=== PATIENT | female | born 1940 | race Hispanic/Latino ===

== ENCOUNTER 2016-12-01 00:22 | Day surgery (SDC) | payer MEDICAID ==
[2016-12-01] VITALS (7 sets, daily range): BP systolic 142–174; BP diastolic 51–130; PULSE 67–79; RESP 16–18; O2SAT 94–99
[~2016-12-01] VITALS: Ht 152.4 cm; Wt 63.0 kg
[~2016-12-01 00:22] MED LIST: ASPI325T32 PO; CALC667C9 PO; CINA90TA PO; FOLI1TAB18 PO; INSU100I13 SUBQ; INSU100I18 SUBQ; METO50TA3 PO; MULT-907 PO; SEVE800T7 PO
[2016-12-01 11:01] LABS: BASOPHILS % (AUTO) 0.3 % (0-3); EOSINOPHILS % (AUTO) 1.2 % (0-5); MONOCYTES % (AUTO) 6.7 % (4-12); Mean Corpuscular Hemoglobin 31.2 pg (27.0-35.0); Mean Corpuscular Volume 96.1 fL (81-100); NEUTROPHILS % (AUTO) 73.7 % (40-74); Platelet Count 223 bil/L (150-400)
[2016-12-01 11:22] LABS: INR 0.98 ratio
[2016-12-01] MEDS ORDERED: 0.9% Sodium Chloride 500 ML ONE (14:00)
[2016-12-01] MEDS ORDERED: Dextrose 5% 0.45% NaCl 1,000 ML IV ONE (14:00)
--- NOTE | 2016-12-01 15:58 | DRSVH ---
PROCEDURE: 1. Left arm AV fistulogram. 2. Conscious sedation x22 minutes. INDICATIONS: Malfunctioning arteriovenous fistula. COMPARISON: [facility], XA, ARTERIO VENOUS FISTULOGRAM (PNL), 09/02/2014, 11:47. TECHNIQUE: Informed, written consent from the patient was obtained via an park interpreter prior to the pr ocedure. Patient was brought to the angiography suite, and conscious sedation was administered intrav enously by shelter staff, while continuous cardiorespiratory monitoring was performed. Jail[place] l sterile barrier technique, hand hygiene, skin preparation, and sterile ultrasound technique (if ult rasound was utilized) was followed. A mask, sterile gown, sterile gloves, a large sterile sheet, hand hygiene, and 2% chlorhexidine or iodine was utilized for skin antisepsis. The left arm was prepped a nd draped sterilely, and the skin and subcutaneous tissues overlying the peripheral aspect of the venancio ous limb were infused with lidocaine. The peripheral aspect of the venous limb was accessed antegrade with a micropuncture set. Contrast was injected for arteriovenous fistulogram. The sheath was remove d and pressure was applied for hemostasis. FLUOROSCOPY TIME: 0.6 minutes FINDINGS: No change in mild stenosis at the arteriovenous anastomosis.remainder of the cephalic vein and venous limb is patent. Mild focal stenosis within the left subclavian vein. Central draining venancio ous structures are otherwise patent. IMPRESSION: No significant stenosis involving left upper extremity arteriovenous fistula. Dictated by: Jg Ortiz M.D. on 12/01/2016 at 15:42 Approved by: Jg Ortiz M.D. on 12/01/2016 at 15:56
--- NOTE | 2016-12-01 16:13 | NUR ---
discharge instruction reviewed in Swedish and Stateless with patient and her son who is fluent in Stateless,
--- NOTE | 2016-12-01 16:14 | NUR ---
Pt discharged via wheelchair.
== END 2016-12-01 23:59 | disposition home or self-care (01) ==
LOC: SOUO 00:22
PROVIDERS: ATTEND Radiology Diagnostic Radiology
DX: T82.510A Breakdown (mechanical) of surgically created arteriovenous fistula, initial encounter (principal); R22.32 Localized swelling, mass and lump, left upper limb; I87.1 Compression of vein; Y83.2 Surgical operation with anastomosis, bypass or graft as the cause of abnormal reaction of the patient, or of later complication, without mention of misadventure at the time of the procedure; D63.1 Anemia in chronic kidney disease; N18.6 End stage renal disease; Z99.2 Dependence on renal dialysis
CPT/HCPCS: 36415; 36901; 80048; 85025; 85610; 85730; 99152; C1769; Q9967

== ENCOUNTER 2017-01-04 16:43 | Inpatient (IN) | payer MEDICAID ==
[~2017-01-04] VITALS: Ht 147.3 cm; Wt 57.0 kg
[2017-01-04 16:54] VITALS: BP 170/64; PULSE 67; RESP 16; O2SAT 97
--- NOTE | 2017-01-04 18:17 | ED.REPORT ---
HPI-General Illness Date of Service Jan 04, 2017 ED Provider: Ish Manning DO Patient is a 76 year old female with a history of ESRD on dialysis, diabetes mellitus, diverticulitis with perforation, C diff colitis, small bowel obstruction, and recurrent UTIs who presents to the ED after she became confused while at dialysis this afternoon. On arrival to the ED the patient complains of abdominal pain. She localizes her pain to her suprapubic area, with radiation to her back. The patient first states that she did not go to dialysis today, but then states that she "forgot" when she was reminded that she attended dialysis. History is limited by the patient's mental status. Nursing Notes Stated Complaint: SENT BY DIALYSIS,POSS INFECTION Chief Complaint: Female Abdominal Pain Nursing Notes Reviewed: Yes Allergies: Coded Allergies: Cephalosporins (Verified Allergy, Unknown, 01/04/17) causes confusion cefazolin sodium (Verified Allergy, Unknown, NO ADR WITH CEFTRIAXONE IN ER , 01/04/17) morphine (Verified Adverse Reaction, Intermediate, Hallucinations, 01/04/17 ) Family reported morphine caused hallucination Scheduled Amlodipine (Amlodipine) 10 Mg Tablet 10 MG PO QAM Aspirin (Aspirin) 325 Mg Tablet.dr 325 MG PO QAM Calcium Acetate (Calcium Acetate) 667 Mg Capsule 667 MG PO TIDWM Ciclopirox Olamine (Ciclopirox) 15 Gm Cream..g. 1 APPLIC TP BID Cinacalcet HCl (Sensipar) 90 Mg Tablet 90 MG PO QAM Clonidine 0.2 mg/day Patch (Catapres TTS-2) 1 Each Patch 1 PATCH TRANSDERM WEEKLY Erythromycin Ophth Oint (Erythromycin Ophth Oint) 3.5 Gm Oint...g. 1 APPL TOPICAL BID APPLY TO TOES FOR INFECTION Folic Acid (Folic Acid) 1 Mg Tablet 5 MG PO DAILY Hydralazine (Hydralazine) 50 Mg Tablet 50 MG PO TID Insulin Glargine (Lantus U100 Solostar Insulin Pen) 100 Unit/1 Ml Insuln.pen 5- 10 UNIT SUBQ HS Insulin Lispro (HumaLOG U100 Insulin Pen) 100 Unit/1 Ml Insuln.pen 1-12 UNITS SUBQ TID-INSULIN Blood Sugar Lispro Correction <151 0 units 151-175 1 unit 176-200 2 units 201-225 3 units 226-250 4 units 251-275 5 units 276-300 6 units 301-325 7 units 326-350 8 units 351-375 9 units 376-400 10 units >400 12 units Check blood sugars before meals and at bedtime. Use correction factor only before meals. Isosorbide MN ER (Isosorbide MN ER) 120 Mg Tab.er.24h 120 MG PO QAM Metoprolol Tartrate (Metoprolol Tartrate) 50 Mg Tablet 50 MG PO BID Multivitamin, Min Cmb#25/FA/D3 (Dialyvite [place] D Tablet) 1 Each Tablet 1 EACH PO QAM Sevelamer Carbonate (Renvela) 800 Mg Tablet 800 MG PO TIDWM WITH MEALS AND SNACKS General Time Seen by MD: 18:17 Chief Complaint Abdominal pain, Other (confusion) Hx Obtained From: Patient, Son, Trimmer Loader Arrived By: Walk-in Sudden in Onset?: No Onset Occurred: 1 - 4 hours ago Symptom Duration: Since onset Location: : Abdomen Quality: Painful Severity: Current: Moderate Severity: Maximum: Moderate Recent Healthcare: Recent doctor visit Similar Sx Previous: Yes Past Medical History 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 Dyslipidemia. 2. End-stage renal disease. a. Secondary hyperparathyroidism. b. 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 3. Recurrent urinary tract infections. Urine culture (December 25, 2013) yielded E. coli resistant to Unasyn, ampicillin, piperacillin, and quinolones. 4. Clostridium difficile colitis. 5. Healthcare associated pneumonia 6. DVT 7. diverticulitis 8. ileus with prior small bowel obstruction Reports: Diabetes mellitus, GERD, Hyperlipidemia, Hypertension Past Surgical History 1. diverticular perforation requiring laparotomy and small-bowel resection and primary anastomosis with postoperative abscess and prolonged antibiotics. 2. AV fistula 3. patellar fracture repair 4. traumatic finger amputations Reports: Cholecystectomy Smoking History Never Smoker Social History Alcohol Use: Denies alcohol use Other Social History: Good social support, Local resident Ambulatory Status Independent Review of Systems Unable to Obtain ROS Mental status (limited by confusion) Full Review of Systems GI: Reports: Abdominal pain Female: Reports: Flank pain Musculoskeletal: Reports: Back pain Psychiatric: Reports: Confusion Physical Exam Vital Signs Vital Signs Date Time Temp Pulse Resp B/P Pulse Ox O2 Delivery O2 Flow Rate FiO2 01/04/17 19:28 36.5 71 18 222/79 97 Room Air 4/18/17 16:54 36.1 67 16 170/64 97 Room Air Initial VS: Reviewed Psychiatric: Mood/affect normal, Behavior normal General/Constitutional: Awake, Alert Alertness: Positive: Confused (does not know why she is in the ED) Head / Eyes: Atraumatic, Normocephalic, PERRL ENT: Airway patent Neck: Supple Respiratory / Chest: Breath sounds NL, Breath sounds = bilat, No respiratory distress, No rales, No rhonchi, No wheezing Cardiovascular: Heart rate NL, Regular rhythm Heart Sounds / Murmur: Positive: Systolic murmur present.. (ejection murmur) Abdomen: Soft Tenderness/Guarding/Rebound: Positive: Tender suprapubic Upper Extremities Upper Extremity / MS: No swelling, No edema Lower Extremity / Pelvis / MS: No swelling, No edema Neurologic: Speech NL, No motor deficits, No sensory deficits, CN II - XII intact Mental Status: Positive: Confused Interpretation & Diagnostics Lab Results Interpretation Result Diagram: 01/04/17 1809 01/04/17 180 Test 01/04/17 17:54 01/04/17 18:09 Urine Color Dark yellow (YELLOW) Urine Appearance Turbid (CLEAR,HAZY) Urine pH 8.0 (5.0-8.0) Urine Specific [place] 1.015 (1.003-1.035) Urine Protein 300mg/dL (NEG,TRACE) Urine Glucose (UA) 100mg/dL (NEGATIVE) Urine Ketones Negativemg/dL (NEGATIVE) Urine Occult Blood Large (NEGATIVE) Urine Nitrite Positive (NEGATIVE) Urine Bilirubin Negative (NEGATIVE) Urine Urobilinogen 1.0mg/dL (NORMAL) Urine Leukocyte Esterase Moderate (NEGATIVE) Urine RBC 11-50/hpf (0-2) Urine WBC 6-10/hpf (0-5) Urine Epithelial Cells None/hpf (NONE-MOD) Urine Crystals None seen (NONE SEEN) Urine Bacteria Many/hpf (NONE-FEW) Urine Hyaline Casts None/lpf (NONE) Urine Granular Casts None seen (NONE SEEN) Urine Waxy Casts None seen (NONE SEEN) Urine Red Blood Cell Casts None seen (NONE SEEN) Urine White Blood Cell Casts None seen (NONE SEEN) Urine Mucus Present (None Seen) Urine Trichomonas None seen (NONE SEEN) Urine Yeast None (NONE SEEN) Urinalysis Comment None Urine Culture Reflexed Indicated White Blood Count 7.8th/mm3 (3.8-10.1) Red Blood Count 3.90mil/mm3 (3.90-5.20) Hemoglobin 12.5g/dL (12.0-15.6) Hematocrit 38.4% (35.0-46.0) Mean Corpuscular Volume 98.5fL (81-100) Mean Corpuscular Hemoglobin 32.1pg (27.0-35.0) Mean Corpuscular Hemoglobin Concent 32.6% (32.0-37.0) Red Cell Distribution Width 14.3% (12.3-15.4) Platelet Count 187bil/L (150-400) Neutrophils (%) (Auto) 72.0% (40-74) Lymphocytes (%) (Auto) 17.0% (14-46) Monocytes (%) (Auto) 8.3% (4-12) Eosinophils (%) (Auto) 2.2% (0-5) Basophils (%) (Auto) 0.4% (0-3) Sodium Level 132mEq/L (134-144) Potassium Level 3.7mEq/L (3.5-5.2) Chloride Level 89mEq/L (97-108) Carbon Dioxide Level 27mmol/L (18-29) Blood Urea Nitrogen 16mg/dL (8-27) Creatinine 3.42mg/dL (0.57-1.00) Estimat Glomerular Filtration Rate 19mL/min (>59) Glucose Level 311mg/dL (60-99) Lactic Acid Level 1.2mmol/L (0.4-2.0) Calcium Level 10.2mg/dL (8.5-10.1) Magnesium Level 1.8mg/dL (1.6-2.6) Total Bilirubin 0.2mg/dL (0.0-1.2) Aspartate Amino Transf (AST/SGOT) 11U/L (0-50) Alanine Aminotransferase (ALT/SGPT) 5U/L (0-32) Alkaline Phosphatase 127U/L (25-165) Total Protein 7.4g/dL (6.4-8.4) Albumin 4.0g/dL (3.4-5.0) Lipase 66U/L (13-60) Procalcitonin 0.21ng/mL (0.00-0.08) X-Ray Chest Interpretation Chest Xray Interpretation: IMPRESSION: Normal for age, except for mildly reduced inspiratory volume, no pneumonia found. Dictated by: Ashutosh Sue M.D. on 01/04/2017 at 19:31 Approved by: Ashutosh Sue M.D. on 01/04/2017 at 19:31 View: Portable Interpretation / Wet Read by: Interpret - Radiologist CT Head Interpretation IMPRESSION: Mild microvascular atherosclerotic change in the deep white matter of each hemisphere, no acute disease. No appreciable global climate change researcher time. Dictated by: Ashutosh Sue M.D. on 01/04/2017 at 19:17 Approved by: Ashutosh Sue M.D. on 01/04/2017 at 19:18 Study: Head CT no contrast Interpretation / Wet Read by: Interpret - Radiologist Re-Eval/Medical Decision Source of Hx: Old records Time of Eval: 19:00 Re-Evaluation/Progress Note: Patient and her son were informed that the patient will be admitted to the hospital for further care. They understand and agree with this plan. All questions were addressed. Consultation : Referral / Consult Name: Herlinda Mehta DO Consulted With: Hospitalist Call Returned at: 19:12 Data Processing Specialist: Will see patient, Agrees with eval, Agrees with plan, Accepts admit Note: Spoke with Dr. Mehta, hospitalist, who agrees to accept admit. Counseled Regarding: Diagnosis, Lab results, Need for admission Discharge & Departure Primary Impression: UTI (urinary tract infection) Urinary tract infection type: acute cystitis Hematuria presence: without hematuria Qualified Code: N30.00 - Acute cystitis without hematuria Additional Impressions: ESRD (end stage renal disease) on dialysis Confusion Disposition: ADMITTED TO HOSPITAL Discharge Condition All VS Reviewed: Yes Condition: Stable Referrals: Tierney Clifton MD Attestation Portions of this note were transcribed by Adri Watts. I, Dr. Manning personally performed the history, physical exam and medical decision-making; I reviewed and confirmed the accuracy of the information in the transcribed note. Signed by: Kevin Muñoz, 01/04/2017 1938 copies to: Tierney Clifton MD, Todd P DO Jan 04, 2017 18:17 Adri Watts Jan 04, 2017 18:41
[2017-01-04 18:18] LABS: BASOPHILS % (AUTO) 0.4 % (0-3); EOSINOPHILS % (AUTO) 2.2 % (0-5); MONOCYTES % (AUTO) 8.3 % (4-12); Mean Corpuscular Hemoglobin 32.1 pg (27.0-35.0); Mean Corpuscular Volume 98.5 fL (81-100); Platelet Count 187 bil/L (150-400)
[2017-01-04 18:31] LABS: APPEARANCE,URINE TURBID (CLEAR,HAZY); COLOR,URINE DARK YELLOW (YELLOW); OCCULT BLOOD,URINE LARGE (NEGATIVE)
[2017-01-04 18:40] LABS: Magnesium 1.8 mg/dL (1.6-2.6)
[2017-01-04] MEDS ORDERED: Piperacillin-Tazo 3.375 Gm Inj 3.375 GM in Dextrose 5% Minibag Plus 50 ML IV ONE (19:00)
[2017-01-04] MEDS ORDERED: Ondansetron 2 mg/mL 2 mL Inj IVPUSH PRN (19:15)
[2017-01-04] MEDS ORDERED: Polyethylene Glycol (PEG) 17 Gm Powder PO PRN (19:15)
[2017-01-04] MEDS ORDERED: Alum-Mag Hydrox-Simeth 30 mL Suspension PO PRN (19:15)
--- NOTE | 2017-01-04 19:20 | DRSVH ---
PROCEDURE: CT BRAIN WITHOUT CONTRAST ([id number]) INDICATIONS: altered mental status TECHNIQUE: Noncontrast 4.5 mm thick angled axial sections acquired from the foramen magnum to the vertex, with c oronal reformats. COMPARISON: [facility], CT, BRAIN W/O CONTRAST, 04/24/2014, 12:28. FINDINGS: Image quality: Excellent. CSF spaces: Basal cisterns are patent. No extra-axial fluid collections. The ventricles are symmet ahsan in size and shape. Brain: No intracranial bleeds or masses. There is cerebral volume loss for age, with resultant vent ricular and sulcal prominence. There are periventricular and deep white matter chronic small vessel ischemic changes. There is intracranial internal carotid artery atherosclerosis. Skull and face: Calvarium and visualized facial bones appear intact, without suspicious lesions. Sinuses: Visualized sinuses and mastoids are clear. IMPRESSION: Mild microvascular atherosclerotic change in the deep white matter of each hemisphere, n o acute disease. No appreciable blade changer time. Dictated by: Ashutosh Sue M.D. on 01/04/2017 at 19:17 Approved by: Ashutosh Sue M.D. on 01/04/2017 at 19:18
[2017-01-04 19:28] VITALS: BP 222/79; PULSE 71; RESP 18; O2SAT 97
--- NOTE | 2017-01-04 19:33 | DRSVH ---
PROCEDURE: X-RAY CHEST, TWO VIEWS ([id number]) INDICATIONS: sepsis, altered TECHNIQUE: 2 views of the chest were acquired. COMPARISON: None. FINDINGS: Surgical changes and devices: None. Lungs and pleura: No pleural effusions or pneumothorax. Lungs are clear. Mediastinum: Mediastinal contours are normal. Heart size is normal. Bones and chest wall: No suspicious bony abnormalities. Soft tissues appear unremarkable. IMPRESSION: Normal for age, except for mildly reduced inspiratory volume, no pneumonia found. Dictated by: Ashutosh Sue M.D. on 01/04/2017 at 19:31 Approved by: Ashutosh Sue M.D. on 01/04/2017 at 19:31
--- NOTE | 2017-01-04 20:08 | PCM.HPMED ---
Subjective Date of Service Jan 04, 2017 Primary Provider: Admitting Physician: Herlinda Mehta DO Primary Care Physician: Anuj Attending Physician: Herlinda Mehta DO Admit Status: From the Emergency Department Chief Complaint: Confusion History of Present Illness: Ms. Ricardo Leach is a pleasant, yet confused, 76 year old woman with history of ESRD secondary to DM on HD, diabetic retinopathy with resulting blindness, and HTN, that presented to [facility] after completing HD with a three day history of confusion. She was admitted for evaluation and treatment of altered mental status. Hospital day one. Ms. Ricardo Leach is a woman that lives locally with her son, and completes HD every //Tuesday with Drs. Clifton and Bud following. Her son is present, and provided the majority of the history, as the patient is currently an unreliable historian secondary to AMS. She states that she is currently located in a "small house," and cannot state what year it is, and simply says "i don't know," and cannot provide a guess. She does not recall events earlier in the day. Her son shares that she has been confused over the recent three days leading to admission. No recent history of GLF, but son does report she fell in the shower a few weeks ago and injured her back. No medical care was sought at that time, and he denies any head injury. She is compliant with her HD. No recent medication changes, missed dosings, or changes in routine. Denies associated fever, chills, nausea, vomiting. Admits to associated abdominal discomfort and bloating sensation and constipation, back pain. She does not make large amounts of urine, but son reports she still has small amounts urine output. Denies any recent sick contacts. Admits to history of similar symptoms with resolution. She and son state that she 'wants to live,' and this was confirmed by both son and patient. Son states that he understands the risks associated with CPR/ intubation, and agrees to proceed with full code status. Review of Systems: Complete ROS obtained; pertinent positives and negatives as noted in HPI; limited secondary to AMS, but patient was able to convey back pain, abdominal distention Allergies Coded Allergies: Cephalosporins (Verified Allergy, Unknown, 01/04/17) causes confusion cefazolin sodium (Verified Allergy, Unknown, NO ADR WITH CEFTRIAXONE IN ER , 4/18/17) morphine (Verified Adverse Reaction, Intermediate, Hallucinations, 01/04/17 ) Family reported morphine caused hallucination Home Medications List obtained from ED admission. Patient not accurate historian at this time, and cannot recall any medications. Son also cannot recall names of medications, but states pharmacy is [facility] in [place]. Scheduled Aspirin (Aspirin) 325 Mg Tablet.dr 325 MG PO DAILY Calcium Acetate (Calcium Acetate) 667 Mg Capsule 667 MG PO TIDWM Cinacalcet HCl (Sensipar) 90 Mg Tablet 90 MG PO DAILY Folic Acid (Folic Acid) 1 Mg Tablet 5 MG PO DAILY Insulin Glargine (Lantus U100 Solostar Insulin Pen) 100 Unit/1 Ml Insuln.pen 10- 20 UNIT SUBQ QPM-INSULIN Insulin Lispro (HumaLOG U100 Insulin Pen) 100 Unit/1 Ml Insuln.pen Unknown Dose SUBQ TID-INSULIN Blood Sugar Lispro Correction <151 0 units 151-175 1 unit 176-200 2 units 201-225 3 units 226-250 4 units 251-275 5 units 276-300 6 units 301-325 7 units 326-350 8 units 351-375 9 units 376-400 10 units >400 12 units Check blood sugars before meals and at bedtime. Use correction factor only before meals. Metoprolol Tartrate (Metoprolol Tartrate) 50 Mg Tablet 50 MG PO DAILY Multivitamin, Min Cmb#25/FA/D3 (Dialyvite [place] D Tablet) 1 Each Tablet 1 EACH PO DAILY Sevelamer Carbonate (Renvela) 800 Mg Tablet 800 MG PO TID PMH 1. Dyslipidemia. 2. End-stage renal disease. a. Secondary hyperparathyroidism. b. 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 3. Recurrent urinary tract infections. Urine culture (December 25, 2013) yielded E. coli resistant to Unasyn, ampicillin, piperacillin, and quinolones. 4. Clostridium difficile colitis. 5. Healthcare associated pneumonia 6. DVT 7. diverticulitis 8. ileus with prior small bowel obstruction Reports: Diabetes mellitus, GERD, Hyperlipidemia, Hypertension, diabetic retinopathy Surgical History 1. diverticular perforation requiring laparotomy and small-bowel resection and primary anastomosis with postoperative abscess and prolonged antibiotics. 2. AV fistula; left UE 3. patellar fracture repair 4. traumatic finger amputations Reports: Cholecystectomy Family History Son states that he is unaware of any other conditions within the family; he denies any known heart disease, pulmonary complications, or cancers Social History Occupation: unemployed Hx Alcohol Use: No Hx Substance Use: No Hx Tobacco Use: No Smoking Status: Never Smoker Living Arrangement: with Family (Son, local in [place]) Exam Vital Signs Vital Sign - Last Date Time Temp Pulse Resp B/P Pulse Ox O2 Delivery O2 Flow Rate FiO2 01/04/17 19:28 36.5 71 18 222/79 97 Room Air Exam General: Alert and interactive, but not oriented to time or place; no acute distress HEENT: Atraumatic, sclera anicteric, oropharynx moist Neck: Full range of motion, no JVD appreciated Cardiac: Regular heart rate, systolic murmur appreciated best at RUSB Respiratory: Adequate airflow all ventura, no wheeze appreciated or coarse sounds Abdomen: Soft, nontender, nondistended Extremities: Bilateral lower extremities free of edema, left upper extremity antecubital fossa significant for fistula with thrill Skin: Warm and dry Neuro: No focal neurologic deficits appreciated, patient was able to follow commands well Psych: Assessment limited by altered mental status, but patient was appropriate in responses and mood Lab and Diagnostics Result Diagram: 01/04/17180801/04/171808 Assessment & Plan Ms. Ricardo Leach is a pleasant, yet confused, 76 year old woman with history of ESRD secondary to DM on HD, diabetic retinopathy with resulting blindness, and HTN, that presented to [facility] after completing HD with a three day history of confusion. She was admitted for evaluation and treatment of altered mental status. Hospital day one. Altered mental status, acute, present on admission. Under evaluation - Patient's son reports 3 day history of confusion - On admit: WBC 7.8, LA 1.2, LFTs within range; BUN 16, Cr 3.42, glucose 311, lipase 66 - Broad DDx: Infection, medications, endocrine abnormalities, glucose abnormalities, acute organ failure, head injury, CVA, respiratory compromise, nutritional deficiencies, HTN encephalopathy - CT brain 01/04: Mild microvascular atherosclerotic change in the deep white matter of each hemisphere, no acute disease. No appreciable change management analyst time. No evidence CVA - Blood cultures, urinary cultures, ordered and pending - CXR 01/04 no evidence PNA per report; will repeat - PCT added on + in am - B12/folate, Mg, phos, thyroid panels in am Suspected UTI, acute, present on admission. Under therapy - History of recurrent UTIs; reported allergy to cephalosporins/cefazolin; patient currently too altered to report reaction - On admit: UA large occult blood, many bacteria, moderate LE, positive nitrite - 07/2014: E. coli resistant to quinolones, and intermediate resistance to piperacillin - Received zosyn in ED - Continue with ertapenem at this time; low cross reactivity with cephalosporins , tolerated during admission 04/2014 - Erta 500mg IV q24 renal dosing given post-HD ESRD on HD, chronic. 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 Presumed stable - Home meds continued: amlodipine, clonidine, hydralazine, metoprolol, isosorbide MN Constipation, acute, present on admission. Under therapy - Bowel meds avail prn - DVT: SCDs only at this time until head CT read finalized to rule out bleeding - GI: Not indicated - Diet: Heart healthy and consistent carb - PRN: bowel/fever/pain/antiemetics - Code: FULL CODE Patient status: Due to severity of presenting symptoms and risk of adverse events, anticipated LOS > 2 midnights; admitted as INPT Pain Evaluation: Adequate Pain Control GI Prophylaxis: Not indicated VTE Prophylaxis: SCDs Resuscitation Status: CPR: Attempt Resuscitation Attending Statement The patient was seen and examined together with house staff on 01/04/17 and I agree with the history, exam and plan as outlined in the note above. Bia Gross DO Jan 04, 2017 20:07 Herlinda Mehta DO Jan 05, 2017 03:39
[2017-01-04] MEDS ORDERED: ERYT30GE12 TP (20:19)
[2017-01-04] MEDS ORDERED: AMLO10TA3 PO (20:19)
[2017-01-04] MEDS ORDERED: HYDR-3940 PO (20:19)
[2017-01-04] MEDS ORDERED: CLON1PAT2 TRANSDERM (20:19)
[2017-01-04] MEDS ORDERED: CICL15CR12 TP (20:19)
[2017-01-04] MEDS ORDERED: ISOS120T6 PO (20:19)
[2017-01-04] MEDS ORDERED: ERYT1OIN7 TOPICAL (20:22)
[2017-01-04 20:39] VITALS: BP 209/78; PULSE 74; RESP 16; O2SAT 98
[2017-01-04] MEDS ORDERED: Glucose 40% Oral Gel 15 Gm Tube PO PRN (21:00)
[2017-01-04 21:09] VITALS: PULSE 70
--- NOTE | 2017-01-04 22:03 | NUR ---
Admit Patient arrived to room 3022 at 2015 from ED, accompanied by son. Patient is blind and Lithuanian-speaking only. Denies pain. Telemetry connected. Son translated to patient for admit assessment. Oriented to room, call light, plan of care, intentional rounding. Yellow socks on for safety. Son staying overnight. White board updated. Call light within reach, will use bed alarm overnight.
[2017-01-04] MEDS ORDERED: Labetalol 5 mg/mL 4 mL Inj IVPUSH PRN (22:30)
[2017-01-04] MEDS: Insulin LISPRO 300 Unit/3 mL Inj SUBQ SCH (23:31)
[2017-01-04] MEDS: Insulin GLARgine 100 Unit/mL Syringe SUBQ SCH (23:32)
[2017-01-05] VITALS (8 sets, daily range): BP systolic 144–181; BP diastolic 62–74; PULSE 57–68; RESP 18–20; O2SAT 97–99
[2017-01-05] MEDS: Insulin LISPRO 300 Unit/3 mL Inj SUBQ SCH ×4 (08:00→20:34)
[2017-01-05] MEDS: Isosorbide Mononitrate 30 mg ER24 Tablet PO SCH (08:03)
[2017-01-05 08:05] LABS: BASOPHILS % (AUTO) 0.3 % (0-3); EOSINOPHILS % (AUTO) 2.2 % (0-5); MONOCYTES % (AUTO) 8.9 % (4-12); Mean Corpuscular Volume 98.6 fL (81-100); NEUTROPHILS % (AUTO) 63.5 % (40-74); Platelet Count 179 bil/L (150-400)
[2017-01-05] MEDS ORDERED: Ertapenem Inj 500 MG in 0.9% Sodium Chloride 50 ML IV SCH (08:30)
[2017-01-05 09:15] LABS: Magnesium 2.1 mg/dL (1.6-2.6)
--- NOTE | 2017-01-05 10:06 | DRSVH ---
PROCEDURE: X-RAY CHEST ONE VIEW, PORTABLE ([id number]) INDICATIONS: confusion TECHNIQUE: One view of the chest was acquired. COMPARISON: [facility], CR, XR CHEST 2VW, 01/04/2017, 19:09. [facility], CR, XR CHEST 2VW, 05/28/2016, 21:26. FINDINGS: Surgical changes and devices: None. Lungs and pleura: No pleural effusions or pneumothorax. Lungs are clear. Mediastinum: Mediastinal contours appear normal. Heart size is normal. Bones and chest wall: No suspicious bony lesions. Overlying soft tissues appear unremarkable. IMPRESSION: Reduced inspiratory volume, source of confusion not found. Dictated by: Ashutosh uSe M.D. on 01/05/2017 at 10:04 Approved by: Ashutosh Sue M.D. on 01/05/2017 at 10:04
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
--- NOTE | 2017-01-05 14:53 | NUR ---
Confusion Pt confused this AM. Refusing to take AM meds-helped when applesauce used. budget consultant at bedside. POSE alarm used in recliner chair and bed alarm when resting. Had a hard time detouring pt, called jasmin Mccollum in. Pt now noticeably calm, had lunch and resting in recliner chair. Will continue to monitor.
--- NOTE | 2017-01-05 15:38 | CONS ---
[address] [address] CONSULTATION REPORT PATIENT: JANET BELLAMY : 1940 MR#: [id number] ADMIT: 01/04/2017 JOB ID: [id number] DATE OF SERVICE: 01/05/2017 NEPHROLOGY CONSULTATION: REQUESTING PHYSICIAN: Dr. Richards. REASON FOR CONSULTATION: Management of end-stage renal disease. CHIEF COMPLAINT: Altered mental status. HISTORY OF PRESENT ILLNESS: This is a 76-year-old lady with significant past medical history of end-stage renal disease on hemodialysis, type 2 diabetes, hypertension who presented to the hospital due to confusion. The patient is now very confused. She is not able to provide a meaningful history. The patient was brought to the hospital due to altered mental status. According to the medical record, the patient was found confused over the past three days. It seems like the patient had dialysis yesterday. She is the patient of Dr. Clifton and Dr. Farrell. She is being dialyzed every Tuesday, , Tuesday at [facility]. Per record, the patient had an episode of a fall in the shower a couple weeks ago. She denies current history of nausea, vomiting, fever or chills, abdominal pain or diarrhea. This morning according to a nurse, the patient experienced some constipation. Her blood pressure noted to be elevated throughout the night. The highest blood pressure was 222/79. She has not had any fever overnight. The initial workup showed a pyuria in the UA and urine culture grew gram-negative edelmira over 100,000 CFU per mL. The patient received Zosyn last night and it was switched to ertapenem this morning. PAST MEDICAL HISTORY: 1. End-stage renal disease on hemodialysis every Tuesday, , Tuesday. 2. Type 2 diabetes with diabetic nephropathy. 3. Hypertension with hypertensive nephrosclerosis. 4. History of recurrent UTI. 5. History of C. difficile colitis. 6. Renal osteodystrophy. 7. Anemia of chronic kidney disease. 8. History of healthcare associated pneumonia. 9. Diverticulitis and diverticulosis. 10. Aortic stenosis. 11. Dyslipidemia. 12. Partial small bowel obstruction. SURGICAL HISTORY: 1. Diverticular perforation requiring laparotomy and small bowel resection and primary anastomosis with postoperative abscess and prolonged antibiotics in 2013. 2. AV fistula creation. 3. Patella fracture with repair. 4. Traumatic finger amputations. 5. Cholecystectomy. FAMILY HISTORY: Positive for diabetes. SOCIAL HISTORY: Denies current use of alcohol, tobacco or illicit drugs. ALLERGIES: CEPHALOSPORIN, CEFAZOLIN, MORPHINE. PHYSICAL EXAMINATION: Vitals: Temperature 36.4, pulse 59, respiratory 18, blood pressure 167/63. General appearance: Awake, verbal but confused. She thinks she is at home. Unable to provide time, place and person correctly. HEENT: Mild pallor. No jaundice. No JVD. No lymphadenopathy. No thyroid enlargement. Atraumatic. Moist mucous membranes. PERRLA. Heart: Regular rhythm. Normal S1, S2. Systolic murmur noted. Abdomen: Soft, active bowel sounds. Nontender. Nondistended. No hepatosplenomegaly. Extremities: No edema, cyanosis or clubbing of the fingers. Left AV fistula with good thrill and bruit. LABORATORY: WBC 7.9, hemoglobin 13.3, sodium 134, potassium 4.7, chloride 89, bicarbonate 28, BUN 23, creatinine 4.76. Glucose 154. Calcium 10.8, phosphorus 3.0, magnesium 2.1. Procalcitonin 0.23. TSH 3.150. ASSESSMENT: 1. Altered mental status secondary to metabolic encephalopathy. 2. Suspected gram-negative edelmira urinary tract infection. 3. End-stage renal disease on hemodialysis. 4. Hypercalcemia. 5. Renal osteodystrophy. 6. Uncontrolled hypertension. 7. Type 2 diabetes with diabetic nephropathy. PLAN: 1. No urgent dialysis indicated at the moment. We will arrange for dialysis in the morning. 2. Hold calcium acetate. Continue only Renvela for a phosphate binder. 3. Add losartan 25 mg once a day for uncontrolled hypertension. Continue the rest of the blood pressure medications at the moment. 4. IV antibiotics as per primary team. Thank you for the consultation. We will monitor along with you. BERNABE
--- NOTE | 2017-01-05 17:26 | NUR ---
SW - Brief note SW spoke to PT who evaluated pt and stated that the recommendation is home if pt has substantial family support to assist with ADLs. She might be skillable for a SNF or HH if her presentation is a marked decrease from pt's baseline, but he was unable to determine this from pt herself. He suggested SW follow up with family. PIETER Munoz
[2017-01-05] MEDS: Insulin GLARgine 100 Unit/mL Syringe SUBQ SCH (20:43)
--- NOTE | 2017-01-05 22:25 | NUR ---
Support Pt is sleeping Son has left for the night. BED Alarm in place. Will cont to monitor pt hourly
[2017-01-06] VITALS (9 sets, daily range): BP systolic 124–180; BP diastolic 60–81; PULSE 62–88; RESP 16–20; O2SAT 94–98
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
[2017-01-06 06:49] LABS: BASOPHILS % (AUTO) 0.7 % (0-3); EOSINOPHILS % (AUTO) 2.8 % (0-5); MONOCYTES % (AUTO) 10.1 % (4-12); Mean Corpuscular Hemoglobin 32.1 pg (27.0-35.0); Mean Corpuscular Volume 97.2 fL (81-100); NEUTROPHILS % (AUTO) 59.6 % (40-74); Platelet Count 195 bil/L (150-400)
[2017-01-06 07:12] LABS: Vitamin B12 543 pg/mL (211-946)
[2017-01-06 07:40] LABS: Magnesium 2.3 mg/dL (1.6-2.6); Phosphorus 3.3 mg/dL (2.5-4.9)
[2017-01-06] MEDS: Insulin LISPRO 300 Unit/3 mL Inj SUBQ SCH ×4 (07:59→22:00)
[2017-01-06] MEDS: Isosorbide Mononitrate 30 mg ER24 Tablet PO SCH (08:00)
--- NOTE | 2017-01-06 08:55 | NUR ---
Dialysis Pt was transfered to [facility] room 244 for dialysis. No s/s of distress at time of transfer.
--- NOTE | 2017-01-06 08:56 | NUR ---
Pt arrived [place] [facility]: Pt arrived to [facility] for dialysis treatment. Report obtained from Bryanna Thomas RN. Pt appears stable at time of transfer. pyrotechnic assembler aware of transfer. Addendum: 01/06/17 at 1248 by NITA GALLEGOS RN Pt completed treatment and may return to [facility]. Report called to Bryanna Thomas RN. Pt's blood pressure elevated after blood returned 201/86. Pt is due to take her blood pressure medication on return to unit. Receiving nurse aware. pyrotechnic assembler called regarding pt return. Addendum: 01/06/17 at 1316 by STELLA THOMAS RN pt back on unit. and germination testing manager at bedside. Pt is hypertensive but had Rx held for morning dialysis. Will administer and continue to monitor
--- NOTE | 2017-01-06 12:50 | NUR ---
Dialysis note: 3 1/2 hrs tx 1000 ml net UF Left upper arm fistula Pls see DTR for VS details Qb 500 Heparin given O2 @ 2L via NC on during tx Tolerated tx, slept at intervals Fistula needle sites clotted w/in 10 min Stable condition at end of tx Report given to Tawny SLAUGHTER
--- NOTE | 2017-01-06 14:19 | DRSVH ---
PROCEDURE: US RENAL SONOGRAM INDICATIONS: UTI TECHNIQUE: Real-time scanning was performed of the kidneys and bladder, with image documentation. COMPARISON: [facility], CT, CT ABD PELVIS W CON, 10/05/2015, 20:43. FINDINGS: Kidneys: Right kidney measures 10.1 cm in length with renal cortical thinning with the cortex measur ing roughly 6 mm. The left kidney is difficult to visualize but measures roughly 9 cm in length with renal cortical thickness of 1.2 cm. Both kidneys are multicystic as was seen on previous CT scan la rgest cyst on the right measuring 2.7 cm and 3.4 cm on the left. No definite hydronephrosis is seen. Bladder: Urinary bladder is nondistended and suboptimally visualized. Miscellaneous: No free pelvic fluid. IMPRESSION: 1. Multicystic appearance of the kidneys bilaterally similar to previous CT scan and no definite hydr onephrosis is seen. 2. Right renal cortical thinning. 3. Left kidney is suboptimally visualized. Dictated by: Zhou Lino [facility] Interpreted: Ramone Moore MD on 01/06/2017 at 14:15 Transcribed by: DAKOTA on 01/06/2017 at 14:18 Approved by: Ramone Moore M.D. on 01/06/2017 at 14:51
--- NOTE | 2017-01-06 14:26 | PCM.PNNEPH ---
Subjective Date of Service Jan 06, 2017 Subjective Seen during HD. Awake but confused. stable v/s. Exam Vital Signs Vital Sign - Last Date Time Temp Pulse Resp B/P Pulse Ox O2 Delivery O2 Flow Rate FiO2 01/06/17 13:04 36.9 88 18 180/71 98 Room Air Intake and Output 01/05/17 01/05/17 01/06/17 Cumulative From/Thru 15:00 23:00 07:00 01/04/17 16:54 - 01/06/17 06:07 Intake Total 73 ml 200 ml 150 ml 623 ml Output Total 0 ml 0 ml Balance 73 ml 200 ml 150 ml 623 ml Intake Oral 200 ml 150 ml 550 ml IV Total 73 ml 73 ml Output Urine Total 0 ml 0 ml # Voids 1 1 # Bowel Movements 0 0 Exam General appearance: Awake, verbal but confused. She thinks she is at home. Unable to provide time, place and person correctly. HEENT: Mild pallor. No jaundice. No JVD. No lymphadenopathy. No thyroid enlargement. Atraumatic. Moist mucous membranes. PERRLA. Heart: Regular rhythm. Normal S1, S2. Systolic murmur noted. Abdomen: Soft, active bowel sounds. Nontender. Nondistended. No hepatosplenomegaly. Extremities: No edema, cyanosis or clubbing of the fingers. Left AV fistula with good thrill and bruit. Lab and Diagnostics Result Diagram: 01/06/1763901/06/17639 Plan Impression ASSESSMENT: 1. Altered mental status secondary to metabolic encephalopathy. 2. E.Coli urinary tract infection. 3. End-stage renal disease on hemodialysis. Revaclear, 3 1/2 hr, 2K, 37HCO3, DFR 600, BFR 500, UF 1L, AVF 4. Hypercalcemia. 5. Renal osteodystrophy. 6. Uncontrolled hypertension. 7. Type 2 diabetes with diabetic nephropathy. Plan: Next HD on Sat. increase losartan to 50 mg daily. d/c metoprolol, start labetalol 200 mg TID. Sravani Santos MD Jan 06, 2017 14:25
--- NOTE | 2017-01-06 15:07 | PCM.PNMED ---
Subjective Date of Service Jan 06, 2017 Subjective Patient remained confused as per [id number], but looked alert comfortable. knows her name, not place, can recognize family, [id number] stated that she had exact similar situation when she had urinary tract infection the past Ertapenem was continued based on urine culture sensitivity, Escherichia coli, Exam Vital Signs Vital Sign - Last Date Time Temp Pulse Resp B/P Pulse Ox O2 Delivery O2 Flow Rate FiO2 01/06/17 13:04 36.9 88 18 180/71 98 Room Air Intake and Output 01/05/17 01/05/17 01/06/17 Cumulative From/Thru 15:00 23:00 07:00 01/04/17 16:54 - 01/06/17 06:07 Intake Total 73 ml 200 ml 150 ml 623 ml Output Total 0 ml 0 ml Balance 73 ml 200 ml 150 ml 623 ml Intake Oral 200 ml 150 ml 550 ml IV Total 73 ml 73 ml Output Urine Total 0 ml 0 ml # Voids 1 1 # Bowel Movements 0 0 Exam NAD, comfortably laying down on the bed no JVD, MMM, no LAD RRR, nl s1, s2 no mrg Poor inspiratory effort, no w,c S,ND,NT,normoactive BS+ warm,trace edema, pulses 2/2 IVs and Medications Medications Reviewed: Medications were reviewed in detail Lab and Diagnostics Result Diagram: 01/06/1763901/06/1740 Assessment & Plan Ms. Ricardo Leach is a pleasant, yet confused, 76 year old woman with history of ESRD secondary to DM on HD, diabetic retinopathy with resulting blindness, and HTN, that presented to [facility] after completing HD with a three day history of confusion. She was admitted for evaluation and treatment of altered mental status. Hospital day one. acute, active, Acute encephalopathy, POA, labs unremarkable for toxic/metabolic etiology except UA+, likely related to UTI given his age, ESRD, CTH no acute findings, previous similar episode, possibility of ileus contributing to her sx given no BM>4D -pt still remained confused, not at baseline MS - B12/folate, Mg, phos, thyroid panels -neurocheck qshift, -started aggressive bowel regimen today Suspected UTI, acute, present on admission. Under therapy - History of recurrent UTIs; reported allergy to cephalosporins/cefazolin; patient currently too altered to report reaction - On admit: UA large occult blood, many bacteria, moderate LE, positive nitrite - 07/2014: E. coli resistant to quinolones, and intermediate resistance to piperacillin - Received zosyn in ED - Continue with ertapenem at this time; low cross reactivity with cephalosporins , tolerated during admission 04/2014 - Erta 500mg IV q24 renal dosing given post-HD, briefly discussed with as well. chronic, stable ESRD on HD, chronic. 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 Presumed stable - Home meds continued: amlodipine, clonidine, hydralazine, metoprolol, isosorbide MN - DVT: SCDs only at this time until head CT read finalized to rule out bleeding - GI: Not indicated - Diet: Heart healthy and consistent carb - PRN: bowel/fever/pain/antiemetics - Code: FULL CODE Patient status: likely 2-3more days, finish 5days of Ertapenem then no abx. GI Prophylaxis: Not indicated VTE Prophylaxis: SCDs VTE Mechanical Devices: Intermittant Pneumatic CD Resuscitation Status: CPR: Attempt Resuscitation Time spent 35min Jodi Richards MD Jan 06, 2017 15:07
[2017-01-06] MEDS: Polyethylene Glycol (PEG) 17 Gm Powder PO SCH ×2 (15:14→21:25)
[2017-01-06] MEDS: Ertapenem Inj 500 MG in 0.9% Sodium Chloride 50 ML IV SCH (15:51)
--- NOTE | 2017-01-06 15:52 | DRSVH ---
PROCEDURE: X-RAY KUB ([id number]) INDICATIONS: ileus TECHNIQUE: One view of the abdomen acquired. COMPARISON: [facility], CR, XR GASTROGRAF CHALLENG 1VW ABD, 05/30/2016, 14:19. [facility], CR, XR ABD W ERECT + OR DECUB 2 VW, 05/28/2016, 21:58. [facility], CR, XR CHEST 1VW (PORTABLE), 01/05/2017, 5:22. FINDINGS: Surgical changes and devices: Cholecystectomy clips. Bowel: Bowel gas pattern is normal. Soft tissues: No suspicious abdominal calcifications. Visualized solid organ contours appear normal in size. Bones: No suspicious bony lesions. IMPRESSION: No definite ileus or bowel obstruction identified. Dictated by: Zhou Lino RRA Interpreted: Ramone Moore MD on 01/06/2017 at 15:50 Transcribed by: DAKOTA on 01/06/2017 at 15:52 Approved by: Ramone Moore M.D. on 01/06/2017 at 16:38
--- NOTE | 2017-01-06 16:31 | NUR ---
Social Work: Initial Assessment Data: Pt is a 76 y/o female admitted for UTI, AMS, CRF. Pt's PCP is not listed, pt's insurance is [facility] Medicaid. EMR reviewed, Readmit score is 5, high. REC THERAPIST met with pt and daughter in law at bedside with public health educator. Pt states she lives with her son who cares for her in a single story home where she sometimes uses a walker. Pt states she does nto drive, has no hx of HH or SNF, no LTC or VA benefits. REC THERAPIST will fax a [facility] referral on 01/07. REC THERAPIST will look into SNF Medicaid beds as PT is recommending SNF; REC THERAPIST explained that Medicaid beds are hard to find, but UR specialist will look into the possibilities tomorrow. REC THERAPIST will continue to follow. Assessment: Pt from home with family. Plan: REC THERAPIST will fax a [facility] referral on 01/07. REC THERAPIST will look into SNF Medicaid beds as PT is recommending SNF; REC THERAPIST explained that Medicaid beds are hard to find, but UR specialist will look into the possibilities tomorrow. REC THERAPIST will continue to follow. PIETER Crocker Addendum: 01/06/17 at 1636 by CHRISTEL NG Amended: Links added.
--- NOTE | 2017-01-06 19:21 | NUR ---
mentation Patient was calm throughout shift and per [id number] pt was less confused and closer to baseline. Around 1800 pt began yelling and trying to get OOB, pt was transfer to natalya chair with leena alarm. Backup Engineer was called to see what was wrong with the patient. Backup Engineer stated that the patient was not making any sense. Pt continued to yell and attempt to get out of chair. INTERACTIVE WEB DEVELOPER at bedside as sitter
[2017-01-06] MEDS: Insulin GLARgine 100 Unit/mL Syringe SUBQ SCH (21:31)
--- NOTE | 2017-01-06 21:53 | NUR ---
NOC activity: increased restlessness at HS, uncooperative. call placed to jasmin Mccollum, who came in to sit w/ her. she became calmer and cooperative. b/p 180/77, routine HS meds (hydralazine) given. temp 37.7, several blankets removed, resting comfortably now w/ 1 blanket and sheet. CTM for changes. Addendum: 01/07/17 at 0029 by CESAR LATIF RN 2430: prn Apap given for pain/fever, temp now 37.1. 1:[address] for increased restlessness and attempts to self-transfer. Addendum: 01/07/17 at 0145 by CESAR LATIF RN 0130: report given to SUKHJINDER sandy.
[2017-01-07] VITALS (9 sets, daily range): BP systolic 110–197; BP diastolic 52–83; PULSE 60–93; RESP 18–20; O2SAT 95–100
--- NOTE | 2017-01-07 02:22 | NUR ---
Activity Received pt at 0130, Pt sleeping at time. No noted issues, 1 to 1 staff observation. Call light at bedside. Will monitor.
--- NOTE | 2017-01-07 03:57 | NUR ---
restless Pt attempting to get out of bed, 1 on 1 staff at bedside encouraging pt to remain in bed to sleep. Pt confused as to place, reoriented without resolving issue. Pt agreed to try to sleep. Will monitor.
--- NOTE | 2017-01-07 06:47 | NUR ---
BP Pt BP 197/75, gave morning Aprazoline at 0615. Paged night hospitalist. Will monitor.
[2017-01-07] MEDS: Polyethylene Glycol (PEG) 17 Gm Powder PO SCH ×2 (08:30→22:06)
[2017-01-07] MEDS: Isosorbide Mononitrate 30 mg ER24 Tablet PO SCH (08:55)
[2017-01-07] MEDS: Insulin LISPRO 300 Unit/3 mL Inj SUBQ SCH ×4 (08:57→22:00)
--- NOTE | 2017-01-07 10:23 | NUR ---
Antibiotic Invanz still unable to be located in facility per Pharmacist. Was scheduled for 829. SUKHJINDER Roman, asked earlier regarding medication, still unavailable.
--- NOTE | 2017-01-07 11:44 | PCM.PNNEPH ---
Subjective Date of Service Jan 07, 2017 Subjective Pt has been agitated overnight and disoriented. BP was elevated. HD yesterday without complications. Exam Vital Signs Vital Sign - Last Date Time Temp Pulse Resp B/P Pulse Ox O2 Delivery O2 Flow Rate FiO2 01/07/17 09:24 36.7 92 20 173/83 97 Room Air Intake and Output 01/06/17 01/06/17 01/07/17 Cumulative From/Thru 15:00 23:00 07:00 01/04/17 16:54 - 01/07/17 06:09 Intake Total 250 ml 100 ml 973 ml Output Total 1000 ml 0 ml 0 ml 1000 ml Balance -1000 ml 250 ml 100 ml -27 ml Intake Oral 120 ml 100 ml 770 ml IV Total 130 ml 203 ml Output Urine Total 0 ml 0 ml 0 ml Ultrafiltrate 1000 ml 1000 ml # Voids 1 # Bowel Movements 0 0 Exam General appearance: Awake, agitated, verbal but confused. Disoriented to time, place and person. HEENT: Mild pallor. No jaundice. No JVD. No lymphadenopathy. No thyroid enlargement. Atraumatic. Moist mucous membranes. PERRLA. Heart: Regular rhythm. Normal S1, S2. Systolic murmur noted. Abdomen: Soft, active bowel sounds. Nontender. Nondistended. No hepatosplenomegaly. Extremities: No edema, cyanosis or clubbing of the fingers. Left AV fistula with good thrill and bruit. Lab and Diagnostics Result Diagram: 01/06/1763901/06/17639 Plan Impression ASSESSMENT: 1. Altered mental status secondary to metabolic encephalopathy. 2. E.Coli urinary tract infection. 3. End-stage renal disease on hemodialysis. 4. 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 Phoslo on hold. 5. Renal osteodystrophy. 6. Uncontrolled hypertension. 7. Type 2 diabetes with diabetic nephropathy. Plan: Next HD on Sat. increase labetalol to 300 mg TID. repeat renal panel, CBC in am. Sravani Santos MD Jan 07, 2017 11:44
--- NOTE | 2017-01-07 13:12 | PCM.PNMED ---
Subjective Date of Service Jan 07, 2017 Subjective pt remained very confused, barely oriented to herself had rough night with delirium, drowsy this AM, Exam Vital Signs Vital Sign - Last Date Time Temp Pulse Resp B/P Pulse Ox O2 Delivery O2 Flow Rate FiO2 01/07/17 09:24 36.7 92 20 173/83 97 Room Air Intake and Output 01/06/17 01/06/17 01/07/17 Cumulative From/Thru 15:00 23:00 07:00 01/04/17 16:54 - 01/07/17 06:09 Intake Total 250 ml 100 ml 973 ml Output Total 1000 ml 0 ml 0 ml 1000 ml Balance -1000 ml 250 ml 100 ml -27 ml Intake Oral 120 ml 100 ml 770 ml IV Total 130 ml 203 ml Output Urine Total 0 ml 0 ml 0 ml Ultrafiltrate 1000 ml 1000 ml # Voids 1 # Bowel Movements 0 0 Exam NAD, comfortably laying down on the bed no JVD, MMM, no LAD RRR, nl s1, s2 no mrg Poor inspiratory effort, no w,c S,ND,NT,normoactive BS+ warm,trace edema, pulses 2/2 IVs and Medications Medications Reviewed: Medications were reviewed in detail Lab and Diagnostics Result Diagram: 01/06/1763901/06/17639 Assessment & Plan Ms. Ricardo Leach is a pleasant, yet confused, 76 year old woman with history of ESRD secondary to DM on HD, diabetic retinopathy with resulting blindness, and HTN, that presented to [facility] after completing HD with a three day history of confusion. She was admitted for evaluation and treatment of altered mental status. Hospital day one. acute, active, Acute encephalopathy, POA, likely in the setting of UTI. E.coli+ MDR, ESRD, CTH no acute findings, previous similar episode, possibility of ileus contributing to her sx given no BM>4D -pt still remained confused, not at baseline MS - B12/folate, Mg, phos, thyroid panels -neurocheck qshift, -started aggressive bowel regimen 01/06 despite not much ileus on KUB 01/06 UTI, acute, present on admission. UCX showed E.Coli sens+ ertapenem, cephalosporin but pt is allergic to(unknown reaction). renal US 01/06 unremarkable - History of recurrent UTIs; reported allergy to cephalosporins/cefazolin; patient currently too altered to report reaction - On admit: UA large occult blood, many bacteria, moderate LE, positive nitrite - 07/2014: E. coli resistant to quinolones, and intermediate resistance to piperacillin - Received zosyn in ED - Continue with ertapenem at this time; low cross reactivity with cephalosporins , tolerated during admission 04/2014 - Erta 500mg IV q24 renal dosing given post-HD, briefly discussed with as well. chronic, stable ESRD on HD, chronic. 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 Presumed stable - Home meds continued: amlodipine, clonidine, hydralazine, metoprolol, isosorbide MN - DVT: SCDs - GI: Not indicated - Diet: Heart healthy and consistent carb - PRN: bowel/fever/pain/antiemetics - Code: FULL CODE Patient status: likely 2-3more days, finish at least 5days of Ertapenem then no abx. GI Prophylaxis: Not indicated VTE Prophylaxis: SCDs VTE Mechanical Devices: Intermittant Pneumatic CD Resuscitation Status: CPR: Attempt Resuscitation Time spent 35min Jodi Richards MD Jan 07, 2017 13:12
[2017-01-07] MEDS: Ertapenem Inj 500 MG in 0.9% Sodium Chloride 50 ML IV SCH (15:36)
--- NOTE | 2017-01-07 18:50 | NUR ---
End of shift Patient was dangling at bedside, RN and sitter helped patient back into bed. No s/s of distress, sitter at bedside.
[2017-01-07] MEDS: Insulin GLARgine 100 Unit/mL Syringe SUBQ SCH (22:06)
[2017-01-08] VITALS (7 sets, daily range): BP systolic 122–176; BP diastolic 63–71; PULSE 76–93; RESP 14–18; O2SAT 94–100
[2017-01-08 06:43] LABS: BASOPHILS % (AUTO) 0.3 % (0-3); EOSINOPHILS % (AUTO) 2.2 % (0-5); MONOCYTES % (AUTO) 8.9 % (4-12); Mean Corpuscular Hemoglobin 31.6 pg (27.0-35.0); Mean Corpuscular Volume 99.7 fL (81-100); NEUTROPHILS % (AUTO) 67.3 % (40-74); Platelet Count 182 bil/L (150-400)
[2017-01-08 07:05] LABS: Magnesium 2.4 mg/dL (1.6-2.6); Phosphorus 4.4 mg/dL (2.5-4.9)
[2017-01-08] MEDS: Insulin LISPRO 300 Unit/3 mL Inj SUBQ SCH ×4 (08:00→20:30)
[2017-01-08] MEDS: Polyethylene Glycol (PEG) 17 Gm Powder PO SCH ×2 (08:30→20:17)
--- NOTE | 2017-01-08 09:41 | PCM.PNNEPH ---
Subjective Date of Service Jan 08, 2017 Subjective seen during HD. confused. elevated BP. Exam Vital Signs Vital Sign - Last Date Time Temp Pulse Resp B/P Pulse Ox O2 Delivery O2 Flow Rate FiO2 01/08/17 08:00 85 01/08/17 06:39 37.4 18 176/70 100 Room Air Intake and Output 01/07/17 01/07/17 01/08/17 Cumulative From/Thru 15:00 23:00 07:00 01/04/17 16:54 - 01/08/17 06:32 Intake Total 226 ml 497 ml 1696 ml Output Total 0 ml 0 ml 1000 ml Balance 0 ml 226 ml 497 ml 696 ml Intake Oral 226 ml 497 ml 1493 ml IV Total 203 ml Output Urine Total 0 ml 0 ml 0 ml Ultrafiltrate 1000 ml # Voids 1 2 # Bowel Movements 0 0 0 Exam General appearance: Awake, agitated, disoriented to time, place and person. On restraint. HEENT: Mild pallor. No jaundice. No JVD. No lymphadenopathy. No thyroid enlargement. Atraumatic. Moist mucous membranes. PERRLA. Heart: Regular rhythm. Normal S1, S2. Systolic murmur noted. Abdomen: Soft, active bowel sounds. Nontender. Nondistended. No hepatosplenomegaly. Extremities: No edema, cyanosis or clubbing of the fingers. Left AV fistula with good thrill and bruit. Lab and Diagnostics Result Diagram: 01/08/1761101/08/17611 Plan Impression ASSESSMENT: 1. Altered mental status secondary to metabolic encephalopathy. 2. E.Coli urinary tract infection. 3. End-stage renal disease on hemodialysis. Revaclear, 3 1/2 hr, 2K, 35HCO3, DFR 600, BFR 400, UF 2L, AVF. 4. 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 5. Renal osteodystrophy. 6. Uncontrolled hypertension. 7. Type 2 diabetes with diabetic nephropathy. Plan: Next HD on Tuesday. continue current BP meds. Sravani Santos MD Jan 08, 2017 09:41
--- NOTE | 2017-01-08 12:13 | NUR ---
Dialysis: Patient went to dialysis from [facility] at 0800 . All of her meds were held before dialysis . Patient very sleepy this morning and did not wake up to eat her breakfast. Her blood sugar was 191 this morning.
--- NOTE | 2017-01-08 12:54 | NUR ---
Dialysis note 3.5 hr HD tx. 2 15 g needles to JENNIFER fistula. QB 400 per MD orders. Heparin 1ml bolus only. See DTR for complete vitals. Pt hypertensive thru tx. Off BP 199/111 HR 84. Pt varying between somnolence and agitation, attempts to reorient then pt would start crying, then return to sleep. Sureseals/clamps X 10 mins post tx and report given to primary RN, pt returned to floor stable.
[2017-01-08] MEDS: Ertapenem Inj 500 MG in 0.9% Sodium Chloride 50 ML IV SCH (13:55)
[2017-01-08] MEDS: Isosorbide Mononitrate 30 mg ER24 Tablet PO SCH (14:00)
--- NOTE | 2017-01-08 14:30 | PCM.PNMED ---
Subjective Date of Service Jan 08, 2017 Subjective pt still remained confused, seen during HD, alert and looked comfortable, denied pain Exam Vital Signs Vital Sign - Last Date Time Temp Pulse Resp B/P Pulse Ox O2 Delivery O2 Flow Rate FiO2 01/08/17 13:46 36.8 85 18 163/71 96 Room Air Intake and Output 01/07/17 01/07/17 01/08/17 Cumulative From/Thru 15:00 23:00 07:00 01/04/17 16:54 - 01/08/17 06:32 Intake Total 226 ml 497 ml 1696 ml Output Total 0 ml 0 ml 1000 ml Balance 0 ml 226 ml 497 ml 696 ml Intake Oral 226 ml 497 ml 1493 ml IV Total 203 ml Output Urine Total 0 ml 0 ml 0 ml Ultrafiltrate 1000 ml # Voids 1 2 # Bowel Movements 0 0 0 Exam NAD, comfortably laying down on the bed no JVD, MMM, no LAD RRR, nl s1, s2 no mrg Poor inspiratory effort, no w,c S,ND,NT,normoactive BS+ warm,trace edema, pulses 2/2 IVs and Medications Medications Reviewed: Medications were reviewed in detail Lab and Diagnostics Result Diagram: 01/08/1761101/08/17611 Assessment & Plan Ms. Ricardo Leach is a pleasant, yet confused, 76 year old woman with history of ESRD secondary to DM on HD, diabetic retinopathy with resulting blindness, and HTN, that presented to [facility] after completing HD with a three day history of confusion. She was admitted for evaluation and treatment of altered mental status. Hospital day one. acute, active, Acute encephalopathy, POA, likely in the setting of UTI. E.coli+ MDR, ESRD, CTH no acute findings, previous similar episode, possibility of ileus contributing to her sx given no BM>4D -pt still remained confused, not at baseline MS - B12/folate, Mg, phos, thyroid panels -neurocheck qshift, -started aggressive bowel regimen 01/06 despite not much ileus on KUB 01/06 UTI, acute, present on admission. UCX showed E.Coli sens+ ertapenem, cephalosporin but pt is allergic to(unknown reaction). renal US 01/06 unremarkable - History of recurrent UTIs; reported allergy to cephalosporins/cefazolin; patient currently too altered to report reaction - On admit: UA large occult blood, many bacteria, moderate LE, positive nitrite - 07/2014: E. coli resistant to quinolones, and intermediate resistance to piperacillin - Received zosyn in ED - Continue with ertapenem at this time; low cross reactivity with cephalosporins , tolerated during admission 04/2014 - Erta 500mg IV q24 renal dosing given post-HD, briefly discussed with as well. chronic, stable ESRD on HD, chronic. 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 Presumed stable - Home meds continued: amlodipine, clonidine, hydralazine, metoprolol, isosorbide MN - DVT: SCDs - GI: Not indicated - Diet: Heart healthy and consistent carb - PRN: bowel/fever/pain/antiemetics - Code: FULL CODE Patient status: likely 2-3more days, finish at least 5days of Ertapenem then no abx. GI Prophylaxis: Not indicated VTE Prophylaxis: SCDs VTE Mechanical Devices: Intermittant Pneumatic CD Resuscitation Status: CPR: Attempt Resuscitation Time spent 35min Jodi Richards MD Jan 08, 2017 14:30
[2017-01-08] MEDS: Insulin GLARgine 100 Unit/mL Syringe SUBQ SCH (20:24)
[2017-01-09] VITALS (8 sets, daily range): BP systolic 109–153; BP diastolic 52–67; PULSE 70–93; RESP 16–18; O2SAT 95–98
--- NOTE | 2017-01-09 05:58 | NUR ---
Behavior Pt remains confused. Family spent the night and states pt is oriented to herself and birthdate but not to year or place. Not able to recognize family member. Pt had nightmare during the night and was screaming but able to be calmed by family member.
[2017-01-09 06:35] LABS: BASOPHILS % (AUTO) 0.6 % (0-3); EOSINOPHILS % (AUTO) 3.3 % (0-5); Mean Corpuscular Hemoglobin 32.2 pg (27.0-35.0); Mean Corpuscular Volume 100.7 fL (81-100); NEUTROPHILS % (AUTO) 60.3 % (40-74); Platelet Count 185 bil/L (150-400)
[2017-01-09 06:59] LABS: Magnesium 2.2 mg/dL (1.6-2.6); Phosphorus 4.1 mg/dL (2.5-4.9)
[2017-01-09] MEDS: Ertapenem Inj 500 MG in 0.9% Sodium Chloride 50 ML IV SCH (10:00)
[2017-01-09] MEDS: Isosorbide Mononitrate 30 mg ER24 Tablet PO SCH (10:02)
[2017-01-09] MEDS: Insulin LISPRO 300 Unit/3 mL Inj SUBQ SCH ×4 (10:30→21:51)
--- NOTE | 2017-01-09 11:29 | PCM.PNMED ---
Subjective Date of Service Jan 09, 2017 Subjective Patient will still remain very confused, only oriented to herself Is able to recognize her family member at the bedside As per son, patient did exact same thing in the past when she had a UTI It took a few weeks for her to get her dental status back to normal Patient denied neck pain, mainly alert but not oriented Denied any pain anywhere Exam Vital Signs Vital Sign - Last Date Time Temp Pulse Resp B/P Pulse Ox O2 Delivery O2 Flow Rate FiO2 01/09/17 11:21 70 01/09/17 09:36 36.4 18 137/65 95 Room Air Intake and Output 01/08/17 01/08/17 01/09/17 Cumulative From/Thru 15:00 23:00 07:00 01/04/17 16:54 - 01/09/17 06:13 Intake Total 480 ml 200 ml 2376 ml Output Total 2000 ml 3000 ml Balance -2000 ml 480 ml 200 ml -624 ml Intake Oral 480 ml 200 ml 2173 ml IV Total 203 ml Output Urine Total 0 ml Ultrafiltrate 2000 ml 3000 ml # Voids 0 0 2 # Bowel Movements 0 0 Exam NAD, comfortably laying down on the bed no JVD, MMM, no LAD RRR, nl s1, s2 no mrg Poor inspiratory effort, no w,c S,ND,NT,normoactive BS+ warm,trace edema, pulses 2/2 IVs and Medications Medications Reviewed: Medications were reviewed in detail Lab and Diagnostics Result Diagram: 01/09/17 0600 01/09/17 0600 Assessment & Plan Ms. Ricardo Leach is a pleasant, yet confused, 76 year old woman with history of ESRD secondary to DM on HD, diabetic retinopathy with resulting blindness, and HTN, that presented to [facility] after completing HD with a three day history of confusion. She was admitted for evaluation and treatment of altered mental status. Hospital day one. acute, active, Acute encephalopathy, POA, likely in the setting of UTI. E.coli+ MDR, ESRD, CTH no acute findings, previous similar episode, possibility of ileus contributing to her sx given no BM>4D. B12/folate, Mg, phos, thyroid all WNL -pt still remained confused, not at baseline MS, expect slow recovery as per Son -neurocheck qshift, -started aggressive bowel regimen 01/06 despite not much ileus on KUB 01/06 UTI, acute, present on admission. UCX showed E.Coli sens+ ertapenem, cephalosporin but pt is allergic to(unknown reaction). renal US 01/06 unremarkable - History of recurrent UTIs; reported allergy to cephalosporins/cefazolin; patient currently too altered to report reaction - On admit: UA large occult blood, many bacteria, moderate LE, positive nitrite - 07/2014: E. coli resistant to quinolones, and intermediate resistance to piperacillin - Received zosyn in ED, switched to Ertapenem 500mg IV q24 renal dosing given post-HD, briefly discussed with , agreed on plan, day#4 today. will likely finish 7-10days course as oral agent is limited given her allergy to Cephalosporin. chronic, stable ESRD on HD, chronic. 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 Presumed stable - Home meds continued: amlodipine, clonidine, hydralazine, metoprolol, isosorbide MN - DVT: SCDs - GI: Not indicated - Diet: Heart healthy and consistent carb - PRN: bowel/fever/pain/antiemetics - Code: FULL CODE Patient status: likely 2-3more days, based on daily assessment of neurologic status GI Prophylaxis: Not indicated VTE Prophylaxis: SCDs VTE Mechanical Devices: Intermittant Pneumatic CD Resuscitation Status: CPR: Attempt Resuscitation Time spent 35min Jodi Richards MD Jan 09, 2017 11:29
[2017-01-09] MEDS: Polyethylene Glycol (PEG) 17 Gm Powder PO SCH ×2 (13:49→21:03)
--- NOTE | 2017-01-09 16:24 | NUR ---
Social Work: Brief note: Data & Assessment: Patient is a 76 y/o Thai speaking female on her fifth day of hospitalization. EMR reviewed. Patient admitted for UTI and AMS per H&P. per attending physician patient is likely to be in the hospital 2-3 more days, based on daily assessment of neurologic status. Currently PT is recommending SNF, but patient's insurance will not cover. Patient is likely to discharge home with family. SW will continue to follow and assist patient throughout stay. Plan: Patient is likely to discharge home with family. SW will continue to follow and assist patient with discharge planning. Ellie Wolff, BERE, ACM
--- NOTE | 2017-01-09 18:59 | NUR ---
Activity: Patient has been very restful today. She needed to be woke up to eat her meals and change her brief. She has had family members in her room for most of the day. She appears to be in good spirits and has been calm and cooperative with care.
[2017-01-09] MEDS: Insulin GLARgine 100 Unit/mL Syringe SUBQ SCH (21:00)
[2017-01-10] VITALS (7 sets, daily range): BP systolic 115–184; BP diastolic 62–77; PULSE 71–92; RESP 16–18; O2SAT 94–96
--- NOTE | 2017-01-10 02:48 | NUR ---
confusion/restlessness pt has been restless this shift. she was calm and cooperative until her son left but then became restless and was attempting to get out of bed. an bus and trolley dispatcher was used to try and reorient pt but the bus and trolley dispatcher stated her answer did not make sense. unable to reorient. pt brief was checked and staff found that pt had been incontinent of stool. she was changed and became calmer. pt sons were called to see if someone in the family could come in and sit with her but there is no response at this time. pt is calm at this time and not trying to self transfer. will continue hourly rounding, bed alarm is on. care continues.
[2017-01-10 06:22] LABS: BASOPHILS % (AUTO) 0.4 % (0-3); EOSINOPHILS % (AUTO) 3.1 % (0-5); MONOCYTES % (AUTO) 8.6 % (4-12); Mean Corpuscular Hemoglobin 32.1 pg (27.0-35.0); Mean Corpuscular Volume 100.2 fL (81-100); NEUTROPHILS % (AUTO) 65.7 % (40-74); Platelet Count 178 bil/L (150-400)
[2017-01-10 06:38] LABS: Magnesium 2.6 mg/dL (1.6-2.6); Phosphorus 5.4 mg/dL (2.5-4.9)
[2017-01-10] MEDS: Polyethylene Glycol (PEG) 17 Gm Powder PO SCH ×2 (09:24→20:40)
[2017-01-10] MEDS: Isosorbide Mononitrate 30 mg ER24 Tablet PO SCH (09:25)
[2017-01-10] MEDS: Insulin LISPRO 300 Unit/3 mL Inj SUBQ SCH ×4 (09:30→21:33)
[2017-01-10] MEDS: Ertapenem Inj 500 MG in 0.9% Sodium Chloride 50 ML IV SCH (09:34)
--- NOTE | 2017-01-10 13:54 | NUR ---
SW - Continued discharge planning Data: Pt is on day 6 of hospitalization for UTI, AMS, CRF. Per morning rounds pt is likley to discharge in 1-2 days. PT has assessed zuleima pt and is recommending SNF. The pt's insurance will not cover. SW contacted jasmin Mccollum [phone] to discuss options. He stated the family is unable to pay out of pocket for SNF and family will be able to assist the pt at home. "That's what we have done before". SW checked in re: PCP and son confirm pt is connected with [facility]. SW provided contact info should the family need additional support planning. Pt likely to discharge home with assistance from family via POV. SW will continue to follow. Assessment: Pt who would benefit from SNF. Plan: Pt to discharge home with assistance from family via POV. SW will continue to follow for needs. PIETER Munoz
--- NOTE | 2017-01-10 14:31 | PCM.PNNEPH ---
Subjective Date of Service Jan 10, 2017 Subjective sleeping, arousable, disoriented. labile BP, last HD on Tuesday. Exam Vital Signs Vital Sign - Last Date Time Temp Pulse Resp B/P Pulse Ox O2 Delivery O2 Flow Rate FiO2 01/10/17 09:40 90 01/10/17 09:32 36.7 18 184/77 96 Room Air Intake and Output 01/09/17 01/09/17 01/10/17 Cumulative From/Thru 15:00 23:00 07:00 01/04/17 16:54 - 01/10/17 06:23 Intake Total 220 ml 200 ml 2796 ml Output Total 1 ml 3001 ml Balance 220 ml 199 ml -205 ml Intake Oral 220 ml 200 ml 2593 ml IV Total 203 ml Output Urine Total 1 ml 1 ml Ultrafiltrate 3000 ml # Voids 0 2 # Bowel Movements 0 Exam General appearance: sleeping, arousable, disoriented to time and place. HEENT: Mild pallor. No jaundice. No JVD. No lymphadenopathy. No thyroid enlargement. Atraumatic. Moist mucous membranes. PERRLA. Heart: Regular rhythm. Normal S1, S2. Systolic murmur noted. Abdomen: Soft, active bowel sounds. Nontender. Nondistended. No hepatosplenomegaly. Extremities: No edema, cyanosis or clubbing of the fingers. Left AV fistula with good thrill and bruit. Lab and Diagnostics Result Diagram: 01/10/1760401/10/17604 Plan Impression 1. Altered mental status secondary to metabolic encephalopathy. 2. E.Coli urinary tract infection. 3. End-stage renal disease on hemodialysis Q TTS. 4. 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 5. Renal osteodystrophy. 6. Uncontrolled hypertension. 7. Type 2 diabetes with diabetic nephropathy. 8. Acquired renal cysts. Plan: Increase losartan to 100 mg daily. Next HD on Tuesday. Continue Sensipar. Perform in and out cath x1. Repeat UA. Sravani Santos MD Jan 10, 2017 14:31
[2017-01-10 17:55] LABS: APPEARANCE,URINE CLOUDY (CLEAR,HAZY); COLOR,URINE DARK YELLOW (YELLOW); OCCULT BLOOD,URINE LARGE (NEGATIVE); PH,URINE 8.5 (5.0-8.0); UROBILINOGEN,URINE NORMAL (NORMAL)
--- NOTE | 2017-01-10 18:25 | NUR ---
Dayshift No family in room to provide support. Providing care with frequent rounding to meet pt needs. Pt Turkish speaking with no teeth, blind and confusion. Will talk into the air on occasion and difficult to make sense when questioned. Stick and interpreting services could communicate with pt. With my limited Turkish, was able to ask easy questions for assessment and able to direct pt. Appears pt is able to comprehend and make reasonable responses. Pt reports occasional minor pain in back. Given PRN tylenol. Pt able to tolerate Soft food and meds crushed in pudding. 1:1 feed. Brief changes performed during shift. Pt had small/hard BM smear. UA ordered via straight cath by . Bladder scanned 79mL prior to cath. Able to obtain about 10mL for specimen. Urine is dark, cloudy, yellow brownish color.
--- NOTE | 2017-01-10 20:17 | PCM.PNMED ---
Subjective Date of Service Jan 10, 2017 Subjective patient remains confused and mumbles,UA shows persistent pyuria ,afebrile Exam Vital Signs Vital Sign - Last Date Time Temp Pulse Resp B/P Pulse Ox O2 Delivery O2 Flow Rate FiO2 01/10/17 16:24 36.8 77 18 130/64 95 Room Air Intake and Output 01/09/17 01/09/17 01/10/17 Cumulative From/Thru 15:00 23:00 07:00 01/04/17 16:54 - 01/10/17 06:23 Intake Total 220 ml 200 ml 2796 ml Output Total 1 ml 3001 ml Balance 220 ml 199 ml -205 ml Intake Oral 220 ml 200 ml 2593 ml IV Total 203 ml Output Urine Total 1 ml 1 ml Ultrafiltrate 3000 ml # Voids 0 2 # Bowel Movements 0 Exam NAD, comfortably laying down on the bed,somnolent and mumbles no JVD, MMM, no LAD RRR, nl s1, s2 no mrg clear chest , no w,c S,ND,NT,normoactive BS+ warm,trace edema, pulses 2/2 IVs and Medications Medications Reviewed: Medications were reviewed in detail Lab and Diagnostics Result Diagram: 01/10/1760401/10/17604 X-Rays, CTs and MRIs PROCEDURE: US RENAL SONOGRAM INDICATIONS: UTI IMPRESSION: 1. Multicystic appearance of the kidneys bilaterally similar to previous CT scan and no definite hydronephrosis is seen. 2. Right renal cortical thinning. 3. Left kidney is suboptimally visualized. Dictated by: Zhou Lino RRA Interpreted: Ramone Moore MD on 01/06/2017 at 14:15 Assessment & Plan Ms. Ricardo Leach is a pleasant, yet confused, 76 year old woman with history of ESRD secondary to DM on HD, diabetic retinopathy with resulting blindness, and HTN, that presented to [facility] after completing HD with a three day history of confusion. She was admitted for evaluation and treatment of altered mental status. Hospital day one. acute, active, # Acute encephalopathy, POA, likely in the setting of UTI. E.coli+ MDR, ESRD, CTH no acute findings, previous similar episode, possibility of ileus contributing to her sx given no BM>4D. B12/folate, Mg, phos, thyroid all WNL -pt still remained confused, not at baseline MS, expect slow recovery as per Son -neurocheck qshift, -started aggressive bowel regimen 01/06 despite not much ileus on KUB 01/06 -UA with persistent pyuria,ucx sent # UTI, acute, present on admission. UCX showed E.Coli sens+ ertapenem, cephalosporin but pt is allergic to(unknown reaction). renal US 01/06 unremarkable - History of recurrent UTIs; reported allergy to cephalosporins/cefazolin; patient currently too altered to report reaction - On admit: UA large occult blood, many bacteria, moderate LE, positive nitrite - 07/2014: E. coli resistant to quinolones, and intermediate resistance to piperacillin - Received zosyn in ED, switched to Ertapenem 500mg IV q24 renal dosing given post-HD,Dr Richards briefly discussed with , agreed on plan, day#5 today. will likely finish 7-10days course as oral agent is limited given her allergy to Cephalosporin. chronic, stable # ESRD on HD, chronic. 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 Presumed stable - Home meds continued: amlodipine, clonidine, hydralazine, metoprolol, isosorbide MN -increased losartan to 100mg daily # hypercalcemia due to tertiary hyperparathyroidism -ca 10.3,PTH 204 - DVT: SCDs - GI: Not indicated - Diet: Heart healthy and consistent carb - PRN: bowel/fever/pain/antiemetics - Code: FULL CODE Patient status: likely 1-2 more days, based on daily assessment of neurologic status GI Prophylaxis: Not indicated VTE Prophylaxis: SCDs VTE Mechanical Devices: Intermittant Pneumatic CD Resuscitation Status: CPR: Attempt Resuscitation Dejon Mao MD Jan 10, 2017 20:17
[2017-01-10] MEDS: Insulin GLARgine 100 Unit/mL Syringe SUBQ SCH (20:29)
[2017-01-11 00:35] VITALS: BP 120/52; PULSE 70; RESP 16; O2SAT 97
[2017-01-11 04:30] VITALS: BP 116/53; PULSE 69; RESP 16; O2SAT 97
--- NOTE | 2017-01-11 06:01 | NUR ---
NOC PT has slept very well all night. V/S WNL. Afebrile. Per family, pt is still confused, but mentation is improving. PT has been cooperative with care. We have been turning her every 2 hours because there is an open area on her coccyx that this RN applied duoderm to. PT anuric. Had 1 BM on BSC. PT is a 2 person assist to commode. Her gait is tremulous and unsteady due to her fear of falling and impaired vision. ONly c/o pain is in her back when being repositioned, otherwise pt has denied pain. PT took all her meds whole without difficulty. BG at HS was 190 and did not require any s/s coverage.H/L in R hand patent. Dressing to dialysis port is c/d/i.
[2017-01-11] MEDS: Insulin LISPRO 300 Unit/3 mL Inj SUBQ SCH ×2 (07:48→12:00)
[2017-01-11] MEDS: Polyethylene Glycol (PEG) 17 Gm Powder PO SCH (08:30)
--- NOTE | 2017-01-11 08:30 | NUR ---
Dialysis Report given to SUKHJINDER Ty in MOC. Pt taken via bed at 0830, meds with chart, tele notified. No s/sx of distress.
--- NOTE | 2017-01-11 09:08 | PCM.PNNEPH ---
Subjective Date of Service Jan 11, 2017 Subjective The patient was seen and examined and chart was reviewed. The patient has a history of end-stage renal disease secondary to diabetes and hypertension. She normally dialyzes 3 days a week on Tuesday and Tuesday. She was admitted for pyelonephritis which subsequently grew out Escherichia coli. She has had very little oral intake over the last several days and according to the dialysis nurse who knows her states that she is significantly obtunded and confused. Exam Vital Signs Vital Sign - Last Date Time Temp Pulse Resp B/P Pulse Ox O2 Delivery O2 Flow Rate FiO2 01/11/17 04:30 37.1 69 16 116/53 97 Room Air Intake and Output 01/10/17 01/10/17 01/11/17 Cumulative From/Thru 15:00 23:00 07:00 01/04/17 16:54 - 01/11/17 06:29 Intake Total 300 ml 400 ml 3496 ml Output Total 0 ml 3001 ml Balance 300 ml 400 ml 495 ml Intake Oral 200 ml 400 ml 3193 ml IV Total 100 ml 303 ml Output Urine Total 0 ml 1 ml Ultrafiltrate 3000 ml # Voids 2 # Bowel Movements 1 1 Exam Neck is supple without adenopathy, thyromegaly, or jugular venous distention. Lungs are clear to auscultation. Heart was regular and rhythmical with a soft systolic murmur. Abdomen is soft with diminished bowel sounds and mild distention. There is no tenderness or rebound guarding masses or hepatosplenomegaly. Extremities do not show any evidence of any clubbing, cyanosis, or edema. Skin turgor is diminished. Lab and Diagnostics Result Diagram: 01/10/1760401/10/17 06 X-Rays, CTs and MRIs PROCEDURE: US RENAL SONOGRAM INDICATIONS: UTI IMPRESSION: 1. Multicystic appearance of the kidneys bilaterally similar to previous CT scan and no definite hydronephrosis is seen. 2. Right renal cortical thinning. 3. Left kidney is suboptimally visualized. Dictated by: Zhou JIMENEZ Interpreted: Ramone Moore MD on 01/06/2017 at 14:15 Plan Impression Impression #1 end-stage renal disease dialysis dependent number to diabetic nephropathy #3 hypertension. Hypertensive heart disease and hypertensive nephrosclerosis number for pyelonephritis with Escherichia coli Recommendations #1 patient is dialyzed today for 3-1/2 hours on a clear dialyzed , 2 potassium bath, 400 blood flow, 35 bicarbonate, and 1000 bolus of heparin. We will not take any fluid off today as I do not feel that the patient is volume overloaded. I will as a nurse to give her 500 and also saline. Alex Beltran DO Jan 11, 2017 09:08
[2017-01-11 10:18] VITALS: PULSE 72
--- NOTE | 2017-01-11 12:48 | NUR ---
Dialysis note Stable 3.5 hr HD tx. No UF removed. NS 500ml bolus given per Dr. Beltran. 2 15 g needles to JENNIFER fistula. QB 400. Pt intermittently transfers between somulence and agitation, occasionally crying. BG was 85 at lunch time and she did drink apple juice successfully. See DTR for complete vitals data. Sureseals/clamps X15 mins post tx. Report given and pt returned to floor stable.
[2017-01-11] MEDS ORDERED: levoFLOXacin 250 mg Tablet PO SCH ×2 (13:10→14:05)
--- NOTE | 2017-01-11 13:13 | PCM.DIMED ---
Discharge Instructions Date of Service Jan 11, 2017 Dates of Hospitalization Jan 04, 2017 at 19:36 Discharge Diagnosis Discharge Diagnosis # Acute encephalopathy, POA, likely in the setting of UTI. E.coli+ MDR, # UTI, acute, present on admission. UCX showed E.Coli sens+ ertapenem, chronic, stable # ESRD on HD, chronic. 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 You has been treated with IV antibiotics. Please continue Levaquin 250 mg by mouth on dialysis days after dialysis for 2 more doses. Please follow-up with PCP in 1 week. Follow-up plan Please follow-up with PCP in 1 week. Follow-up Provider: Tierney Clifton MD Follow-up with PCP in: 1 week Dejon Mao MD Jan 11, 2017 13:13
[2017-01-11] MEDS ORDERED: LABE200T PO (13:17)
[2017-01-11] MEDS ORDERED: LOSA25TA2 PO (13:17)
[2017-01-11] MEDS ORDERED: LVF250T PO (13:17)
[2017-01-11 13:23] VITALS: BP 178/71; PULSE 89; RESP 16; O2SAT 95
[2017-01-11] MEDS ORDERED: CEPH-511 PO (14:14)
[2017-01-11] MEDS: Isosorbide Mononitrate 30 mg ER24 Tablet PO SCH (14:25)
--- NOTE | 2017-01-11 15:51 | NUR ---
SW - Readiness for Discharge Data: Pt is on day 6 of hospitalization for UTI, AMS, CRF. Per morning rounds pt is likley to discharge tomorrow PT has assessed the pt and is recommending SNF. The pt's insurance will not cover. Family has agreed to provide care at home. Per jasmin Mccollum [phone] has been contacted and informed of likely discharge tomorrow and is agreeable to plan. Son's girlfriend will provide transport home via POV. SW will continue to follow. Assessment: Pt who would benefit from SNF. Plan: Pt to discharge home with assistance from family via POV. SW will continue to follow for needs. PIETER Munoz
--- NOTE | 2017-01-11 17:34 | NUR ---
Discharge Reviewed discharge paperwork, care notes and medications with sons (Chun) - pt is blind, confused and only speaks Persian. Chun signed disclaimer. IV DCd intact, tele removed, all belongings with pt. No s/sx of distress. Pt taken curbside in WC, sons driving home.
--- NOTE | 2017-01-11 20:01 | PCM.DC.MED ---
Discharge Summary Date of Service Jan 11, 2017 Dates of Hospitalization Date of Hospital Admission Jan 04, 2017 at 19:36 Date of Discharge: Jan 11, 2017 Providers: Admitting Physician: Herlinda Mehta DO Primary Care Physician: Anuj Attending Physician: Herlinda Mehta DO Diagnosis at Time of Discharge Diagnosis at Time of Discharge # Acute encephalopathy, POA, likely in the setting of UTI. E.coli+ MDR, # UTI, acute, present on admission. UCX showed E.Coli sens+ ertapenem, chronic, stable # ESRD on HD, chronic. 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 Multicystic appearance of the kidneys bilaterally similar to previous CT scan and no definite hydronephrosis is seen. 2. Right renal cortical thinning. 3. Left kidney is suboptimally visualized. Dictated by: Zhou Lino RRA Interpreted: Ramone Moore MD on 01/06/2017 at 14:15 Brief History per HPI Ms. Ricardo Leach is a pleasant, yet confused, 76 year old woman with history of ESRD secondary to DM on HD, diabetic retinopathy with resulting blindness, and HTN, that presented to [facility] after completing HD with a three day history of confusion. She was admitted for evaluation and treatment of altered mental status. Hospital day one. Ms. Ricardo Leach is a woman that lives locally with her son, and completes HD every //Tuesday with Drs. Clifton and Bud following. Her son is present, and provided the majority of the history, as the patient is currently an unreliable historian secondary to AMS. She states that she is currently located in a "small house," and cannot state what year it is, and simply says "i don't know," and cannot provide a guess. She does not recall events earlier in the day. Her son shares that she has been confused over the recent three days leading to admission. No recent history of GLF, but son does report she fell in the shower a few weeks ago and injured her back. No medical care was sought at that time, and he denies any head injury. She is compliant with her HD. No recent medication changes, missed dosings, or changes in routine. Denies associated fever, chills, nausea, vomiting. Admits to associated abdominal discomfort and bloating sensation and constipation, back pain. She does not make large amounts of urine, but son reports she still has small amounts urine output. Denies any recent sick contacts. Admits to history of similar symptoms with resolution. She and son state that she 'wants to live,' and this was confirmed by both son and patient. Son states that he understands the risks associated with CPR/ intubation, and agrees to proceed with full code status. Hospital Course Ms. Ricardo Leach is a pleasant, yet confused, 76 year old woman with history of ESRD secondary to DM on HD, diabetic retinopathy with resulting blindness, and HTN, that presented to [facility] after completing HD with a three day history of confusion. She was admitted for evaluation and treatment of altered mental status. Hospital day one. acute, active, # Acute encephalopathy, POA, likely in the setting of UTI. E.coli+ MDR, ESRD, CTH no acute findings, previous similar episode, possibility of ileus contributing to her sx given no BM>4D. B12/folate, Mg, phos, thyroid all WNL -pt still initially remained confused, now at baseline MS, expect slow recovery as per Son -UA with persistent pyuria,ucx repeat 01/10 no growth # UTI, acute, present on admission. UCX showed E.Coli sens+ ertapenem, cephalosporin but pt is allergic to(unknown reaction). renal US 01/06 unremarkable - History of recurrent UTIs; reported allergy to cephalosporins/cefazolin; tolerated keflex on day of discharge and discharged on keflex for 3 more days - On admit: UA large occult blood, many bacteria, moderate LE, positive nitrite - 07/2014: E. coli resistant to quinolones, and intermediate resistance to piperacillin - Received zosyn in ED, switched to Ertapenem 500mg IV q24 renal dosing given post-HD,Dr Richards briefly discussed with , agreed on plan, discharged on keflex for 3 more days chronic, stable # ESRD on HD, chronic. 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 -ca 10.3,PTH 204 - Code: FULL CODE discharged home.updated Son Chun.advised to follow up with Dr Clifton closely for further adjustment of BP meds Exam Vital Signs (Last) Date Time Temp Pulse Resp B/P Pulse Ox O2 Delivery O2 Flow Rate FiO2 01/11/17 13:23 36.6 89 16 178/71 95 Room Air Exam NAD, comfortably laying down on the bed,more alert and coherent per saxophone assembler no JVD, MMM, no LAD RRR, nl s1, s2 no mrg clear chest , no w,c S,ND,NT,normoactive BS+ warm,trace edema, pulses 2/2 Test 01/04/17 18:09 01/05/17 07:54 01/08/17 06:12 01/10/17 06:05 Lipase 66U/L (13-60) Hemoglobin A1c 6.2% (4.8-5.6) Lactic Acid Level 0.8mmol/L (0.4-2.0) Vitamin B12 Level 543pg/mL (211-946) Folate > 19.9ng/mL (>3.0) Procalcitonin 0.23ng/mL (0.00-0.08) Thyroid Stimulating Hormone (TSH) 3.150uIU/mL (0.450-4.500) Free Thyroxine 1.65ng/dL (0.82-1.77) Parathyroid Hormone (Intact) 204pg/mL (15-65) White Blood Count 9.6th/mm3 (3.8-10.1) Red Blood Count 4.05mil/mm3 (3.90-5.20) Hemoglobin 13.0g/dL (12.0-15.6) Hematocrit 40.6% (35.0-46.0) Mean Corpuscular Volume 100.2fL (81-100) Mean Corpuscular Hemoglobin 32.1pg (27.0-35.0) Mean Corpuscular Hemoglobin Concent 32.0% (32.0-37.0) Red Cell Distribution Width 14.7% (12.3-15.4) Platelet Count 178bil/L (150-400) Neutrophils (%) (Auto) 65.7% (40-74) Lymphocytes (%) (Auto) 22.0% (14-46) Monocytes (%) (Auto) 8.6% (4-12) Eosinophils (%) (Auto) 3.1% (0-5) Basophils (%) (Auto) 0.4% (0-3) Sodium Level 137mEq/L (134-144) Potassium Level 5.2mEq/L (3.5-5.2) Chloride Level 92mEq/L (97-108) Carbon Dioxide Level 26mmol/L (18-29) Blood Urea Nitrogen 41mg/dL (8-27) Creatinine 6.60mg/dL (0.57-1.00) Estimat Glomerular Filtration Rate 9mL/min (>59) Glucose Level 177mg/dL (60-99) Calcium Level 10.3mg/dL (8.5-10.1) Phosphorus Level 5.4mg/dL (2.5-4.9) Magnesium Level 2.6mg/dL (1.6-2.6) Total Bilirubin 0.3mg/dL (0.0-1.2) Aspartate Amino Transf (AST/SGOT) 19U/L (0-50) Alanine Aminotransferase (ALT/SGPT) 5U/L (0-32) Alkaline Phosphatase 113U/L (25-165) Total Protein 6.9g/dL (6.4-8.4) Albumin 4.2g/dL (3.4-5.0) Test 01/10/17 16:50 Urine Color Dark yellow (YELLOW) Urine Appearance Cloudy (CLEAR,HAZY) Urine pH 8.5 (5.0-8.0) Urine Specific [place] 1.030 (1.003-1.035) Urine Protein 300mg/dL (NEG,TRACE) Urine Glucose (UA) Negativemg/dL (NEGATIVE) Urine Ketones Negativemg/dL (NEGATIVE) Urine Occult Blood Large (NEGATIVE) Urine Nitrite Negative (NEGATIVE) Urine Bilirubin Negative (NEGATIVE) Urine Urobilinogen Normalmg/dL (NORMAL) Urine Leukocyte Esterase Large (NEGATIVE) Urine RBC 11-50/hpf (0-2) Urine WBC Packed/hpf (0-5) Urine Epithelial Cells Few/hpf (NONE-MOD) Urine Crystals None seen (NONE SEEN) Urine Bacteria Many/hpf (NONE-FEW) Urine Hyaline Casts None/lpf (NONE) Urine Granular Casts None seen (NONE SEEN) Urine Waxy Casts None seen (NONE SEEN) Urine Red Blood Cell Casts None seen (NONE SEEN) Urine White Blood Cell Casts None seen (NONE SEEN) Urine Mucus None seen (None Seen) Urine Trichomonas None seen (NONE SEEN) Urine Yeast None (NONE SEEN) Urinalysis Comment None Urine Culture Reflexed Indicated Discharge Medications Discharge Medications Amlodipine (Amlodipine) 10 Mg Tablet 10 MG PO QAM (Reported) Aspirin (Aspirin) 325 Mg Tablet.dr 325 MG PO QAM (Reported) Calcium Acetate (Calcium Acetate) 667 Mg Capsule 667 MG PO TIDWM (Reported) Cephalexin (Keflex) 250 Mg Capsule 250 MG PO TID Prescribed by: RAGHAVENDRA PINTO MD Ciclopirox Olamine (Ciclopirox) 15 Gm Cream..g. 1 APPLIC TP BID (Reported) Cinacalcet HCl (Sensipar) 90 Mg Tablet 90 MG PO QAM (Reported) Clonidine 0.2 mg/day Patch (Catapres TTS-2) 1 Each Patch 1 PATCH TRANSDERM WEEKLY (Reported) Erythromycin Ophth Oint (Erythromycin Ophth Oint) 3.5 Gm Oint...g. 1 APPL TOPICAL BID (Reported) APPLY TO TOES FOR INFECTION Folic Acid (Folic Acid) 1 Mg Tablet 5 MG PO DAILY Prescribed by: TONY ROD MD Hydralazine (Hydralazine) 50 Mg Tablet 50 MG PO TID (Reported) Insulin Glargine (Lantus U100 Solostar Insulin Pen) 100 Unit/1 Ml Insuln.pen 5- 10 UNIT SUBQ HS (Reported) Insulin Lispro (HumaLOG U100 Insulin Pen) 100 Unit/1 Ml Insuln.pen 1-12 UNITS SUBQ TID-INSULIN (Reported) Blood Sugar Lispro Correction <151 0 units 151-175 1 unit 176-200 2 units 201-225 3 units 226-250 4 units 251-275 5 units 276-300 6 units 301-325 7 units 326-350 8 units 351-375 9 units 376-400 10 units >400 12 units Check blood sugars before meals and at bedtime. Use correction factor only before meals. Isosorbide MN ER (Isosorbide MN ER) 120 Mg Tab.er.24h 120 MG PO QAM (Reported) Labetalol (Labetalol) 200 Mg Tablet 200 MG PO TID Prescribed by: RAGHAVENDRA PINTO MD Metoprolol Tartrate (Metoprolol Tartrate) 50 Mg Tablet 50 MG PO BID (Reported) Multivitamin, Min Cmb#25/FA/D3 (Dialyvite [place] D Tablet) 1 Each Tablet 1 EACH PO QAM (Reported) Sevelamer Carbonate (Renvela) 800 Mg Tablet 800 MG PO TIDWM (Reported) WITH MEALS AND SNACKS Followup Plan Disposition: home Follow-up plan Please follow-up with PCP in 1 week. Discharge Diet: Renal Diet Discharge Activity: Limited until seen by PCP Patient Instructions You were hospitalized due to altered mental status due to UTI. You has been treated with IV antibiotics. Please continue Levaquin 250 mg by mouth on dialysis days after dialysis for 2 more doses. Please follow-up with PCP in 1 week. Follow-up Provider: Tierney Clifton MD Follow-up with PCP in: 1 week Time spent 40 minutes copies to: Tierney Clifton MD, Melaku MD Jan 11, 2017 20:01
== END 2017-01-11 17:24 | disposition home or self-care (01) | DRG 689 ==
LOC: SED 16:43 → MPC 19:36
PROVIDERS: ADMIT Internal Medicine; ATTEND Internal Medicine
PROC: 5A1D60Z (ICD-10-PCS; principal; 2017-01-06)
DX: N39.0 Urinary tract infection, site not specified (principal); N18.6 End stage renal disease; G93.41 Metabolic encephalopathy; E11.22 Type 2 diabetes mellitus with diabetic chronic kidney disease; I12.0 Hypertensive chronic kidney disease with stage 5 chronic kidney disease or end stage renal disease; Z99.2 Dependence on renal dialysis; B96.20 Unspecified Escherichia coli [E. coli] as the cause of diseases classified elsewhere; E21.2 Other hyperparathyroidism; E11.319 Type 2 diabetes mellitus with unspecified diabetic retinopathy without macular edema; D63.1 Anemia in chronic kidney disease; K57.90 Diverticulosis of intestine, part unspecified, without perforation or abscess without bleeding; Z79.82 Long term (current) use of aspirin; Z79.4 Long term (current) use of insulin; I35.0 Nonrheumatic aortic (valve) stenosis; E78.5 Hyperlipidemia, unspecified; E11.65 Type 2 diabetes mellitus with hyperglycemia

== ENCOUNTER 2017-01-13 12:38 | Inpatient (IN) | payer MEDICAID ==
[~2017-01-13] VITALS: Ht 152.4 cm; Wt 55.1 kg
[~2017-01-13 12:38] MED LIST changes: +AMLO10TA3 PO; +CEPH-511 PO; +CICL15CR12 TP; +CLON1PAT2 TRANSDERM; +ERYT1OIN7 TOPICAL; +HYDR-3940 PO; +ISOS120T6 PO; +LABE200T PO
--- NOTE | 2017-01-13 12:47 | ED.REPORT ---
HPI-Altered Mental Status Date of Service Jan 13, 2017 ED Provider: Anali Martinez MD A 76 year old female dialysis patient presents to the ED from dialysis appointment due to AMS. Per nurse, dialysis staff report that this is not the patient's baseline mental status. She was recently hospitalized for UTI and discharged 2 days ago. Per old records, the patient was pleasant and confused a couple of days ago. This morning's dialysis appointment was the first since hospital discharge, she was on the machine for 30 minutes and did not receive any antibiotics. Patient mental status makes history intake difficult. Nursing Notes Stated Complaint: ALTERED MENTAL STATUS Nursing Notes Reviewed: Yes Allergies: Coded Allergies: cefazolin sodium (Verified Allergy, Unknown, NO ADR WITH CEFTRIAXONE IN ER , 01/04/17) morphine (Verified Adverse Reaction, Intermediate, Hallucinations, 01/04/17 ) Family reported morphine caused hallucination Cephalosporins (Verified Adverse Reaction, Unknown, 01/11/17) causes confusion Scheduled Amlodipine (Amlodipine) 10 Mg Tablet 10 MG PO QAM Aspirin (Aspirin) 325 Mg Tablet.dr 325 MG PO QAM Calcium Acetate (Calcium Acetate) 667 Mg Capsule 667 MG PO TIDWM Cephalexin (Keflex) 250 Mg Capsule 250 MG PO TID Ciclopirox Olamine (Ciclopirox) 15 Gm Cream..g. 1 APPLIC TP BID Cinacalcet HCl (Sensipar) 90 Mg Tablet 90 MG PO QAM Clonidine 0.2 mg/day Patch (Catapres TTS-2) 1 Each Patch 1 PATCH TRANSDERM WEEKLY Erythromycin Ophth Oint (Erythromycin Ophth Oint) 3.5 Gm Oint...g. 1 APPL TOPICAL BID APPLY TO TOES FOR INFECTION Folic Acid (Folic Acid) 1 Mg Tablet 5 MG PO DAILY Hydralazine (Hydralazine) 50 Mg Tablet 50 MG PO TID Insulin Glargine (Lantus U100 Solostar Insulin Pen) 100 Unit/1 Ml Insuln.pen 5- 10 UNIT SUBQ HS Insulin Lispro (HumaLOG U100 Insulin Pen) 100 Unit/1 Ml Insuln.pen 1-12 UNITS SUBQ TID-INSULIN Blood Sugar Lispro Correction <151 0 units 151-175 1 unit 176-200 2 units 201-225 3 units 226-250 4 units 251-275 5 units 276-300 6 units 301-325 7 units 326-350 8 units 351-375 9 units 376-400 10 units >400 12 units Check blood sugars before meals and at bedtime. Use correction factor only before meals. Isosorbide MN ER (Isosorbide MN ER) 120 Mg Tab.er.24h 120 MG PO QAM Labetalol (Labetalol) 200 Mg Tablet 200 MG PO TID Metoprolol Tartrate (Metoprolol Tartrate) 50 Mg Tablet 50 MG PO BID Multivitamin, Min Cmb#25/FA/D3 (Dialyvite [place] D Tablet) 1 Each Tablet 1 EACH PO QAM Sevelamer Carbonate (Renvela) 800 Mg Tablet 800 MG PO TIDWM WITH MEALS AND SNACKS General Time Seen by MD: 12:46 Chief Complaint Other (AMS) Hx Obtained From: Patient, EMS Arrived By: Ambulance Sudden in Onset?: No Onset Occurred: Onset unknown Symptom Duration: Duration unknown Progression since Onset: Unchanged Severity: Current: Mild Severity: Maximum: Mild Recent Healthcare: Recent hospitalization Similar Sx Previous: No Past Medical History Past Medical History Notes: Media 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 Clifton negative stress test in 2010 Past Medical History 1. Dyslipidemia. 2. End-stage renal disease. a. Secondary hyperparathyroidism. b. 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 3. Recurrent urinary tract infections. Urine culture (December 25, 2013) yielded E. coli resistant to Unasyn, ampicillin, piperacillin, and quinolones. 4. Clostridium difficile colitis. 5. Healthcare associated pneumonia 6. DVT 7. diverticulitis 8. ileus with prior small bowel obstruction Reports: Diabetes mellitus, GERD, Hyperlipidemia, Hypertension Past Surgical History 1. diverticular perforation requiring laparotomy and small-bowel resection and primary anastomosis with postoperative abscess and prolonged antibiotics. 2. AV fistula 3. patellar fracture repair 4. traumatic finger amputations Reports: Cholecystectomy Smoking History Never Smoker Social History Alcohol Use: Denies alcohol use Other Social History: Good social support, Local resident Ambulatory Status Independent Review of Systems Unable to Obtain ROS Mental status Physical Exam Initial Vital Signs Vital Signs (First) Date Time Temp Pulse Resp B/P Pulse Ox O2 Delivery O2 Flow Rate FiO2 01/13/17 12:54 36.6 70 20 160/62 98 Room Air Initial VS: Reviewed, Vital signs abnormal General/Constitutional: Awake, Alert Head / Eyes: Atraumatic, Normocephalic, PERRL, EOMI Neck: Atraumatic, Supple, Full range of motion Respiratory / Chest: Atraumatic, Breath sounds NL, Breath sounds = bilat, No respiratory distress, No rales, No rhonchi, No wheezing Cardiovascular: Heart rate NL, Regular rhythm, Heart sounds NL, No gallop, No murmurs, No rubs Neurologic: No motor deficits (moving all extremities) Patient is nonverbal and is incoherent with speech. ENT: Atraumatic, Mucous membranes moist Abdomen: Atraumatic, Soft, Non-tender, No guarding, No rebound Skin: Atraumatic, Color NL, Warm, Dry Interpretation & Diagnostics Lab Results Interpretation Result Diagram: 01/13/17 1320 01/13/17 1320 Test 01/13/17 13:20 01/13/17 13:58 White Blood Count 7.8th/mm3 (3.8-10.1) Red Blood Count 3.79mil/mm3 (3.90-5.20) Hemoglobin 12.2g/dL (12.0-15.6) Hematocrit 37.3% (35.0-46.0) Mean Corpuscular Volume 98.4fL (81-100) Mean Corpuscular Hemoglobin 32.2pg (27.0-35.0) Mean Corpuscular Hemoglobin Concent 32.7% (32.0-37.0) Red Cell Distribution Width 13.7% (12.3-15.4) Platelet Count 160bil/L (150-400) Neutrophils (%) (Auto) 68.1% (40-74) Lymphocytes (%) (Auto) 18.7% (14-46) Monocytes (%) (Auto) 8.2% (4-12) Eosinophils (%) (Auto) 4.4% (0-5) Basophils (%) (Auto) 0.5% (0-3) Sodium Level 135mEq/L (134-144) Potassium Level 5.1mEq/L (3.5-5.2) Chloride Level 91mEq/L (97-108) Carbon Dioxide Level 21mmol/L (18-29) Blood Urea Nitrogen 39mg/dL (8-27) Creatinine 5.90mg/dL (0.57-1.00) Estimat Glomerular Filtration Rate 10mL/min (>59) Glucose Level 156mg/dL (60-99) Lactic Acid Level 0.8mmol/L (0.4-2.0) Calcium Level 9.5mg/dL (8.5-10.1) Magnesium Level 2.7mg/dL (1.6-2.6) Total Bilirubin 0.4mg/dL (0.0-1.2) Aspartate Amino Transf (AST/SGOT) 25U/L (0-50) Alanine Aminotransferase (ALT/SGPT) < 5U/L (0-32) Alkaline Phosphatase 105U/L (25-165) Ammonia 24ug/dL (18-53) Total Protein 6.8g/dL (6.4-8.4) Albumin 4.0g/dL (3.4-5.0) Thyroid Stimulating Hormone (TSH) 2.890uIU/mL (0.450-4.500) Urine Color (YELLOW) Urine Appearance Turbid (CLEAR,HAZY) Urine pH 8.5 (5.0-8.0) Urine Specific [place] 1.010 (1.003-1.035) Urine Protein >300mg/dL (NEG,TRACE) Urine Glucose (UA) 100mg/dL (NEGATIVE) Urine Ketones Tracemg/dL (NEGATIVE) Urine Occult Blood Large (NEGATIVE) Urine Nitrite Positive (NEGATIVE) Urine Bilirubin Negative (NEGATIVE) Urine Urobilinogen Normalmg/dL (NORMAL) Urine Leukocyte Esterase Moderate (NEGATIVE) Urine RBC 11-50/hpf (0-2) Urine WBC 11-50/hpf (0-5) Urine Epithelial Cells Many/hpf (NONE-MOD) Urine Crystals Amorphous phosphates Urine Bacteria Moderate/hpf (NONE-FEW) Urine Hyaline Casts None/lpf (NONE) Urine Granular Casts None seen (NONE SEEN) Urine Waxy Casts None seen (NONE SEEN) Urine Red Blood Cell Casts None seen (NONE SEEN) Urine White Blood Cell Casts None seen (NONE SEEN) Urine Mucus Present (None Seen) Urine Trichomonas None seen (NONE SEEN) Urine Yeast None (NONE SEEN) Urinalysis Comment None Urine Culture Reflexed Indicated X-Ray Chest Interpretation Chest Xray Interpretation: IMPRESSION: The patient is mildly tilted rightward, and there is reduced inspiratory volume greater on the right than the left. No acute disease. Dictated by: Ashutosh Sue M.D. on 01/13/2017 at 12:49 Approved by: Ashutosh Sue M.D. on 01/13/2017 at 12:50 Interpretation / Wet Read by: Interpret - Radiologist CT Head Interpretation IMPRESSION: Moderate microvascular atherosclerotic change within the deep white matter of the chest there, expected for age. No definite acute disease. Dictated by: Ashutosh Sue M.D. on 01/13/2017 at 12:44 Approved by: Ashutosh Sue M.D. on 01/13/2017 at 12:45 Study: Head CT no contrast Interpretation / Wet Read by: Interpret - Radiologist Re-Eval/Medical Decision Med Decision/Clinical Course The patient presents altered according to dialysis. Family never showed up for the patient. It appears she has had this confusion since her last admission. Dialysis is sure that this is not her baseline and she is not saying anything coherent here. Patient still has signs of a urine infection which could be the cause of her symptoms. She may have worsening of her dementia however this was a rapid decline over short period of time. Source of Hx: Old records, EMS Re-Evaluation/Progress : Time of Eval: 12:46 Re-Evaluation/Progress Note: Explained plan for admission to patient. Consultation #1: Referral / Consult Name: Alex Beltran DO Call Returned at: 15:06 Electric System Operator: Accepts admit Consultation #2: Referral / Consult Name: Dejon Mao MD Call Returned at: 15:34 Electric System Operator: Will see patient, Agrees with plan Counseled Regarding: Diagnosis, Lab results, Need for follow-up, Need for admission Patient Discharge & Departure Impression: Primary Impression: Urinary tract infection Urinary tract infection type: acute cystitis Hematuria presence: without hematuria Qualified Code: N30.00 - Acute cystitis without hematuria Additional Impression: Delirium Disposition: ADMITTED TO HOSPITAL Discharge Condition All VS Reviewed: Yes Condition: Stable Referrals: JATIN (PCP) Kevin Attestation Portions of this note were transcribed by Richi Mccormick. I, Dr. Martienz personally performed the history, physical exam and medical decision-making; I reviewed and confirmed the accuracy of the information in the transcribed note. Signed by: Kevin Quinones, 01/13/2017, [id number]. copies to: Anali Bui MD Jan 13, 2017 12:47 Richi Mccormick Jan 13, 2017 12:55
[2017-01-13 12:54] VITALS: BP 160/62; PULSE 70; RESP 20; O2SAT 98
[2017-01-13] MEDS ORDERED: Ertapenem Inj 500 MG in 0.9% Sodium Chloride 50 ML IV ONE (13:00)
[2017-01-13 13:30] LABS: BASOPHILS % (AUTO) 0.5 % (0-3); EOSINOPHILS % (AUTO) 4.4 % (0-5); MONOCYTES % (AUTO) 8.2 % (4-12); Mean Corpuscular Hemoglobin 32.2 pg (27.0-35.0); Mean Corpuscular Volume 98.4 fL (81-100); NEUTROPHILS % (AUTO) 68.1 % (40-74); Platelet Count 160 bil/L (150-400)
--- NOTE | 2017-01-13 13:47 | DRSVH ---
PROCEDURE: CT BRAIN WITHOUT CONTRAST ([id number]) INDICATIONS: confusion TECHNIQUE: Noncontrast 4.5 mm thick angled axial sections acquired from the foramen magnum to the vertex, with c oronal reformats. COMPARISON: [facility], CT, CT BRAIN WO CON, 01/04/2017, 19:05. [facility], CT, BRAIN W/O CONTRAST, 04/24/2014, 12:28. FINDINGS: Image quality: Excellent except for mild persistent patient motion during image acquisition. CSF spaces: Basal cisterns are patent. No extra-axial fluid collections. The ventricles are symmet ahsan in size and shape. Brain: No intracranial bleeds or masses. There is cerebral volume loss for age, with resultant vent ricular and sulcal prominence. There are periventricular and deep white matter chronic small vessel ischemic changes. There is intracranial internal carotid artery atherosclerosis. Skull and face: Calvarium and visualized facial bones appear intact, without suspicious lesions. Sinuses: Visualized sinuses and mastoids are clear. IMPRESSION: Moderate microvascular atherosclerotic change within the deep white matter of the chest t here, expected for age. No definite acute disease. Dictated by: Ashutosh Sue M.D. on 01/13/2017 at 12:44 Approved by: Ashutosh Sue M.D. on 01/13/2017 at 12:45
--- NOTE | 2017-01-13 13:51 | DRSVH ---
PROCEDURE: X-RAY CHEST ONE VIEW, PORTABLE ([id number]) INDICATIONS: confusion TECHNIQUE: One view of the chest was acquired. COMPARISON: [facility], CR, XR CHEST 2VW, 05/28/2016, 21:26. [facility], CR, XR CHEST 1VW (PORTABLE), 01/05/2017, 5:22. [facility], CR, XR CHEST 2VW, 01/04/2017, 19:0 9. FINDINGS: Surgical changes and devices: None. Lungs and pleura: No pleural effusions or pneumothorax. Lungs are clear. Mediastinum: Mediastinal contours appear normal. Heart size is normal. Bones and chest wall: No suspicious bony lesions. Overlying soft tissues appear unremarkable. IMPRESSION: The patient is mildly tilted rightward, and there is reduced inspiratory volume greater o n the right than the left. No acute disease. Dictated by: Ashutosh Sue M.D. on 01/13/2017 at 12:49 Approved by: Ashutosh Sue M.D. on 01/13/2017 at 12:50
[2017-01-13 13:59] LABS: Magnesium 2.7 mg/dL (1.6-2.6)
[2017-01-13 14:10] VITALS: BP 152/59; PULSE 75; RESP 22; O2SAT 100
[2017-01-13 14:50] LABS: APPEARANCE,URINE TURBID (CLEAR,HAZY)
[2017-01-13 14:51] LABS: OCCULT BLOOD,URINE LARGE (NEGATIVE); PH,URINE 8.5 (5.0-8.0)
[2017-01-13 14:52] LABS: UROBILINOGEN,URINE NORMAL (NORMAL)
[2017-01-13] MEDS ORDERED: Alum-Mag Hydrox-Simeth 30 mL Suspension PO PRN (15:55)
[2017-01-13] MEDS ORDERED: Ondansetron 2 mg/mL 2 mL Inj IVPUSH PRN (15:55)
[2017-01-13] MEDS ORDERED: Polyethylene Glycol (PEG) 17 Gm Powder PO PRN (15:55)
[2017-01-13 16:07] VITALS: BP 147/60; PULSE 80; RESP 20; O2SAT 98
[2017-01-13] MEDS: 0.9% Sodium Chloride 1,000 ML IV SCH (17:07)
[2017-01-13] MEDS: Heparin 5,000 Unit/mL Inj SUBQ SCH (17:08)
[2017-01-13 17:15] VITALS: BP 166/67; PULSE 78; RESP 18; O2SAT 96
--- NOTE | 2017-01-13 17:31 | NUR ---
ADMIT Admitted a 76/M into room 3026 this evening at ~1700. Pt with impaired sight and [place]olan-speaking only. [employer] Collection Operator called to bedside to assist with admission process. Pt dc'd from [facility] on 01/11/17 following an admission for UTI/encephalopathy so much of admission information pulled from those records as there was no family initially at bedside. Pt on sats 96%. When asked (via business office representative) if pt had any pain/discomfort, she stated her throat was sore. Pt was able to state she was in the hospital. Did not know the year. Pt frequently tracing something on the ceiling, at times looking frightened. Per business office representative, pt saying, "The kids! Do you see them, get the kids. Do you hear them?" Pt also making statements about "in the car" and her children. Not able to follow directions. IV to R hand intact, patent and IVF running at 60ml/hr. All interventions explained to pt via business office representative, pt did not appear to understand. Son Shaan in shortly after, also [place]olan-speaking only. Son states pt is behaving the same as when she dc'd home on Tuesday and often hallucinating and "living in the past." Son states no medication changes since dc from hospital. He reports she has been eating/drinking without issue. Pt watching the ceiling, often grabbing at the air and appears frightened off and on. Son at bedside, offering comfort. MRI ordered this evening, PRN Ativan to be give prior per MD. Son updated on plan and all questions addressed. Bed in lowest, locked position and call light in reach.
--- NOTE | 2017-01-13 17:40 | PCM.HPMED ---
Subjective Date of Service Jan 13, 2017 Primary Provider: Admitting Physician: Dejon Mao MD Primary Care Physician: Noprylie Attending Physician: Dejon Mao MD Chief Complaint: Worsening Altered mental status/one day History of Present Illness: Ms. Ricardo Leach is 76 year old woman with history of ESRD secondary to DM on HD TTS, diabetic retinopathy with resulting blindness, and HTN, that was sent from dialysis center at [facility] due to altered mental status. Patient was hospitalized from 01/04 - 01/11 for same complaints and treated for MDR Escherichia coli UTI with Ertapenem and was discharged on Keflex to complete 3 more days treatment. Patient had a very gradual improvement of mentation and agitation on recent hospitalization and was discharged home on . Per son patient at baseline has some memory issues but able to function independently. Uses a walker to walk and able to have normal conversation. He states she has been confused and disoriented for the last 2 weeks. He states she has been improving and was almost back to baseline but continues to have worsening of confusion after started on Keflex. He states she had similar prolonged confusion 4 yrs ago due to UTI which eventually resolved. She was brought in for dialysis. Her dialysis nurse Marisa who knows the patient for years was concerned of her confusion and transferred patient to ED. No reported fever. No dyspnea or cough. Moves all extremities. ED course : BP 160 /60, other vitals unremarkable. CBC ,CMP unremarkable except a normal renal function test. No leukocytosis. Urinalysis with persistent pyuria. Urine culture sent.CT brain negative. Ertapenem given and admission requested Review of Systems: Unable to obtain Allergies Coded Allergies: cefazolin sodium (Verified Allergy, Unknown, NO ADR WITH CEFTRIAXONE IN ER , 01/04/17) morphine (Verified Adverse Reaction, Intermediate, Hallucinations, 01/04/17 ) Family reported morphine caused hallucination Cephalosporins (Verified Adverse Reaction, Unknown, 01/11/17) causes confusion Home Medications From discharge summary on 01/11 Amlodipine (Amlodipine) 10 Mg Tablet 10 MG PO QAM (Reported) Aspirin (Aspirin) 325 Mg Tablet.dr 325 MG PO QAM (Reported) Calcium Acetate (Calcium Acetate) 667 Mg Capsule 667 MG PO TIDWM (Reported) Cephalexin (Keflex) 250 Mg Capsule 250 MG PO TID Prescribed by: DEJON MAO MD Ciclopirox Olamine (Ciclopirox) 15 Gm Cream..g. 1 APPLIC TP BID (Reported) Cinacalcet HCl (Sensipar) 90 Mg Tablet 90 MG PO QAM (Reported) Clonidine 0.2 mg/day Patch (Catapres TTS-2) 1 Each Patch 1 PATCH TRANSDERM WEEKLY (Reported) Erythromycin Ophth Oint (Erythromycin Ophth Oint) 3.5 Gm Oint...g. 1 APPL TOPICAL BID (Reported) APPLY TO TOES FOR INFECTION Folic Acid (Folic Acid) 1 Mg Tablet 5 MG PO DAILY Prescribed by: TONY ROD MD Hydralazine (Hydralazine) 50 Mg Tablet 50 MG PO TID (Reported) Insulin Glargine (Lantus U100 Solostar Insulin Pen) 100 Unit/1 Ml Insuln.pen 5- 10 UNIT SUBQ HS (Reported) Insulin Lispro (HumaLOG U100 Insulin Pen) 100 Unit/1 Ml Insuln.pen 1-12 UNITS SUBQ TID-INSULIN (Reported) Blood Sugar Lispro Correction <151 0 units 151-175 1 unit 176-200 2 units 201-225 3 units 226-250 4 units 251-275 5 units 276-300 6 units 301-325 7 units 326-350 8 units 351-375 9 units 376-400 10 units >400 12 units Check blood sugars before meals and at bedtime. Use correction factor only before meals. Isosorbide MN ER (Isosorbide MN ER) 120 Mg Tab.er.24h 120 MG PO QAM (Reported) Labetalol (Labetalol) 200 Mg Tablet 200 MG PO TID Prescribed by: DEJON MAO MD Metoprolol Tartrate (Metoprolol Tartrate) 50 Mg Tablet 50 MG PO BID (Reported) Multivitamin, Min Cmb#25/FA/D3 (Dialyvite [place] D Tablet) 1 Each Tablet 1 EACH PO QAM (Reported) Sevelamer Carbonate (Renvela) 800 Mg Tablet 800 MG PO TIDWM (Reported) WITH MEALS AND SNACKS PMH per recent HPI ,no family member at bedside and pt confused 1. Dyslipidemia. 2. End-stage renal disease. a. Secondary hyperparathyroidism. b. 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 3. Recurrent urinary tract infections. Urine culture (December 25, 2013) yielded E. coli resistant to Unasyn, ampicillin, piperacillin, and quinolones. 4. Clostridium difficile colitis. 5. Healthcare associated pneumonia 6. DVT 7. diverticulitis 8. ileus with prior small bowel obstruction Reports: Diabetes mellitus, GERD, Hyperlipidemia, Hypertension, diabetic retinopathy Surgical History per recent H&P 1. diverticular perforation requiring laparotomy and small-bowel resection and primary anastomosis with postoperative abscess and prolonged antibiotics. 2. AV fistula; left UE 3. patellar fracture repair 4. traumatic finger amputations Reports: Cholecystectomy Family History unremarkable per recent H&P Social History Hx Alcohol Use: No Hx Substance Use: No Hx Tobacco Use: No Smoking Status: Never Smoker Exam Vital Signs Vital Sign - Last Date Time Temp Pulse Resp B/P Pulse Ox O2 Delivery O2 Flow Rate FiO2 01/13/17 17:15 37.1 78 18 166/67 96 Room Air Exam Gen. patient is lying comfortably in hospital bed, confused and not oriented 3 HEENT: Head is normocephalic atraumatic, Pupils equal and reactive, extraocular movements intact, Lungs clear to auscultation bilaterally Heart regular rate and rhythm without murmurs gallops or rubs Abdomen soft nontender without hepatosplenomegaly Extremities pulses are present dorsalis pedis posterior tibialis and radial. tSkin is warm and dry there are no rashes, Psych alert but not oriented to person place and time Neuro cranial nerves II through XII are grossly intact Lymph: There is no lymphadenopathy appreciated in the cervical supra infraclavicular regions : no contreras Lab and Diagnostics Result Diagram: 01/13/17 1320 01/13/17 1320 Microbiology [facility] CULT URINE Final 01/06/17-0833 Organism 1 ESCHERICHIA COLI U COLONY COUNT/QUANTITY >100,000 CFU/ml Cefazolin-predicts results for the oral agents, cefaclor,cefdinir, cefpodoximen, cefprozil, cefuroximne axetil, cephalexin and loracarbed when used for therapy of uncomplicated UTI's due to E. coli, K. pneumoniae, and Proteus mirabilis. Cefpodoxime, cefdinir and cefuroxime axetil may be tested individually because some isolates may be susceptible to these agents while testing resistant to cefazolin. (CLSI E829-O44 pg 53) 1. ESCHERICHIA COLI M.I.C Interp --------- ------ * AMOXICILLIN/CLAVULATE 16 I * AMPICILLIN >=32 R * CEFAZOLIN (CEPHALOSPORIN) UTI 4 S * CEFEPIME <=1 S * CEFTRIAXONE <=1 S * CEFUROXIME SODIUM 4 S * CIPROFLOXACIN >=4 R * ERTAPENEM <=0.5 S * GENTAMICIN 8 I * IMIPENEM <=1 S * LEVOFLOXACIN >=8 R * NITROFURANTOIN <=16 S * TETRACYCLINE >=16 R * TOBRAMYCIN >=16 R * TRIMETHOPRIM/SULFAMETHOXAZOLE <=20 S X-Rays, CTs and MRIs PROCEDURE: CT BRAIN WITHOUT CONTRAST ([id number]) INDICATIONS: confusion TECHNIQUE: Noncontrast 4.5 mm thick angled axial sections acquired from the foramen magnum to the vertex, with coronal reformats. COMPARISON: [facility], CT, CT BRAIN WO CON, 01/04/2017, 19:05. [facility], CT, BRAIN W/O CONTRAST, 04/24/2014, 12:28. FINDINGS: Image quality: Excellent except for mild persistent patient motion during image acquisition. CSF spaces: Basal cisterns are patent. No extra-axial fluid collections. The ventricles are symmetric in size and shape. Brain: No intracranial bleeds or masses. There is cerebral volume loss for age , with resultant ventricular and sulcal prominence. There are periventricular and deep white matter chronic small vessel ischemic changes. There is intracranial internal carotid artery atherosclerosis. Skull and face: Calvarium and visualized facial bones appear intact, without suspicious lesions. Sinuses: Visualized sinuses and mastoids are clear. IMPRESSION: Moderate microvascular atherosclerotic change within the deep white matter of the chest there, expected for age. No definite acute disease. Dictated by: Ashutosh Sue M.D. on 01/13/2017 at 12:44 Assessment & Plan # Worsening Acute encephalopathy, POA, -likely in the setting of partially treated UTI. - Recent urine culture E.coli+ MDR, ESRD, CTH no acute findings, previous similar episode, recent workup B12/folate, Mg, phos, thyroid all WNL -pt initially had improvement of confusion on recent admission, expect slow recovery as per Son -UA with persistent pyuria,ucx pending -will continue ertapenem -Gross urine appearance purulent per ED attending -will do MRI to look for other causes given recent treatment and no other sign of sepsis # UTI, acute, present on admission. UCX showed E.Coli sens+ ertapenem, cephalosporin but pt is allergic to(unknown reaction). renal US 01/06 unremarkable - History of recurrent UTIs; reported allergy to cephalosporins/cefazolin; tolerated keflex on day of discharge - 07/2014: E. coli resistant to quinolones, and intermediate resistance to piperacillin.Recent urine culture E.coli+ MDR - Received ertapenem ED, c/w that chronic, stable # ESRD on HD, chronic. 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
[2017-01-13 17:53] VITALS: PULSE 83
[2017-01-13] MEDS: CICLOPIROX OLAMINE TOPICAL SCH (19:45)
[2017-01-13] MEDS ORDERED: Erythromycin 0.5% 3.5 Gm Ophthalmic Ointment BOTH_EYES SCH (20:30)
[2017-01-13 20:39] VITALS: BP 150/57; PULSE 71; RESP 18; O2SAT 96
[2017-01-13] MEDS: Insulin GLARgine 100 Unit/mL Syringe SUBQ SCH (21:00)
[2017-01-14] VITALS (8 sets, daily range): BP systolic 117–175; BP diastolic 53–76; PULSE 70–78; RESP 16–18; O2SAT 92–96
[2017-01-14] MEDS: Heparin 5,000 Unit/mL Inj SUBQ SCH ×4 (00:32→23:55)
--- NOTE | 2017-01-14 01:04 | NUR ---
MRI Pt was pre-medicated with 1mg of IV lorazepam. Pt remained calm enough to compleat MRI. Results paged to night hospitalist.
[2017-01-14 06:27] LABS: BASOPHILS % (AUTO) 0.5 % (0-3); EOSINOPHILS % (AUTO) 3.9 % (0-5); MONOCYTES % (AUTO) 7.8 % (4-12); Mean Corpuscular Hemoglobin 31.7 pg (27.0-35.0); NEUTROPHILS % (AUTO) 68.6 % (40-74); Platelet Count 153 bil/L (150-400)
[2017-01-14 06:46] LABS: Magnesium 2.8 mg/dL (1.6-2.6)
[2017-01-14] MEDS: CICLOPIROX OLAMINE TOPICAL SCH ×2 (08:30→20:30)
--- NOTE | 2017-01-14 08:39 | NUR ---
Transfer to [facility] [place] for Dialysis Report given to SUKHJINDER Vernon in MOC. Taken to Bed 244. No s/sx of distress. Meds in chart.
--- NOTE | 2017-01-14 09:58 | CONS ---
[address] [address] CONSULTATION REPORT PATIENT: JANET BELLAMY : 1940 MR#: [id number] ADMIT: 01/13/2017 JOB ID: [id number] DATE OF SERVICE: 01/14/2017 RENAL CONSULTATION: HISTORY: The patient is a rather unfortunate 76-year-old female with a history of end-stage renal disease, who was recently discharged from [facility]. She had come to dialysis yesterday for her routine dialysis and was found to have altered mental status and was subsequently sent to the emergency department. Renal consultation is requested for further management of her end-stage renal disease. She was recently hospitalized and discharged on January 11 for altered mental status. According to several of the nurses who have taken care of her, she has been in declining health and mental status for the last several months. During her most recent admission, she was treated for multi drug resistant E. coli urinary tract infections with ertapenem. She was subsequently discharged on Keflex. Apparently during her last hospitalization, she had some improvement in her mental status but had not come back to her baseline. Unfortunately this morning, the patient is unable to give much information as she still is quite somnolent and confused. PAST MEDICAL HISTORY: Is significant for: 1. End-stage renal disease, which is due to diabetic renal disease and hypertension. 2. Diabetic renal disease. 3. Hypertension with hypertensive heart disease and hypertensive nephrosclerosis. 4. Hyperlipidemia. 5. Recurrent urinary tract infections. 6. History of C. difficile colitis. 7. Deep venous thrombosis. PAST SURGICAL HISTORY: Is significant for: 1. Diverticular disease. 2. Small bowel resection. 3. Left AV fistula. 4. Patellar fracture repair. 5. Traumatic finger amputation. 6. She has also had a cholecystectomy. ALLERGIES: The patient is allergic to CEPHALOSPORIN, CEFAZOLIN and MORPHINE. SOCIAL HISTORY: There is no history of any alcohol, tobacco or illicit drug use. MEDICATIONS: At time of admission include: Amlodipine, aspirin, calcium acetate, Keflex, cinacalcet, clonidine patch, folic acid, hydralazine, insulin, isosorbide, labetalol and metoprolol for reasons I am unsure of. FAMILY HISTORY: Unobtainable. PHYSICAL EXAMINATION: Reveals a frail, chronically ill appearing 76-year-old female who was awake and alert but unable to give much information. She was in no distress at time of my evaluation. Her blood pressure is 146/69 with a pulse of 70. HEENT examination is remarkable for pale sclerae. Mucous membranes were moist. Neck is supple without adenopathy, thyromegaly or jugular venous distention. Lungs are clear with poor inspiratory effort. Heart was regular and rhythmical. Abdomen is soft, and there was some mild distention. She denied any tenderness, rebound, guarding, masses or hepatosplenomegaly. Extremities do not show any evidence of any clubbing, cyanosis or edema. Skin turgor was diminished and there was no evidence of any rashes. LABORATORY EXAMINATION: This morning her white count is 9.5, hemoglobin of 10.9, hematocrit 34.4. Red cell indices, platelet count and differential were normal. Her sodium is 136, potassium 4.9, chloride 95, bicarbonate 24. BUN and creatinine were 47 and 7.01. Liver function studies were unremarkable. Urinalysis obtained at admission showed a specific gravity of 1.010, pH was 8.5, tests for protein, glucose, ketones, occult blood, nitrate and leukocyte esterase were all positive. She had 11-50 RBCs and WBCs per high-power field with moderate bacteria. IMPRESSION: 1. End-stage renal disease-dialysis dependent. 2. Recurrent cystitis. 3. Hypertension with hypertensive heart disease and hypertensive nephrosclerosis. 4. Dementia. RECOMMENDATION: The patient is being dialyzed today for 4 hours on a 2 potassium bath. We will not be taking any fluid off because of the patient's intravascular volume depletion. I would also like to see the results of her culture once these are obtained. Once again, I would like to thank you for allowing me to participate in the care of this rather unfortunate patient. I will be following her closely with you.
--- NOTE | 2017-01-14 12:16 | DRSVH ---
PROCEDURE: MRI BRAIN WITHOUT CONTRAST ([id number]) INDICATIONS: Altered mental status TECHNIQUE: Non-contrast axial T1 spin echo, axial T2 fast spin echo, sagittal and axial FLAIR, coronal T2 fast s pin echo, axial gradient echo, axial diffusion and ADC through the brain. COMPARISON: None. FINDINGS: Image quality: Limited by patient motion. CSF spaces: Mild, diffuse prominence of CSF space noted. Ventricles appear symmetric in size and sha pe. Basal cisterns are patent. No extra-axial fluid collections. Brain: No intracranial bleeds or mass effects. There is cerebral volume loss for age. There are mi ld periventricular and deep white matter chronic small vessel ischemic changes. Brainstem appears no rmal. Diffusion-weighted images show no acute ischemic insults. No chronic ischemic insults. Absenc e of flow void noted in the V4 segment of the left vertebral artery. Normal flow voids noted in the r emainder of the major central cerebral vessels. Skull and face: Calvarial bone marrow is normal in signal. Orbits are normal. Sinuses: Sinuses and mastoids are clear. IMPRESSION: 1. Image quality by patient motion artifact. 2. No acute intracranial disease process. 3. No areas of acute or chronic infarction. 4. Mild, diffuse lung loss. 5. Periventricular and subcortical white matter chronic microvascular ischemic changes. 6. 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 Dictated by: Ca Kapadia MD, PhD on 01/14/2017 at 12:11 Approved by: Ca Kapadia MD, PhD on 01/14/2017 at 12:14
--- NOTE | 2017-01-14 13:00 | NUR ---
Dialysis note: 3 1/2 hrs tx Zero net UF Left upper arm fistula Pls see DTR for VS details Qb 500 Heparin given O2 @ 2L via NC on during tx Tolerated tx, slept at intervals Fistula needle sites clotted w/in 10 min Stable condition at end of tx Report given to Janeen SLAUGHTER
--- NOTE | 2017-01-14 13:15 | NUR ---
pt on MOC for DIALYSIS from 0840 to ~1300 report received from and provided back to JR SLAUGHTER ([facility]) tele teletypesetter monitor informed of temp location and return to unit see mechanical applications engineer note, intervention, and/or graphic flow for treatment details
[2017-01-14] MEDS: Isosorbide Mononitrate 60 mg ER24 Tablet PO SCH (14:43)
--- NOTE | 2017-01-14 16:37 | PCM.PNMED ---
Subjective Date of Service Jan 14, 2017 Subjective Patient calm today,not agitated. Exam Vital Signs Vital Sign - Last Date Time Temp Pulse Resp B/P Pulse Ox O2 Delivery O2 Flow Rate FiO2 01/14/17 13:23 36.8 78 18 175/75 95 Room Air Intake and Output 01/13/17 01/13/17 01/14/17 Cumulative From/Thru 15:00 23:00 07:00 01/13/17 12:54 - 01/14/17 06:25 Intake Total 0 ml 0 ml Output Total 0 ml 0 ml Balance 0 ml 0 ml Intake Oral 0 ml 0 ml Output Urine Total 0 ml 0 ml # Voids 0 0 # Bowel Movements 1 1 Exam Gen. patient is lying comfortably in hospital bed, confused and not oriented 3 HEENT: Head is normocephalic atraumatic, Pupils equal and reactive, extraocular movements intact, Lungs clear to auscultation bilaterally Heart regular rate and rhythm without murmurs gallops or rubs Abdomen soft nontender without hepatosplenomegaly Extremities pulses are present dorsalis pedis posterior tibialis and radial. tSkin is warm and dry there are no rashes, Psych alert but not oriented to person place and time Neuro cranial nerves II through XII are grossly intact Lymph: There is no lymphadenopathy appreciated in the cervical supra infraclavicular regions : no contreras IVs and Medications Medications Reviewed: Medications were reviewed in detail Lab and Diagnostics Result Diagram: 01/14/1760401/14/17604 Microbiology LLOYD CULT URINE Final 01/06/17-0833 Organism 1 ESCHERICHIA COLI U COLONY COUNT/QUANTITY >100,000 CFU/ml Cefazolin-predicts results for the oral agents, cefaclor,cefdinir, cefpodoximen, cefprozil, cefuroximne axetil, cephalexin and loracarbed when used for therapy of uncomplicated UTI's due to E. coli, K. pneumoniae, and Proteus mirabilis. Cefpodoxime, cefdinir and cefuroxime axetil may be tested individually because some isolates may be susceptible to these agents while testing resistant to cefazolin. (CLSI P517-V45 pg 53) 1. ESCHERICHIA COLI M.I.C Interp --------- ------ * AMOXICILLIN/CLAVULATE 16 I * AMPICILLIN >=32 R * CEFAZOLIN (CEPHALOSPORIN) UTI 4 S * CEFEPIME <=1 S * CEFTRIAXONE <=1 S * CEFUROXIME SODIUM 4 S * CIPROFLOXACIN >=4 R * ERTAPENEM <=0.5 S * GENTAMICIN 8 I * IMIPENEM <=1 S * LEVOFLOXACIN >=8 R * NITROFURANTOIN <=16 S * TETRACYCLINE >=16 R * TOBRAMYCIN >=16 R * TRIMETHOPRIM/SULFAMETHOXAZOLE <=20 S X-Rays, CTs and MRIs PROCEDURE: CT BRAIN WITHOUT CONTRAST ([id number]) IMPRESSION: Moderate microvascular atherosclerotic change within the deep white matter of the chest there, expected for age. No definite acute disease. Dictated by: Ashutosh Sue M.D. on 01/13/2017 at 12:44 PROCEDURE: MRI BRAIN WITHOUT CONTRAST ([id number]) INDICATIONS: Altered mental status TECHNIQUE: Non-contrast axial T1 spin echo, axial T2 fast spin echo, sagittal and axial FLAIR, coronal T2 fast spin echo, axial gradient echo, axial diffusion and ADC through the brain. COMPARISON: None. FINDINGS: Image quality: Limited by patient motion. CSF spaces: Mild, diffuse prominence of CSF space noted. Ventricles appear symmetric in size and shape. Basal cisterns are patent. No extra-axial fluid collections. Brain: No intracranial bleeds or mass effects. There is cerebral volume loss for age. There are mild periventricular and deep white matter chronic small vessel ischemic changes. Brainstem appears normal. Diffusion-weighted images show no acute ischemic insults. No chronic ischemic insults. Absence of flow void noted in the V4 segment of the left vertebral artery. Normal flow voids noted in the remainder of the major central cerebral vessels. Skull and face: Calvarial bone marrow is normal in signal. Orbits are normal. Sinuses: Sinuses and mastoids are clear. IMPRESSION: 1. Image quality by patient motion artifact. 2. No acute intracranial disease process. 3. No areas of acute or chronic infarction. 4. Mild, diffuse lung loss. 5. Periventricular and subcortical white matter chronic microvascular ischemic changes. 6. 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 Dictated by: Ca Kapadia MD, PhD on 01/14/2017 at 12:11 Assessment & Plan # Worsening Acute encephalopathy, POA, -likely in the setting of partially treated or recurrent UTI versus left vertebral artery dissection - Recent urine culture E.coli+ MDR, previous similar episode due to UTI per son , recent workup B12/folate, Mg, phos, thyroid all WNL -pt initially had improvement of confusion on recent admission, expect slow recovery as per Son -UA with persistent pyuria,ucx no growth -will continue ertapenem -Gross urine appearance purulent per ED attending # UTI, acute, present on admission. Recent UCX showed E.Coli sens+ ertapenem, cephalosporin but pt is allergic to(unknown reaction). renal US 01/06 unremarkable - 07/2014: E. coli resistant to quinolones, and intermediate resistance to piperacillin.Recent urine culture E.coli+ MDR - Received ertapenem ED, c/w that # Left vertebral artery block, -Unclear if acute or chronic. Likely chronic given the fact there is no acute ischemia on MRI. Unclear if it is contributing to current altered mental state -per Dr Champion dissection can't be excluded. He recommends adding Plavix on aspirin. Also requested CT angiogram of head and neck to rule out dissection per Dr. champion. notified nephrology Dr. Beltran plan for angiogram. Will consider dialyzing tomorrow. She had dialysis today -Consulted Dr. champion chronic, stable # ESRD on HD, chronic. 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
[2017-01-14] MEDS: Ertapenem Inj 500 MG in 0.9% Sodium Chloride 50 ML IV SCH (17:07)
[2017-01-14] MEDS: 0.9% Sodium Chloride 1,000 ML IV SCH (17:08)
--- NOTE | 2017-01-14 18:25 | DRSVH ---
PROCEDURE: CT ANGIO HEAD AND NECK (P) INDICATIONS: suspected dissection TECHNIQUE: Pre-contrast 4.5 mm thick sections acquired from the foramen magnum to the vertex. After the adminis tration of intravenous contrast, 1 mm thick sections acquired from the aortic arch through the [place] of [place]. Post-contrast 4.5 mm thick sections then re-acquired from the foramen magnum to the vert ex. 3-dimensional zghmswg-jbjowrzlj-mgqepnbeko (MIP) and/or volume rendering reformats were acquired of the central intracranial vasculature and neck separately. For radiation dose reduction, the foll owing was used: automated exposure control, adjustment of mA and/or kV according to patient size. COMPARISON: [facility], MR, MR BRAIN WO CON, 01/14/2017, 0:00. FINDINGS: Image quality: Excellent. BRAIN: CSF spaces: Ventricles are normal in size and shape. Basal cisterns are patent. No extra-axial flu id collections. Brain: No midline shift. Mild diffuse cerebral volume loss. Mild degree of patchy if there is signa l within the periventricular and subcortical white matter. Bilateral basal ganglia calcifications. No intracranial bleeds or masses. Lynch-white matter interface appears intact. Skull and face: Calvarium and facial bones appear intact, without suspicious lesions. Orbits appear normal. Sinuses: Sinuses and mastoids are clear. HEAD CT ANGIOGRAPHY: Left transverse sinus is not well seen, and appear to be small in caliber. Anterior circulation: Intracranial internal carotid arteries are normal in size and flow. The flow within the paired anterior cerebral arteries is normal and symmetric. The flow within the middle cer ebral arteries is normal and symmetric. The anterior communicating artery is seen. No aneurysms are seen. Posterior circulation: Visualized portions of the vertebral arteries demonstrate normal caliber, and join to form a normal appearing basilar artery. Flow within the posterior cerebral arteries is norm al and symmetric. No aneurysms are seen. NECK CT ANGIOGRAPHY: Carotid system: The great vessels demonstrate a conventional anatomy as they arise from the aortic a rch. The origins of the common carotid arteries appear patent. The common carotid arteries demonstr ate normal caliber and courses. There is roughly 40 percent origin stenosis of the right internal ca rotid artery. Roughly 20% origin stenosis of the left internal carotid artery. Posterior circulation: Right vertebral artery origin is patent. Mild left vertebral artery origin krzysztof nosis. The more superior extracranial portions of both vertebral arteries also demonstrate normal cou rses and calibers. They join to form a normal appearing basilar artery. Soft tissues: 14 mm diameter right thyroid nodule. Visualized neck soft tissues otherwise demonstrat e no suspicious abnormalities. Bones: No suspicious bony lesions. Visualized cervical spine appears normally aligned. IMPRESSION: 1. No acute process. 2. Less than 50% bilateral internal carotid artery stenosis. 3. Patent right vertebral artery. Mild origin stenosis involving the left vertebral artery. The occlu nu seen by MRI consequently represents artifact. 4. Right thyroid nodule, which could be further assessed with ultrasound, if clinically indicated. 5. Diffusely narrowed left transverse sinus, possibly due to remote thrombus or congenital variation. Dictated by: Jg Ortiz M.D. on 01/14/2017 at 18:18 Approved by: Jg Ortiz M.D. on 01/14/2017 at 18:24
--- NOTE | 2017-01-14 18:44 | NUR ---
Mentation [place]an only speaking pt, had interpretive services in for assessment analysis. Pt confused but appeared to be in better mood and more with it than normal. After dialysis, pt said she did not get dialysis today. Also did not mention living with her son Chun. Pt may call son by different name but responded to some questioning with inappropriate answers. Pt was cooperative during shift, able to start new IV, get CT scan, and tolerated bed/brief changes without much complaint. Pt did spit out some medications given in pudding. Recommend crushing all meds and use alot of chocolate pudding to help tolerate.
[2017-01-14] MEDS: Insulin GLARgine 100 Unit/mL Syringe SUBQ SCH (21:19)
[2017-01-15] VITALS (10 sets, daily range): BP systolic 90–150; BP diastolic 55–71; PULSE 65–113; RESP 14–17; O2SAT 94–96
[2017-01-15] MEDS: 0.9% Sodium Chloride 1,000 ML IV SCH (03:55)
--- NOTE | 2017-01-15 07:05 | NUR ---
Mentation/Fever Pt appears drowsy, wake up by voice and light touch, very confused, oriented to self and son only, sometimes agitation and combative with care such as repositioning and brief change. BP stable, low grade fever last evening 37.8, resolved automatically. On Ertapenem scheduled.
[2017-01-15] MEDS: CICLOPIROX OLAMINE TOPICAL SCH ×2 (08:30→22:41)
[2017-01-15] MEDS: Isosorbide Mononitrate 60 mg ER24 Tablet PO SCH (09:34)
[2017-01-15] MEDS: Heparin 5,000 Unit/mL Inj SUBQ SCH ×2 (09:36→15:39)
--- NOTE | 2017-01-15 10:56 | NUR ---
No Dialysis per report from NOC nurse Dialysis T, TH, Sat. Dr. Beltran here this AM and orders to discontinue NS at 60 and [address] today[address] Dr[address] Mao aware.
--- NOTE | 2017-01-15 11:17 | PCM.PNNEPH ---
Subjective Date of Service Jan 15, 2017 Subjective Patient is much more alert today and has considerably less breathing problems. Her blood pressure is up and she continues to be receiving IV fluids which I will discontinue. Exam Vital Signs Vital Sign - Last Date Time Temp Pulse Resp B/P Pulse Ox O2 Delivery O2 Flow Rate FiO2 01/15/17 08:14 70 01/15/17 07:42 36.7 14 150/62 95 Room Air Intake and Output 01/14/17 01/14/17 01/15/17 Cumulative From/Thru 15:00 23:00 07:00 01/13/17 12:54 - 01/15/17 06:03 Intake Total 1647 ml 0 ml 1647 ml Output Total 0 ml 0 ml 0 ml Balance 0 ml 1647 ml 0 ml 1647 ml Intake Oral 337 ml 0 ml 337 ml IV Total 1310 ml 1310 ml Output Urine Total 0 ml 0 ml Ultrafiltrate 0 ml 0 ml # Voids 0 0 # Bowel Movements 1 1 3 Exam Neck is supple without adenopathy, thyromegaly, or jugular venous distention. Lungs are clear to auscultation. Abdomen soft systolic murmur. Abdomen is soft without any tenderness or rebound guarding masses or hepatosplenomegaly. Extremities not show any evidence of any clubbing, cyanosis, or edema. Lab and Diagnostics Result Diagram: 01/14/1760401/14/17604 Microbiology [facility] CULT URINE Final 01/06/17-0833 Organism 1 ESCHERICHIA COLI U COLONY COUNT/QUANTITY >100,000 CFU/ml Cefazolin-predicts results for the oral agents, cefaclor,cefdinir, cefpodoximen, cefprozil, cefuroximne axetil, cephalexin and loracarbed when used for therapy of uncomplicated UTI's due to E. coli, K. pneumoniae, and Proteus mirabilis. Cefpodoxime, cefdinir and cefuroxime axetil may be tested individually because some isolates may be susceptible to these agents while testing resistant to cefazolin. (CLSI B323-L62 pg 53) 1. ESCHERICHIA COLI M.I.C Interp --------- ------ * AMOXICILLIN/CLAVULATE 16 I * AMPICILLIN >=32 R * CEFAZOLIN (CEPHALOSPORIN) UTI 4 S * CEFEPIME <=1 S * CEFTRIAXONE <=1 S * CEFUROXIME SODIUM 4 S * CIPROFLOXACIN >=4 R * ERTAPENEM <=0.5 S * GENTAMICIN 8 I * IMIPENEM <=1 S * LEVOFLOXACIN >=8 R * NITROFURANTOIN <=16 S * TETRACYCLINE >=16 R * TOBRAMYCIN >=16 R * TRIMETHOPRIM/SULFAMETHOXAZOLE <=20 S X-Rays, CTs and MRIs PROCEDURE: CT BRAIN WITHOUT CONTRAST ([id number]) IMPRESSION: Moderate microvascular atherosclerotic change within the deep white matter of the chest there, expected for age. No definite acute disease. Dictated by: Ashutosh Sue M.D. on 01/13/2017 at 12:44 PROCEDURE: MRI BRAIN WITHOUT CONTRAST ([id number]) INDICATIONS: Altered mental status TECHNIQUE: Non-contrast axial T1 spin echo, axial T2 fast spin echo, sagittal and axial FLAIR, coronal T2 fast spin echo, axial gradient echo, axial diffusion and ADC through the brain. COMPARISON: None. FINDINGS: Image quality: Limited by patient motion. CSF spaces: Mild, diffuse prominence of CSF space noted. Ventricles appear symmetric in size and shape. Basal cisterns are patent. No extra-axial fluid collections. Brain: No intracranial bleeds or mass effects. There is cerebral volume loss for age. There are mild periventricular and deep white matter chronic small vessel ischemic changes. Brainstem appears normal. Diffusion-weighted images show no acute ischemic insults. No chronic ischemic insults. Absence of flow void noted in the V4 segment of the left vertebral artery. Normal flow voids noted in the remainder of the major central cerebral vessels. Skull and face: Calvarial bone marrow is normal in signal. Orbits are normal. Sinuses: Sinuses and mastoids are clear. IMPRESSION: 1. Image quality by patient motion artifact. 2. No acute intracranial disease process. 3. No areas of acute or chronic infarction. 4. Mild, diffuse lung loss. 5. Periventricular and subcortical white matter chronic microvascular ischemic changes. 6. 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 Dictated by: Ca Kapadia MD, PhD on 01/14/2017 at 12:11 Plan Impression Impression #1 end-stage renal disease dialysis dependent #2 hypertension with hypertensive heart disease and hypertensive nephrosclerosis \Recommendation #1 stop her IV fluids. We will also make arrangements for her as her dialysis treatment in the morning. Alex Beltran DO Jan 15, 2017 11:17
--- NOTE | 2017-01-15 12:00 | NUR ---
Student Nurse Note: Patient resting most of shift. Cooperative and handles procedures well. Crushed am pills and gave with applesauce. Was able to swallow Sensipar with pudding and sips of water. Ciclopirox ointment: held this shift, no rash present. Per MD: apply only if rash present.
--- NOTE | 2017-01-15 13:20 | PCM.PNMED ---
Subjective Date of Service Jan 15, 2017 Subjective Patient more alert and interactive today. She follows commands. CT brain and neck unremarkable. Temp 37.8 Exam Vital Signs Vital Sign - Last Date Time Temp Pulse Resp B/P Pulse Ox O2 Delivery O2 Flow Rate FiO2 01/15/17 12:13 36.8 65 17 116/55 95 Room Air Intake and Output 01/14/17 01/14/17 01/15/17 Cumulative From/Thru 15:00 23:00 07:00 01/13/17 12:54 - 01/15/17 06:03 Intake Total 1647 ml 0 ml 1647 ml Output Total 0 ml 0 ml 0 ml Balance 0 ml 1647 ml 0 ml 1647 ml Intake Oral 337 ml 0 ml 337 ml IV Total 1310 ml 1310 ml Output Urine Total 0 ml 0 ml Ultrafiltrate 0 ml 0 ml # Voids 0 0 # Bowel Movements 1 1 3 Exam Gen. patient is lying comfortably in hospital bed, follows commands HEENT: Head is normocephalic atraumatic, Pupils equal and reactive, extraocular movements intact, Lungs clear to auscultation bilaterally Heart regular rate and rhythm without murmurs gallops or rubs Abdomen soft nontender without hepatosplenomegaly Extremities pulses are present dorsalis pedis posterior tibialis and radial. tSkin is warm and dry there are no rashes, Psych alert but not oriented to person place and time Neuro blind, other cranial nerves intact Lymph: There is no lymphadenopathy appreciated in the cervical supra infraclavicular regions : no contreras IVs and Medications Medications Reviewed: Medications were reviewed in detail Lab and Diagnostics Result Diagram: 01/14/1760401/14/17 06 Microbiology [facility] CULT URINE Final 01/06/17-0833 Organism 1 ESCHERICHIA COLI U COLONY COUNT/QUANTITY >100,000 CFU/ml Cefazolin-predicts results for the oral agents, cefaclor,cefdinir, cefpodoximen, cefprozil, cefuroximne axetil, cephalexin and loracarbed when used for therapy of uncomplicated UTI's due to E. coli, K. pneumoniae, and Proteus mirabilis. Cefpodoxime, cefdinir and cefuroxime axetil may be tested individually because some isolates may be susceptible to these agents while testing resistant to cefazolin. (CLSI Q005-K41 pg 53) 1. ESCHERICHIA COLI M.I.C Interp --------- ------ * AMOXICILLIN/CLAVULATE 16 I * AMPICILLIN >=32 R * CEFAZOLIN (CEPHALOSPORIN) UTI 4 S * CEFEPIME <=1 S * CEFTRIAXONE <=1 S * CEFUROXIME SODIUM 4 S * CIPROFLOXACIN >=4 R * ERTAPENEM <=0.5 S * GENTAMICIN 8 I * IMIPENEM <=1 S * LEVOFLOXACIN >=8 R * NITROFURANTOIN <=16 S * TETRACYCLINE >=16 R * TOBRAMYCIN >=16 R * TRIMETHOPRIM/SULFAMETHOXAZOLE <=20 S X-Rays, CTs and MRIs PROCEDURE: CT BRAIN WITHOUT CONTRAST ([id number]) IMPRESSION: Moderate microvascular atherosclerotic change within the deep white matter of the chest there, expected for age. No definite acute disease. Dictated by: Ashutosh Sue M.D. on 01/13/2017 at 12:44 PROCEDURE: MRI BRAIN WITHOUT CONTRAST ([id number]) INDICATIONS: Altered mental status IMPRESSION: 1. Image quality by patient motion artifact. 2. No acute intracranial disease process. 3. No areas of acute or chronic infarction. 4. Mild, diffuse lung loss. 5. Periventricular and subcortical white matter chronic microvascular ischemic changes. 6. 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 Dictated by: Ca Kapadia MD, PhD on 01/14/2017 at 12:11 PROCEDURE: CT ANGIO HEAD AND NECK (P) INDICATIONS: suspected dissection IMPRESSION: 1. No acute process. 2. Less than 50% bilateral internal carotid artery stenosis. 3. Patent right vertebral artery. Mild origin stenosis involving the left vertebral artery. The occlusion seen by MRI consequently represents artifact. 4. Right thyroid nodule, which could be further assessed with ultrasound, if clinically indicated. 5. Diffusely narrowed left transverse sinus, possibly due to remote thrombus or congenital variation. Dictated by: Jg Ortiz M.D. on 01/14/2017 at 18:18 Assessment & Plan # Worsening Acute encephalopathy, POA, -likely due to partially treated or recurrent UTI - Recent urine culture E.coli+ MDR, previous similar episode due to UTI per son , recent workup B12/folate, Mg, phos, thyroid all WNL -pt initially had improvement of confusion on recent admission, expect slow recovery as per Son -UA with persistent pyuria,ucx no growth -will continue ertapenem -Gross urine appearance purulent per ED attending # UTI, acute, present on admission. Recent UCX showed E.Coli sens+ ertapenem, cephalosporin but pt is allergic to(unknown reaction). renal US 01/06 unremarkable - 07/2014: E. coli resistant to quinolones, and intermediate resistance to piperacillin.Recent urine culture E.coli+ MDR - Received ertapenem ED, c/w that # Initially suspected Left vertebral artery block on MRI , ruled out -per Dr Champion dissection can't be excluded on the initial MRI. added Plavix on aspirin pending CT angiogram of head and neck. Dissection ruled out on CTA. Will discontinue Plavix -Consulted Dr. champion chronic, stable # ESRD on HD, chronic. 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
--- NOTE | 2017-01-15 14:30 | NUR ---
BP medications held BP 115/54, pulse 66. Notified Dr. Mao and orders to hold 1430 dose of Hydralazine and Labetalol. Held BP medications as ordered. Will continue to monitor BP. Student nurse aware. family at bed side. patient and family aware.
--- NOTE | 2017-01-15 14:32 | NUR ---
Student Nurse Note: Holding 1430 Labatelol 200mg and hydralazine 50mg per MD order. BP 115/54, HR 66.
[2017-01-15] MEDS: Ertapenem Inj 500 MG in 0.9% Sodium Chloride 50 ML IV SCH (15:32)
[2017-01-15] MEDS: Insulin GLARgine 100 Unit/mL Syringe SUBQ SCH (22:41)
[2017-01-16] VITALS (8 sets, daily range): BP systolic 107–147; BP diastolic 44–70; PULSE 70–73; RESP 16–18; O2SAT 96–100
[2017-01-16] MEDS: Heparin 5,000 Unit/mL Inj SUBQ SCH ×3 (01:19→16:33)
--- NOTE | 2017-01-16 06:00 | NUR ---
Activity Pt up to BSC with 1-2 person assist, unsteady on feet. Pt had BM X1, calmoseptine applied to skin. Turn pt Q4 hours while asleep. Pt reports no pain. Call light within reach, frequent rounding.
--- NOTE | 2017-01-16 08:24 | PCM.DIMED ---
Discharge Instructions Date of Service Jan 16, 2017 Dates of Hospitalization Jan 13, 2017 at 16:00 Discharge Diagnosis Discharge Diagnosis # Worsening Acute encephalopathy, POA, Resolved -likely due to partially treated UTI # UTI, acute, present on admission. # Initially suspected Left vertebral artery block on MRI , ruled out chronic, stable # ESRD on HD, chronic. 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 Mentation improved back to baseline per jasmin Mccollum at bedside. No oral antibiotics upon discharge.completed course since the first admission. Please follow up with PCP in 1 week. Follow-up Provider: Tierney Clifton MD Follow-up with PCP in: 1 week Dejon Mao MD Jan 16, 2017 08:24
[2017-01-16] MEDS: CICLOPIROX OLAMINE TOPICAL SCH (08:30)
--- NOTE | 2017-01-16 08:40 | PCM.DC.MED ---
Discharge Summary Date of Service Jan 16, 2017 Dates of Hospitalization Date of Hospital Admission Jan 13, 2017 at 16:00 Date of Discharge: Jan 16, 2017 Providers: Admitting Physician: Dejon Pinto MD Primary Care Physician: Noprylie Attending Physician: Dejon Pinto MD Diagnosis at Time of Discharge Diagnosis at Time of Discharge # Worsening Acute encephalopathy, POA, Resolved -likely due to partially treated UTI # UTI, acute, present on admission. # Initially suspected Left vertebral artery block on MRI , ruled out chronic, stable # ESRD on HD, chronic. 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 No definite acute disease. Dictated by: Ashutosh Sue M.D. on 01/13/2017 at 12:44 PROCEDURE: MRI BRAIN WITHOUT CONTRAST ([id number]) INDICATIONS: Altered mental status IMPRESSION: 1. Image quality by patient motion artifact. 2. No acute intracranial disease process. 3. No areas of acute or chronic infarction. 4. Mild, diffuse lung loss. 5. Periventricular and subcortical white matter chronic microvascular ischemic changes. 6. 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 Dictated by: Ca Kapadia MD, PhD on 01/14/2017 at 12:11 PROCEDURE: CT ANGIO HEAD AND NECK (P) INDICATIONS: suspected dissection IMPRESSION: 1. No acute process. 2. Less than 50% bilateral internal carotid artery stenosis. 3. Patent right vertebral artery. Mild origin stenosis involving the left vertebral artery. The occlusion seen by MRI consequently represents artifact. 4. Right thyroid nodule, which could be further assessed with ultrasound, if clinically indicated. 5. Diffusely narrowed left transverse sinus, possibly due to remote thrombus or congenital variation. Dictated by: Jg Ortiz M.D. on 01/14/2017 at 18:18 Brief History per HPI Ms. Ricardo Leach is 76 year old woman with history of ESRD secondary to DM on HD TTS, diabetic retinopathy with resulting blindness, and HTN, that was sent from dialysis center at [facility] due to altered mental status. Patient was hospitalized from 01/04 - 01/11 for same complaints and treated for MDR Escherichia coli UTI with Ertapenem and was discharged on Keflex to complete 3 more days treatment. Patient had a very gradual improvement of mentation and agitation on recent hospitalization and was discharged home on . Per son patient at baseline has some memory issues but able to function independently. Uses a walker to walk and able to have normal conversation. He states she has been confused and disoriented for the last 2 weeks. He states she has been improving and was almost back to baseline but continues to have worsening of confusion after started on Keflex. He states she had similar prolonged confusion 4 yrs ago due to UTI which eventually resolved. She was brought in for dialysis. Her dialysis nurse Marisa who knows the patient for years was concerned of her confusion and transferred patient to ED. No reported fever. No dyspnea or cough. Moves all extremities. ED course : BP 160 /60, other vitals unremarkable. CBC ,CMP unremarkable except a normal renal function test. No leukocytosis. Urinalysis with persistent pyuria. Urine culture sent.CT brain negative. Ertapenem given and admission requested Hospital Course # Worsening Acute encephalopathy, POA, -Initially thought to be due to partially treated or recurrent UTI . Mentation improved the next morning after admission after dialysis. No evidence of sepsis like fever or leukocytosis. Brief Altered mental status may as well be due to uremia - Recent urine culture E.coli+ MDR, previous similar episode due to UTI per son , recent workup B12/folate, Mg, phos, thyroid all WNL -pt initially had improvement of confusion on recent admission, but again had confusion which prompted transfer from dialysis center emergency room. Current confusion resolved in < 24hrs .will not give antibiotic up on discharge . Patient received 12 days of antibiotic/ertapenem So far -UA with persistent pyuria,ucx no growth -Treated with ertapenem. Discontinued upon discharge -Urine culture on current admission no growth #Recent UTI, present on admission. Recent UCX showed E.Coli sens+ ertapenem, cephalosporin but pt is allergic to(unknown reaction). renal US 01/06 unremarkable - 07/2014: E. coli resistant to quinolones, and intermediate resistance to piperacillin.Recent urine culture E.coli+ MDR - treated with ertapenem . Discontinue antibiotics upon discharge as above # Initially suspected Left vertebral artery block on MRI , ruled out -per Dr Nogueira dissection can't be excluded on the initial MRI. Initially added Plavix on aspirin pending CT angiogram of head and neck. Dissection ruled out on CTA. Will discontinue Plavix chronic, stable # ESRD on HD, chronic. 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 Condition on discharge stable and improved. Spoke with son. Mccollum at bedside today. He states his mom is back to baseline. He agrees with discharge. Exam Vital Signs (Last) Date Time Temp Pulse Resp B/P Pulse Ox O2 Delivery O2 Flow Rate FiO2 01/16/17 06:27 37.0 73 16 139/55 96 Room Air Exam Gen. patient is lying comfortably in hospital bed, follows commands. Oriented to place, person. Patient's mental status at baseline now per jasmin Mccollum at bedside HEENT: Head is normocephalic atraumatic, Pupils equal and reactive, extraocular movements intact, Lungs clear to auscultation bilaterally Heart regular rate and rhythm without murmurs gallops or rubs Abdomen soft nontender without hepatosplenomegaly Extremities pulses are present dorsalis pedis posterior tibialis and radial. tSkin is warm and dry there are no rashes, Psych alert and oriented to person and place Neuro blind, other cranial nerves intact Lymph: There is no lymphadenopathy appreciated in the cervical supra infraclavicular regions : no contreras Test 01/13/17 13:20 01/13/17 13:58 01/14/17 06:05 Lactic Acid Level 0.8mmol/L (0.4-2.0) Ammonia 24ug/dL (18-53) Thyroid Stimulating Hormone (TSH) 2.890uIU/mL (0.450-4.500) Urine Color (YELLOW) Urine Appearance Turbid (CLEAR,HAZY) Urine pH 8.5 (5.0-8.0) Urine Specific [place] 1.010 (1.003-1.035) Urine Protein >300mg/dL (NEG,TRACE) Urine Glucose (UA) 100mg/dL (NEGATIVE) Urine Ketones Tracemg/dL (NEGATIVE) Urine Occult Blood Large (NEGATIVE) Urine Nitrite Positive (NEGATIVE) Urine Bilirubin Negative (NEGATIVE) Urine Urobilinogen Normalmg/dL (NORMAL) Urine Leukocyte Esterase Moderate (NEGATIVE) Urine RBC 11-50/hpf (0-2) Urine WBC 11-50/hpf (0-5) Urine Epithelial Cells Many/hpf (NONE-MOD) Urine Crystals Amorphous phosphates Urine Bacteria Moderate/hpf (NONE-FEW) Urine Hyaline Casts None/lpf (NONE) Urine Granular Casts None seen (NONE SEEN) Urine Waxy Casts None seen (NONE SEEN) Urine Red Blood Cell Casts None seen (NONE SEEN) Urine White Blood Cell Casts None seen (NONE SEEN) Urine Mucus Present (None Seen) Urine Trichomonas None seen (NONE SEEN) Urine Yeast None (NONE SEEN) Urinalysis Comment None Urine Culture Reflexed Indicated White Blood Count 9.5th/mm3 (3.8-10.1) Red Blood Count 3.44mil/mm3 (3.90-5.20) Hemoglobin 10.9g/dL (12.0-15.6) Hematocrit 34.4% (35.0-46.0) Mean Corpuscular Volume 100.0fL (81-100) Mean Corpuscular Hemoglobin 31.7pg (27.0-35.0) Mean Corpuscular Hemoglobin Concent 31.7% (32.0-37.0) Red Cell Distribution Width 13.6% (12.3-15.4) Platelet Count 153bil/L (150-400) Neutrophils (%) (Auto) 68.6% (40-74) Lymphocytes (%) (Auto) 19.0% (14-46) Monocytes (%) (Auto) 7.8% (4-12) Eosinophils (%) (Auto) 3.9% (0-5) Basophils (%) (Auto) 0.5% (0-3) Sodium Level 136mEq/L (134-144) Potassium Level 4.9mEq/L (3.5-5.2) Chloride Level 95mEq/L (97-108) Carbon Dioxide Level 24mmol/L (18-29) Blood Urea Nitrogen 47mg/dL (8-27) Creatinine 7.08mg/dL (0.57-1.00) Estimat Glomerular Filtration Rate 8mL/min (>59) Glucose Level 89mg/dL (60-99) Calcium Level 9.1mg/dL (8.5-10.1) Magnesium Level 2.8mg/dL (1.6-2.6) Total Bilirubin 0.3mg/dL (0.0-1.2) Aspartate Amino Transf (AST/SGOT) 21U/L (0-50) Alanine Aminotransferase (ALT/SGPT) 5U/L (0-32) Alkaline Phosphatase 90U/L (25-165) Total Protein 6.0g/dL (6.4-8.4) Albumin 3.6g/dL (3.4-5.0) Procalcitonin 0.28ng/mL (0.00-0.08) Microbiology Results [facility] CULT URINE Final 01/06/17-832 Organism 1 ESCHERICHIA COLI U COLONY COUNT/QUANTITY >100,000 CFU/ml Cefazolin-predicts results for the oral agents, cefaclor,cefdinir, cefpodoximen, cefprozil, cefuroximne axetil, cephalexin and loracarbed when used for therapy of uncomplicated UTI's due to E. coli, K. pneumoniae, and Proteus mirabilis. Cefpodoxime, cefdinir and cefuroxime axetil may be tested individually because some isolates may be susceptible to these agents while testing resistant to cefazolin. (CLSI T257-Z08 pg 53) 1. ESCHERICHIA COLI M.I.C Interp --------- ------ * AMOXICILLIN/CLAVULATE 16 I * AMPICILLIN >=32 R * CEFAZOLIN (CEPHALOSPORIN) UTI 4 S * CEFEPIME <=1 S * CEFTRIAXONE <=1 S * CEFUROXIME SODIUM 4 S * CIPROFLOXACIN >=4 R * ERTAPENEM <=0.5 S * GENTAMICIN 8 I * IMIPENEM <=1 S * LEVOFLOXACIN >=8 R * NITROFURANTOIN <=16 S * TETRACYCLINE >=16 R * TOBRAMYCIN >=16 R * TRIMETHOPRIM/SULFAMETHOXAZOLE <=20 S Discharge Medications Discharge Medications Amlodipine (Amlodipine) 10 Mg Tablet 10 MG PO QAM (Reported) Aspirin (Aspirin) 325 Mg Tablet.dr 325 MG PO QAM (Reported) Calcium Acetate (Calcium Acetate) 667 Mg Capsule 667 MG PO TIDWM (Reported) Ciclopirox Olamine (Ciclopirox) 15 Gm Cream..g. 1 APPLIC TP BID (Reported) Cinacalcet HCl (Sensipar) 90 Mg Tablet 90 MG PO QAM (Reported) Clonidine 0.2 mg/day Patch (Catapres TTS-2) 1 Each Patch 1 PATCH TRANSDERM WEEKLY (Reported) Erythromycin Ophth Oint (Erythromycin Ophth Oint) 3.5 Gm Oint...g. 1 APPL TOPICAL BID (Reported) APPLY TO TOES FOR INFECTION Folic Acid (Folic Acid) 1 Mg Tablet 5 MG PO DAILY Prescribed by: TONY ROD MD Hydralazine (Hydralazine) 50 Mg Tablet 50 MG PO TID (Reported) Insulin Glargine (Lantus U100 Solostar Insulin Pen) 100 Unit/1 Ml Insuln.pen 5- 10 UNIT SUBQ HS (Reported) Insulin Lispro (HumaLOG U100 Insulin Pen) 100 Unit/1 Ml Insuln.pen 1-12 UNITS SUBQ TID-INSULIN (Reported) Blood Sugar Lispro Correction <151 0 units 151-175 1 unit 176-200 2 units 201-225 3 units 226-250 4 units 251-275 5 units 276-300 6 units 301-325 7 units 326-350 8 units 351-375 9 units 376-400 10 units >400 12 units Check blood sugars before meals and at bedtime. Use correction factor only before meals. Isosorbide MN ER (Isosorbide MN ER) 120 Mg Tab.er.24h 120 MG PO QAM (Reported) Labetalol (Labetalol) 200 Mg Tablet 200 MG PO TID Prescribed by: DEJON PINTO MD Metoprolol Tartrate (Metoprolol Tartrate) 50 Mg Tablet 50 MG PO BID (Reported) Multivitamin, Min Cmb#25/FA/D3 (Dialyvite [place] D Tablet) 1 Each Tablet 1 EACH PO QAM (Reported) Sevelamer Carbonate (Renvela) 800 Mg Tablet 800 MG PO TIDWM (Reported) WITH MEALS AND SNACKS Followup Plan Disposition: home Discharge Diet: Renal Diet Discharge Activity: Limited until seen by PCP Patient Instructions You were hospitalized due to worsening mental status due to partially treated UTI. Mentation improved back to baseline per jasmin Mccollum at bedside. No oral antibiotics upon discharge.completed course since the first admission. Please follow up with PCP in 1 week. Follow-up Provider: Tierney Clifton MD Follow-up with PCP in: 1 week Time spent 35 minutes copies to: Tierney Clifton MD, Melaku MD Jan 16, 2017 08:40
--- NOTE | 2017-01-16 10:03 | NUR ---
Dialysis Pt. transferred [place] [facility] [place] [facility] [place] [facility]. [facility] / ?.?? was notified of location. [place] [facility] [place], Santos Holly RN.
--- NOTE | 2017-01-16 10:51 | PCM.PNNEPH ---
Subjective Date of Service Jan 16, 2017 Subjective The patient continues to have some mild obtundation. Urine culture has come back negative. Otherwise she is eating fair and offers no new complaints. Exam Vital Signs Vital Sign - Last Date Time Temp Pulse Resp B/P Pulse Ox O2 Delivery O2 Flow Rate FiO2 01/16/17 09:42 36.8 70 16 134/67 97 Room Air Intake and Output 01/15/17 01/15/17 01/16/17 Cumulative From/Thru 15:00 23:00 07:00 01/13/17 12:54 - 01/16/17 06:58 Intake Total 756 ml 975 ml 120 ml 3498 ml Output Total 0 ml 0 ml 0 ml Balance 756 ml 975 ml 120 ml 3498 ml Intake Oral 875 ml 120 ml 1332 ml IV Total 756 ml 100 ml 2166 ml Output Urine Total 0 ml 0 ml 0 ml Ultrafiltrate 0 ml # Voids 0 # Bowel Movements 0 1 4 Exam Neck is supple without adenopathy, thyromegaly, or jugular venous distention. Lungs are clear to auscultation. Heart is regular and rhythmical systolic murmur. Abdomen is soft without any tenderness rebound guarding masses or hepatosplenomegaly. Extremities do not show any evidence of any clubbing cyanosis or edema. Skin turgor is good. Lab and Diagnostics Result Diagram: 01/14/1760401/14/17604 Microbiology [facility] CULT URINE Final 01/06/17-0833 Organism 1 ESCHERICHIA COLI U COLONY COUNT/QUANTITY >100,000 CFU/ml Cefazolin-predicts results for the oral agents, cefaclor,cefdinir, cefpodoximen, cefprozil, cefuroximne axetil, cephalexin and loracarbed when used for therapy of uncomplicated UTI's due to E. coli, K. pneumoniae, and Proteus mirabilis. Cefpodoxime, cefdinir and cefuroxime axetil may be tested individually because some isolates may be susceptible to these agents while testing resistant to cefazolin. (CLSI X922-M19 pg 53) 1. ESCHERICHIA COLI M.I.C Interp --------- ------ * AMOXICILLIN/CLAVULATE 16 I * AMPICILLIN >=32 R * CEFAZOLIN (CEPHALOSPORIN) UTI 4 S * CEFEPIME <=1 S * CEFTRIAXONE <=1 S * CEFUROXIME SODIUM 4 S * CIPROFLOXACIN >=4 R * ERTAPENEM <=0.5 S * GENTAMICIN 8 I * IMIPENEM <=1 S * LEVOFLOXACIN >=8 R * NITROFURANTOIN <=16 S * TETRACYCLINE >=16 R * TOBRAMYCIN >=16 R * TRIMETHOPRIM/SULFAMETHOXAZOLE <=20 S X-Rays, CTs and MRIs PROCEDURE: CT BRAIN WITHOUT CONTRAST ([id number]) IMPRESSION: Moderate microvascular atherosclerotic change within the deep white matter of the chest there, expected for age. No definite acute disease. Dictated by: Ashutosh Sue M.D. on 01/13/2017 at 12:44 PROCEDURE: MRI BRAIN WITHOUT CONTRAST ([id number]) INDICATIONS: Altered mental status IMPRESSION: 1. Image quality by patient motion artifact. 2. No acute intracranial disease process. 3. No areas of acute or chronic infarction. 4. Mild, diffuse lung loss. 5. Periventricular and subcortical white matter chronic microvascular ischemic changes. 6. 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 Dictated by: Ca Kapadia MD, PhD on 01/14/2017 at 12:11 PROCEDURE: CT ANGIO HEAD AND NECK (P) INDICATIONS: suspected dissection IMPRESSION: 1. No acute process. 2. Less than 50% bilateral internal carotid artery stenosis. 3. Patent right vertebral artery. Mild origin stenosis involving the left vertebral artery. The occlusion seen by MRI consequently represents artifact. 4. Right thyroid nodule, which could be further assessed with ultrasound, if clinically indicated. 5. Diffusely narrowed left transverse sinus, possibly due to remote thrombus or congenital variation. Dictated by: Jg Ortiz M.D. on 01/14/2017 at 18:18 Plan Impression Impression #1 end-stage renal disease dialysis dependent Recommendations #1 she is scheduled for dialysis on Tuesday. Alex Beltran DO Jan 16, 2017 10:51
--- NOTE | 2017-01-16 13:54 | NUR ---
Dialysis note: 3 1/2 hrs tx 2000 ml net UF Left upper arm fistula Pls see DTR for VS details Qb 500 Heparin given O2 @ 2L via NC on during tx Tolerated tx, slept at intervals Fistula needle sites clotted w/in 10 min Stable condition at end of tx Report given to Court SLAUGHTER
--- NOTE | 2017-01-16 14:14 | NUR ---
Post dialysis Pt. transferred from [facility] to [facility] at 1406. Report given to Santos Holly RN. [employer] was notified of her return to [facility].
[2017-01-16] MEDS: Isosorbide Mononitrate 60 mg ER24 Tablet PO SCH (14:29)
[2017-01-16] MEDS: Ertapenem Inj 500 MG in 0.9% Sodium Chloride 50 ML IV SCH (16:36)
--- NOTE | 2017-01-16 17:30 | NUR ---
DISCHARGE Patient discharged home at 1730 off floor in wheelchair accompanied by MACHINE SEWER and son. Two IVs discontinued intact, all belongings returned. All instructions for diet, activity, medications and follow-up reviewed with patient's son (patient's co-caregiver) who speaks Hebrew and reports understanding. Vitals stable, denies pain and in no apparent distress.
--- NOTE | 2017-02-24 21:15 | CONS ---
[address] [address] CONSULTATION REPORT PATIENT: JANET BELLAMY : 1940 MR#: [id number] ADMIT: 01/13/2017 JOB ID: [id number] DATE OF SERVICE: 01/14/2017 REQUESTING PROVIDER: Dejon Mao MD CHIEF COMPLAINT: Change in mental status. HISTORY OF PRESENTING ILLNESS: The patient is a pleasant 76-year-old woman with multiple medical problems including a history of end-stage renal disease. She had been recently hospitalized and went to dialysis and was noted to have altered mental status and was sent to the emergency department. She had been hospitalized and discharged on January 11 for altered mental status. Nursing staff reported that she has had intermittent episodes of altered mental status for the past several months. During the most recent admission, she was treated for multidrug resistant E. coli urinary tract infection with ertapenem and was discharged on Keflex with some improvement of her mental status during the last hospitalization, however, at the time of this admission, she was noted to have a change again in mental status and was noted to be somnolent and confused. History was obtained from the chart and from family members including her son. PAST MEDICAL HISTORY: End-stage renal disease, secondary diabetic renal disease and hypertension, diabetic renal disease, hypertension with hypertensive heart disease and hypertensive nephrosclerosis, hyperlipidemia, recurrent urinary tract infections, a history of Clostridium difficile colitis, history of deep venous thrombosis. PAST SURGICAL HISTORY: Status post diverticular disease-related surgery status post small bowel resection, status post AV fistula, status post patellar fracture repair, status post traumatic finger amputations, status post cholecystectomy. ALLERGIES: 1. CEPHALOSPORIN. 2. CEPHAZOLIN. 3. MORPHINE. SOCIAL HISTORY: No tobacco, alcohol, or drugs. Family at bedside. FAMILY HISTORY: Unobtainable. REVIEW OF SYSTEMS: Could not be obtained due to the patient's somnolent status. PHYSICAL EXAMINATION: Vital signs: Temperature 36.7, pulse of 76, respiratory rate of 18, blood pressure 170/62 pulse oximetry 94% on room air. [place]. General: She is a frail, chronically appearing woman in no acute distress. Head: Normocephalic, atraumatic. Neck was supple. No carotid bruits were auscultated. Negative Kernig. Negative Brudzinski. Chest: Clear to auscultation. Heart: Regular rate and rhythm. Abdomen: Soft, mild distention. No tenderness to palpation. Extremities: No clubbing, cyanosis, or edema. Skin: No rashes. NEUROLOGIC EXAMINATION: She is awake, alert, and oriented x1. She was able to open her eyes, however, was not able to follow any complex commands. Examination was performed in Slovak. She did not follow any complex commands. She was able to open her eyes and to lift her right arm. Cranial nerves: Pupils were equal, round, reactive to light. Extraocular movements were smooth and conjugate with no evidence of nystagmus. Face appeared symmetrical. Facial sensation was intact to light touch and temperature. Auditory sensation was intact to voice. Tongue was midline. Motor: She is moves all four extremities spontaneously. Sensory: She withdrew symmetrically to noxious stimuli. Deep tendon reflexes were 1+ throughout, absent at the Achilles bilateral. Plantars were silent bilaterally. Gait was deferred. IMAGING STUDIES: She did have a CT of her head demonstrating moderate microvascular ischemic changes within the deep white that appear expected for age. No definite acute disease. A brain MRI was performed, demonstrating that the image quality was limited by patient motion artifact. No acute intracranial disease process was noted. No areas of acute or chronic infarction. Mild diffuse loss of cortical tissue with cerebral volume loss for age. Periventricular and subcortical white matter, chronic microvascular ischemic changes. Absence of a flow void in the left vertebral artery suspicious for thrombosis. Secondary to this and the change in mental status, I did recommend a computed tomography angiogram of her head and neck. This reviewed no acute intracranial process. Less than 50% bilateral internal carotid artery stenosis. Patent right vertebral artery. Mild origin stenosis involving the left vertebral artery. The occlusion seen by the magnetic resonance imaging study consequently represents artifact. I reviewed this in detail with Radiology. Right thyroid nodule which could be further assessed with an ultrasound if clinically indicated. Also, diffusely narrowed left transverse sinus possibly secondary to remote thrombosis or congenital variation. HOME MEDICATIONS: Include: 1. Amlodipine. 2. Aspirin 325 mg daily. 3. Calcium. 4. Keflex. 5. Ciclopirox. 6. Sensipar. 7. Clonidine. 8. Erythromycin. 9. Folic acid. 10. Hydralazine. 11. Lantus. 12. Lispro. 13. Isosorbide. 14. Labetalol. 15. Metoprolol. 16. Multivitamin. 17. Renvela. IMPRESSION: Change in mental status likely secondary to toxic metabolic encephalopathy. Given the clinical history, I was concerned for the possibility of a cerebrovascular etiology such as a dissection or stroke, however, based on the computed tomography angiogram and it appears that there is no evidence suggestive of a dissection or stroke. There is no evidence of acute stroke. Certainly, her symptoms may be secondary to other potential etiologies for toxic metabolic encephalopathy including a urinary tract infection versus other infectious etiologies versus electrolyte abnormalities. RECOMMENDATION: I recommend continued optimization of control of the patient's stroke risk factors. In addition, I do recommend continuing on aspirin 325 mg daily. Initially, based on the abnormal magnetic resonance angiogram and the patient's mental status changes, we did discuss the addition of Plavix for treatment of symptomatic intracranial stenosis. However, in this scenario, given that the computed tomography angiogram did not reveal evidence of intracranial or extracranial stenosis, at this time I do recommend that she just continue on aspirin 325 mg as the antiplatelet therapy and to continue to optimize control of stroke risk factors. I had initially recommended to Dr. Mao dual antiplatelet therapy given my concern based on the magnetic resonance angiogram for either vertebral dissection versus vertebral stenosis, however, given the computed tomography angiogram which demonstrated the absence of any abnormalities of the left vertebral artery, it is unlikely that these etiologies represent the cause of the patient's change in mental status and, in light of this, aspirin 325mg is recommended as well as continued optimization of control of stroke risk factors. Thank you, again, Dr. Mao, for allowing me to participate in the care of your patient. Please feel free to contact me with any questions or concerns. BERNABE
== END 2017-01-16 17:32 | disposition home or self-care (01) | DRG 689 ==
LOC: EDUNIT# 12:38 → EDBD 12:38 → SED 12:38 → MPC 16:00 → OBSVTOIN 16:00 → MPC 16:33
PROVIDERS: ADMIT Internal Medicine; ATTEND Internal Medicine
DX: N39.0 Urinary tract infection, site not specified (principal); G93.40 Encephalopathy, unspecified; N18.6 End stage renal disease; I13.0 Hypertensive heart and chronic kidney disease with heart failure and stage 1 through stage 4 chronic kidney disease, or unspecified chronic kidney disease; N25.81 Secondary hyperparathyroidism of renal origin; E11.22 Type 2 diabetes mellitus with diabetic chronic kidney disease; F03.90 Unspecified dementia, unspecified severity, without behavioral disturbance, psychotic disturbance, mood disturbance, and anxiety; E11.319 Type 2 diabetes mellitus with unspecified diabetic retinopathy without macular edema; H54.0 Blindness, both eyes; E78.5 Hyperlipidemia, unspecified; K21.9 Gastro-esophageal reflux disease without esophagitis; B96.20 Unspecified Escherichia coli [E. coli] as the cause of diseases classified elsewhere; Z16.11 Resistance to penicillins; Z16.23 Resistance to quinolones and fluoroquinolones; Z16.29 Resistance to other single specified antibiotic; Z99.2 Dependence on renal dialysis; Z86.718 Personal history of other venous thrombosis and embolism; Z79.82 Long term (current) use of aspirin; Z86.19 Personal history of other infectious and parasitic diseases; Z90.49 Acquired absence of other specified parts of digestive tract; Z88.1 Allergy status to other antibiotic agents; Z79.4 Long term (current) use of insulin

== ENCOUNTER 2017-03-17 21:30 | Inpatient (IN) | payer MEDICAID ==
[~2017-03-17] VITALS: Ht 162.6 cm; Wt 61.5 kg
[~2017-03-17 21:30] MED LIST changes: -CEPH-511 PO
[2017-03-17 22:15] VITALS: BP 128/59; PULSE 68; RESP 18; O2SAT 100
--- NOTE | 2017-03-17 22:31 | ED.REPORT ---
HPI-General Illness Date of Service Mar 17, 2017 ED Provider: Roberto Ayala Patient is a 76 year old female with a hx of CRF on dialysis, HTN, and DM who presents to the ED complaining of an acid burning sensation in her chest and throat. Her pain does not seem to be related to activity but she is in her wheelchair most of the time. Associated symptoms include abdominal bloating, back pain, chills, mild headache, and chronic constipation. She had a hard BM this morning followed my a normal BM later today but had not had a BM for 3-4 days prior. She has had similar symptoms previously and her son reports that these are the same symptoms she has with a kidney infection. Her symptoms are improved with belching. She denies cough, vomiting, fever, or any other symptoms. She does not make urine at baseline and has a hx of frequent kidney infections. She had dialysis today. Nursing Notes Stated Complaint: ABDOMINAL PAIN Chief Complaint: General Complaint Nursing Notes Reviewed: Yes Allergies: Coded Allergies: cefazolin sodium (Verified Allergy, Unknown, NO ADR WITH CEFTRIAXONE IN ER , 01/04/17) morphine (Verified Adverse Reaction, Intermediate, Hallucinations, 01/04/17 ) Family reported morphine caused hallucination Cephalosporins (Verified Adverse Reaction, Unknown, 01/11/17) causes confusion Scheduled Amlodipine (Amlodipine) 10 Mg Tablet 10 MG PO QAM Aspirin (Aspirin) 325 Mg Tablet.dr 325 MG PO QAM Calcium Acetate (Calcium Acetate) 667 Mg Capsule 667 MG PO TIDWM Cinacalcet HCl (Sensipar) 90 Mg Tablet 60 MG PO BID Clonidine 0.2 mg/day Patch (Catapres TTS-2) 1 Each Patch 1 PATCH TRANSDERM WEEKLY Folic Acid (Folic Acid) 1 Mg Tablet 5 MG PO DAILY Hydralazine (Hydralazine) 50 Mg Tablet 50 MG PO TID Insulin Glargine (Lantus U100 Solostar Insulin Pen) 100 Unit/1 Ml Insuln.pen 5- 10 UNIT SUBQ HS Insulin Lispro (HumaLOG U100 Insulin Pen) 100 Unit/1 Ml Insuln.pen 1-12 UNITS SUBQ TID-INSULIN Blood Sugar Lispro Correction <151 0 units 151-175 1 unit 176-200 2 units 201-225 3 units 226-250 4 units 251-275 5 units 276-300 6 units 301-325 7 units 326-350 8 units 351-375 9 units 376-400 10 units >400 12 units Check blood sugars before meals and at bedtime. Use correction factor only before meals. Isosorbide MN ER (Isosorbide MN ER) 120 Mg Tab.er.24h 120 MG PO QAM Labetalol (Labetalol) 200 Mg Tablet 200 MG PO TID Metoprolol Tartrate (Metoprolol Tartrate) 50 Mg Tablet 50 MG PO BID Multivitamin, Min Cmb#25/FA/D3 (Dialyvite Mesic D Tablet) 1 Each Tablet 1 EACH PO QAM Sevelamer Carbonate (Renvela) 800 Mg Tablet 800 MG PO TIDWM WITH MEALS AND SNACKS General Time Seen by MD: 22:30 Chief Complaint Multip medical complaints Hx Obtained From: Patient, Son Arrived By: Wheelchair Onset Occurred: Onset unknown Recent Healthcare: Recent doctor visit Similar Sx Previous: Yes Past Medical History Past Medical History Notes: 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 Clifton negative stress test in 2010 Past Medical History 1. Dyslipidemia. 2. End-stage renal disease. a. Secondary hyperparathyroidism. b. 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 3. Recurrent urinary tract infections. Urine culture (December 25, 2013) yielded E. coli resistant to Unasyn, ampicillin, piperacillin, and quinolones. 4. Clostridium difficile colitis. 5. Healthcare associated pneumonia 6. DVT 7. diverticulitis 8. ileus with prior small bowel obstruction Aortic stenosis. Reports: Diabetes mellitus, GERD, Hyperlipidemia, Hypertension Past Surgical History 1. diverticular perforation requiring laparotomy and small-bowel resection and primary anastomosis with postoperative abscess and prolonged antibiotics. 2. AV fistula 3. patellar fracture repair 4. traumatic finger amputation Reports: Cataract surgery, Cholecystectomy Smoking History Never Smoker Social History Alcohol Use: Denies alcohol use Other Social History: Good social support, Local resident Ambulatory Status Wheelchair Review of Systems +burning sensation in throat and chest, abdominal bloating Full Review of Systems Constitutional: Reports: Chills, Denies: Fever Respiratory: Denies: Non-productive cough GI: Reports: Belching, Constipation, Denies: Vomiting Musculoskeletal: Reports: Back pain Neurologic: Reports: Headache Complete sys rev & neg: except as marked. Physical Exam Vital Signs Vital Signs Date Time Temp Pulse Resp B/P Pulse Ox O2 Delivery O2 Flow Rate FiO2 03/17/17 22:15 36.0 68 18 128/59 100 Room Air Initial VS: Reviewed Head / Eyes: Atraumatic, Normocephalic Cardiovascular: Regular rate & rhythm, Heart sounds normal, Intact distal pulses Skin: Warm, Dry Neurologic: Alert, Oriented, Nonfocal Psychiatric: Mood/affect normal, Behavior normal, Normal thought content General/Constitutional: Awake, Alert Distress / Hydration: Positive: Dehydration mild Neck: Full range of motion JVD up to angle of ear Respiratory / Chest: Breath sounds NL, Breath sounds = bilat, No respiratory distress Veins of chest distended Abdomen: Soft Mildly distended with mild superpubic tenderness Lower Extremity / Pelvis / MS: No edema Interpretation & Diagnostics Lab Results Interpretation Result Diagram: 03/17/17 2311 03/17/17 2311 Test 03/17/17 22:49 03/17/17 23:11 03/17/17 23:12 Urine Color Dark yellow (YELLOW) Urine Appearance Turbid (CLEAR,HAZY) Urine pH 8.0 (5.0-8.0) Urine Specific [place] 1.020 (1.003-1.035) Urine Protein 300mg/dL (NEG,TRACE) Urine Glucose (UA) 100mg/dL (NEGATIVE) Urine Ketones Negativemg/dL (NEGATIVE) Urine Occult Blood Large (NEGATIVE) Urine Nitrite Negative (NEGATIVE) Urine Bilirubin Negative (NEGATIVE) Urine Urobilinogen Normalmg/dL (NORMAL) Urine Leukocyte Esterase Moderate (NEGATIVE) Urine RBC 11-50/hpf (0-2) Urine WBC Packed/hpf (0-5) Urine Epithelial Cells Occasional/hpf (NONE-MOD) Urine Crystals None seen (NONE SEEN) Urine Bacteria Moderate/hpf (NONE-FEW) Urine Hyaline Casts None/lpf (NONE) Urine Granular Casts None seen (NONE SEEN) Urine Waxy Casts None seen (NONE SEEN) Urine Red Blood Cell Casts None seen (NONE SEEN) Urine White Blood Cell Casts None seen (NONE SEEN) Urine Mucus None seen (None Seen) Urine Trichomonas None seen (NONE SEEN) Urine Yeast None (NONE SEEN) Urinalysis Comment None Urine Culture Reflexed Indicated White Blood Count 8.1th/mm3 (3.8-10.1) Red Blood Count 3.63mil/mm3 (3.90-5.20) Hemoglobin 11.4g/dL (12.0-15.6) Hematocrit 35.5% (35.0-46.0) Mean Corpuscular Volume 97.8fL (81-100) Mean Corpuscular Hemoglobin 31.4pg (27.0-35.0) Mean Corpuscular Hemoglobin Concent 32.1% (32.0-37.0) Red Cell Distribution Width 13.1% (12.3-15.4) Platelet Count 203bil/L (150-400) Neutrophils (%) (Auto) 65.4% (40-74) Lymphocytes (%) (Auto) 21.0% (14-46) Monocytes (%) (Auto) 9.7% (4-12) Eosinophils (%) (Auto) 3.2% (0-5) Basophils (%) (Auto) 0.6% (0-3) Prothrombin Time 10.0sec (8.1-12.5) Prothromb Time International Ratio 0.94ratio Sodium Level 131mEq/L (134-144) Potassium Level 3.6mEq/L (3.5-5.2) Chloride Level 88mEq/L (97-108) Carbon Dioxide Level 28mmol/L (18-29) Blood Urea Nitrogen 17mg/dL (8-27) Creatinine 2.41mg/dL (0.57-1.00) Estimat Glomerular Filtration Rate 28mL/min (>59) Glucose Level 331mg/dL (60-99) Calcium Level 9.2mg/dL (8.5-10.1) Phosphorus Level 2.6mg/dL (2.5-4.9) Magnesium Level 1.8mg/dL (1.6-2.6) Total Bilirubin 0.3mg/dL (0.0-1.2) Aspartate Amino Transf (AST/SGOT) 13U/L (0-50) Alanine Aminotransferase (ALT/SGPT) 5U/L (0-32) Alkaline Phosphatase 153U/L (25-165) Troponin T 0.027ug/L (0.0-0.011) Total Protein 7.5g/dL (6.4-8.4) Albumin 3.9g/dL (3.4-5.0) Hold [place] Top Tube Received (Received) ECG Interpretation ECG Interpretation: sinus rate 72 lateral T wave inversions, new since may 2016 Time: 22:54 Interpreted by: ED physician X-Ray Chest Interpretation Chest Xray Interpretation: negative View: Portable, 1 view Interpretation / Wet Read by: Interpret - ED physician Re-Eval/Medical Decision Med Decision/Clinical Course 76-year-old chronic renal failure presents with abdominal bloating and chest and neck discomfort that seems to her to be G reflux. Seems to be really resolving with burps. However, she has changed EKG compared to six months ago, with T-wave inversion and flattening laterally that is new. Troponin is elevated at 0.027 she does have chronic renal failure, and this needs to be trended for interpretation. Admitted now for completion of rule out protocol, consider echocardiography to evaluate wall motion. Time of Eval: 00:45 Re-Evaluation/Progress Note: Discussed plan for admission. Patient understands and agrees with plan. All questions addressed at this time. Consultation : Referral / Consult Name: Nic Sims MD Consulted With: Hospitalist Call Returned at: 01:18 Manager People: Will see patient, Agrees with eval, Agrees with plan, Accepts admit Note: Discussed pt's case. Accepts admit. Counseled Regarding: Diagnosis, Lab results, Need for admission Discharge & Departure Primary Impression: Chest pain, rule out acute myocardial infarction Additional Impressions: UTI (urinary tract infection) Urinary tract infection type: site unspecified Hematuria presence: without hematuria Qualified Code: N39.0 - Urinary tract infection, site not specified ESRD (end stage renal disease) on dialysis Disposition: ADMITTED TO HOSPITAL Discharge Condition All VS Reviewed: Yes Condition: Stable Referrals: NOPCP (PCP) Scribe Attestation Portions of this note were transcribed by Huber Villela. I, Dr. Ayala personally performed the history, physical exam and medical decision-making; I reviewed and confirmed the accuracy of the information in the transcribed note. Signed by: Huber Villela 03/18/2017, 0120 Tyler Ayala MD Mar 17, 2017 22:31 HUBER VILLELA Mar 17, 2017 22:38 Tyler Ayala MD Mar 17, 2017 22:31 HUBER VILLELA Mar 17, 2017 22:38
[2017-03-17 23:00] LABS: APPEARANCE,URINE TURBID (CLEAR,HAZY); COLOR,URINE DARK YELLOW (YELLOW)
[2017-03-17 23:04] LABS: OCCULT BLOOD,URINE LARGE (NEGATIVE); UROBILINOGEN,URINE NORMAL (NORMAL)
[2017-03-17 23:19] LABS: BASOPHILS % (AUTO) 0.6 % (0-3); EOSINOPHILS % (AUTO) 3.2 % (0-5); MONOCYTES % (AUTO) 9.7 % (4-12); Mean Corpuscular Hemoglobin 31.4 pg (27.0-35.0); Mean Corpuscular Volume 97.8 fL (81-100); NEUTROPHILS % (AUTO) 65.4 % (40-74); Platelet Count 203 bil/L (150-400)
[2017-03-17 23:33] LABS: INR 0.94 ratio
[2017-03-17] MEDS ORDERED: levoFLOXacin Inj 500 MG in IV Premix 1 EACH IV ONE (23:35)
[2017-03-17 23:37] LABS: TROPONIN T 0.027 ug/L (0.0-0.011)
[2017-03-17 23:48] LABS: Magnesium 1.8 mg/dL (1.6-2.6); Phosphorus 2.6 mg/dL (2.5-4.9)
[2017-03-18] VITALS (9 sets, daily range): BP systolic 120–149; BP diastolic 55–66; PULSE 70–75; RESP 16–20; O2SAT 96–100
[2017-03-18] MEDS ORDERED: Ondansetron 2 mg/mL 2 mL Inj IVPUSH PRN ×2 (02:05→02:25)
[2017-03-18] MEDS ORDERED: Senna-Docusate 8.6-50 mg Tablet PO PRN (02:25)
[2017-03-18] MEDS ORDERED: Polyethylene Glycol (PEG) 17 Gm Powder PO PRN (02:25)
[2017-03-18] MEDS ORDERED: Alum-Mag Hydrox-Simeth 30 mL Suspension PO PRN (02:25)
[2017-03-18] MEDS ORDERED: Atropine 1 mg/10 mL (Code) Syringe IVPUSH PRN (02:25)
[2017-03-18] MEDS: 0.9% Sodium Chloride 1,000 ML IV SCH ×2 (03:18→17:05)
[2017-03-18] MEDS ORDERED: Dextrose 10% 250 ML IV PRN (03:30)
[2017-03-18] MEDS ORDERED: Glucose 40% Oral Gel 15 Gm Tube PO PRN ×2 (03:30→03:55)
--- NOTE | 2017-03-18 03:31 | PCM.HPMED ---
Subjective Date of Service Mar 18, 2017 Primary Provider: Admitting Physician: Nic Sims MD Primary Care Physician: Noprylie Attending Physician: Nic Sims MD Chief Complaint: Chest pain, chills History of Present Illness: Patient is a 76 year old Serbian speaking female with a hx of ESRD on dialysis, HTN, DM, and recurrent UTI who presents to the ED complaining of chest pain. She describes a burning sensation in her chest and throat like acid. Her pain does not seem to be related to activity but she is in her wheelchair most of the time. She states this pain has been intermittent for 2 months, but worsened over the last 2 days. She states it is improved now on admission and is 0/10, when it was 8-9/10 before. She also reports abdominal bloating, back pain, dry mouth, chills, sweats, mild headache, and chronic constipation. She had a hard BM this morning followed my a normal BM later today but had not had a BM for 3- 4 days prior. She has had similar symptoms previously and her son reports that these are the same symptoms she has with a kidney infection. Her symptoms are improved with belching. She denies dysuria, cough, vomiting, fever, or any other symptoms. She does not make urine at baseline and has a hx of frequent kidney infections. In the ED, BP was 143/62. WBC was 8.1. Na 131, Cl 88, BUN 17, Cr 2.41, glucose 331, Trop 0.027. UA showed packed WBCs, 11-50 RBC, large occult blood, negative nitrite, moderate leukocyte esterase, moderate bacteria. Client Renewal Specialist: Dr. Clifton Negative stress test in 2010 Review of Systems: Comprehensive review of systems conducted and was negative except for the pertinent positives listed above. Allergies Coded Allergies: cefazolin sodium (Verified Allergy, Unknown, NO ADR WITH CEFTRIAXONE IN ER , 01/04/17) morphine (Verified Adverse Reaction, Intermediate, Hallucinations, 01/04/17 ) Family reported morphine caused hallucination Cephalosporins (Verified Adverse Reaction, Unknown, 01/11/17) causes confusion Home Medications Amlodipine 10 mg daily Aspirin 325 mg daily Calcium acetate 667 mg TID Cinacalcet 60 mg BID Clonidine 0.2 mg patch once weekly Folate 5 mg daily Hydralazine 50 mg TID Lantus 5-10 U qhs Humalog 1-12 U TID Isosorbide mononitrate ER 120 mg daily Labetalol 200 mg TID Sevelamer 800 mg TID PMH Hypertension Hyperlipidemia Diabetes mellitus GERD End-stage renal disease. a. Secondary hyperparathyroidism. b. 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 Recurrent urinary tract infections. Urine culture (December 25, 2013) yielded E. coli resistant to Unasyn, ampicillin, piperacillin, and quinolones. Clostridium difficile colitis. Healthcare associated pneumonia DVT Diverticulitis Ileus with prior small bowel obstruction Aortic stenosis. Surgical History Diverticular perforation requiring laparotomy and small-bowel resection and primary anastomosis with postoperative abscess and prolonged antibiotics. AV fistula Patellar fracture repair Traumatic finger amputation Cataract surgery Cholecystectomy Family History Mother: [place], Diabetes Father: Diabetes Brother: Diabetes Social History Hx Alcohol Use: No Hx Substance Use: No Hx Tobacco Use: No Smoking Status: Never Smoker Exam Vital Signs Vital Sign - Last Date Time Temp Pulse Resp B/P Pulse Ox O2 Delivery O2 Flow Rate FiO2 03/18/17 02:34 36.9 72 20 143/62 97 Room Air Exam General: Alert, Oriented X3, Cooperative, No acute distress. Serbian speaking only. Head: Normocephalic, atraumatic. External ears normal. Eyes: PERRLA, EOMI. Anicteric sclerae. Mouth: Mouth normal, Mucous membranes dry Neck: Neck supple with full range of motion. Chest& Lungs: Clear to auscultation bilaterally with no crackles, wheezes, or rhonchi. Cardiovascular: Regular rate/rhythm, Normal S1, Normal S2, No murmurs/rubs/ gallops Abdomen: Mildly distended with mild superpubic tenderness, No masses, Normoactive bowel tones, Soft Musculoskeletal: Normal range of motion Extremities: No cyanosis/clubbing/edema bilaterally Neurological: Grossly neurologically intact. Normal speech Lab and Diagnostics Result Diagram: 03/17/17 2311 03/17/17 2311 Assessment & Plan Patient is a 76 year old Serbian speaking female with a hx of ESRD on dialysis, HTN, DM, and recurrent UTI who presents to the ED complaining of chest pain. Acute chest pain. Present on admission. - She reports a burning pain in her chest and throat. Given her history of GERD , it certainly seems like it may be symptoms of GERD. However, she has high risk for cardiovascular disease given her ESRD and DM. Troponin was mildly elevated, but in the context of ESRD. EKG showed sinus rate of 72 with lateral T wave inversions in II, III, aVF, new since May 2016. Given her history of ESRD, the decision for coronary angiography should be discussed with Cardiology. Will hold of on heparin gtt for now, given her atypical chest pain and ESRD. Further discussion with Cardiology in AM. - NPO after midnight - Cardiology consult in AM - Aspirin and Plavix given - Atorvastatin 40 mg daily started - Protonix 40 mg daily - Nitro PRN chest pain - Pt has hallucinations with morphine; will hold morphine PRN. Urinary tract infection, acute. - In the context of recurrent UTIs in a non-urine producing pt with ESRD. Hx of E coli resistant to quinolones, piperacillin, ampicillin, and Unasyn. Pt allergic to cephalosporins but not to ceftriaxone. - Ceftriaxone 2g daily Hypertension, chronic. - Pt has significant history of HTN, on an extensive antihypertensive medication regimen, likely secondary to renal disease. Confirmed medications with family, nurse, and discussed with pharmacy. BP 143/62 today - Continue amlodipine, hydralazine, isosorbide mononitrate, labetalol - Pt may not be taking metoprolol anymore - discontinued metoprolol - Pt currently has clonidine patch on - unsure how long. Holding clonidine for now. Diabetes mellitus - Glucose 331 on admit. - A1c ordered - Lantus 10 U qhs - Humalog medium dose correctional scale End-stage renal disease. - Continue cinacalcet, calcium acetate, Sevelamer - Nephrology consult in AM for dialysis Other Chronic Conditions Hyperlipidemia Recurrent urinary tract infections. Urine culture (December 25, 2013) yielded E. coli resistant to Unasyn, ampicillin, piperacillin, and quinolones. Clostridium difficile colitis. Healthcare associated pneumonia DVT Diverticulitis Ileus with prior small bowel obstruction Aortic stenosis. GERD - Bowel regimen as needed - Antiemetic as needed Patient is admitted under inpatient status with expected length of stay greater than 2 midnights due to severity of presenting symptoms, risk of adverse event, and complexity of treatment plan. Mynor Weiner Mar 18, 2017 03:31
--- NOTE | 2017-03-18 03:45 | NUR ---
Admit Patient admitted to room 3027 at 0220 from ED, accompanied by her son. Korean-speaking only, son helped with translation. Denies pain at time of admit. Telemetry connected, vital signs stable. Bed alarm on for safety. Oriented to room, call light, plan of care, policies, intentional rounding. Med list entered with verification from bottles and son's report. White board updated. Patient is to be NPO.
[2017-03-18] MEDS: cefTRIAXone Inj 2,000 MG in Dextrose 5% Minibag Plus 50 ML IV SCH (04:06)
[2017-03-18] MEDS: Insulin GLARgine 100 Unit/mL Syringe SUBQ SCH ×2 (04:38→20:48)
[2017-03-18 07:27] LABS: BASOPHILS % (AUTO) 0.6 % (0-3); EOSINOPHILS % (AUTO) 3.3 % (0-5); Mean Corpuscular Hemoglobin 31.4 pg (27.0-35.0); Platelet Count 179 bil/L (150-400)
[2017-03-18] MEDS ORDERED: Pantoprazole 40 mg ER24 Tablet PO SCH (07:30)
[2017-03-18] MEDS ORDERED: Insulin LISPRO 300 Unit/3 mL Inj SUBQ SCH ×2 (07:30→08:00)
[2017-03-18] MEDS: Insulin LISPRO 300 Unit/3 mL Inj SUBQ SCH ×4 (08:00→20:49)
[2017-03-18] MEDS: Sodium Chloride LOK Flush 10 mL Syringe IVFLUSH SCH ×3 (08:30→21:40)
--- NOTE | 2017-03-18 08:30 | DRSVH ---
PROCEDURE: X-RAY CHEST ONE VIEW, PORTABLE ([id number]) INDICATIONS: chest pain TECHNIQUE: One view of the chest was acquired. COMPARISON: [facility], CR, CHEST 2VW, 04/22/2014, 17:50. [facility], CT, CT ANGIO CHEST PE, 10/05/2015, 20:43. [facility], CR, XR CHEST 1VW (PORTABLE), 01/13/2017, 1 3:10. FINDINGS: Surgical changes and devices: None. Lungs and pleura: No pleural effusions or pneumothorax. Lungs are clear. Subcentimeter nodular opa city is seen involving the right lower lobe unchanged dating back to 2013. Mediastinum: Mediastinal contours appear normal. Heart size is normal. Bones and chest wall: No suspicious bony lesions. Overlying soft tissues appear unremarkable. IMPRESSION: No acute cardiopulmonary disease. Dictated by: Zhou Lino RRA Interpreted: Ca Kapadia MD on 03/18/2017 at 8:28 Transcribed by: SANDEEP on 03/18/2017 at 8:29 Approved by: Ca Kapadia MD, PhD on 03/18/2017 at 10:34
[2017-03-18] MEDS: Isosorbide Mononitrate 60 mg ER24 Tablet PO SCH (09:02)
[2017-03-18] MEDS: Pantoprazole 40 mg ER24 Tablet PO SCH (09:03)
[2017-03-18] MEDS: Heparin 5,000 Unit/mL Inj SUBQ SCH ×2 (09:06→17:05)
--- NOTE | 2017-03-18 12:40 | NUR ---
Blood Glucose This am BG was 132 and I with held the am 5 unit Nutritional dose of insulin due to the pt being NPO and had just received Lantus 4 ours prior. Rechecked BG at 12 and BG was 85. With held 5 unit nutritional dose again, gave apple juice, lunch has been ordered and will recheck BG in an hour after eating. Will inform MD and see if changes need to be made.
--- NOTE | 2017-03-18 15:31 | CONS ---
[address] [address] CONSULTATION REPORT PATIENT: JANET BELLAMY : 1940 MR#: [id number] ADMIT: 03/18/2017 JOB ID: [id number] NEPHROLOGY CONSULTATION: DATE OF SERVICE: 03/18/2017 REQUESTING PHYSICIAN: Mynor Weiner DO REASON FOR CONSULTATION: Management of end-stage renal disease. CHIEF COMPLAINT: Chest pain. PRESENT ILLNESS: This is a 76-year-old, lady with significant past medical history of end-stage renal disease, on hemodialysis every Tuesday, , Tuesday, type 2 diabetes, hypertension, recurrent UTI, history of C. diff colitis, who presented to the hospital with a complaint of chest pain. The patient reported that she has had burning sensation at the substernal area. She reports history of acid reflux. The patient reports being constipated; last bowel movement probably at least four days ago. Her heartburn symptoms has gotten worse. Therefore, she came to the hospital for further investigation. She reports no history of cough. No chest pressure. No nausea or vomiting. No diarrhea. No fever. She had some chills without subjective fever. The initial workup showed packed WBCs in the urinalysis. She does not have leukocytosis. Her last dialysis was yesterday. Her current BMP did not show any evidence of hyperkalemia or uremia. She is a patient of Dr. Clifton and Dr. Farrell. She is dialyzed every Tuesday, , Tuesday at the [facility]. PAST MEDICAL HISTORY: 1. End-stage renal disease, on hemodialysis every Tuesday, , Tuesday. 2. Type 2 diabetes with diabetic nephropathy. 3. History of hypertension with hypertensive nephrosclerosis. 4. History of recurrent UTI. 5. History of C. diff colitis. 6. Renal osteodystrophy. 7. Anemia of chronic kidney disease. 8. History of healthcare-associated pneumonia. 9. Diverticulitis and diverticulosis. 10. Aortic stenosis. 11. Dyslipidemia. 12. History of partial small-bowel obstruction. SURGICAL HISTORY: 1. Diverticular perforation requiring laparotomy and small-bowel resection and primary anastomosis with postoperative abscess and prolonged antibiotics in 2013. 2. AV fistula creation. 3. Patella fracture with repair. 4. Traumatic finger amputations. 5. Cholecystectomy. FAMILY HISTORY: Positive for diabetes. SOCIAL HISTORY: Denies current use of alcohol, tobacco, illicit drugs. ALLERGIES: 1. CEPHALOSPORIN. 2. CEFAZOLIN. 3. MORPHINE. REVIEW OF SYSTEMS: Fourteen point review of systems was performed. PHYSICAL EXAMINATION: Vitals: Temperature 36.3, pulse 72, respiratory rate 18, blood pressure 120/56, O2 sat 96% on room air. General appearance: Awake, alert, oriented x3. In no acute distress. HEENT: No pallor. No jaundice. No JVD. No lymphadenopathy. No thyroid enlargement. Heart: Regular rhythm. Normal S1, S2. Systolic murmur noted. No rubs. No gallops. Lungs: Clear to auscultation bilaterally. No wheezing. No rhonchi. Good air entry bilaterally. No accessory muscle use. Abdomen is soft. Mild tenderness on the suprapubic area. No rebound. No guarding. Active bowel sounds. Extremities: No edema, cyanosis or clubbing of fingers. Left AV fistula noted with good thrill and bruit. LABORATORY DATA: Sodium 135, potassium 3.8, chloride 93, bicarb 26, BUN 18, creatinine 2.78. Glucose 132. Calcium 8.0. Troponin 0.029. Hemoglobin 10.8, WBC 7.1. ASSESSMENT: 1. Atypical chest pain. 2. End-stage renal disease, on hemodialysis every Tuesday, , Tuesday. 3. Pyuria suspected urinary tract infection, pending culture. 4. Hypertension with hypertensive nephrosclerosis. 5. Diabetes with diabetic nephropathy. PLAN: Per renal standpoint, there is no emergency dialysis indicated at the moment. We will schedule dialysis for her tomorrow morning. The rest of management as per primary team. Thank you for allowing me to participate in the care of your patient. We will monitor along with you.
--- NOTE | 2017-03-18 17:06 | DRSVH ---
[facility] [address] [place] [address] Echocardiogram Report Name: JANET AJ Study Date: 03/18/2017 Height: 64 in Hospital Exam Location: [facility] Weight: 134 lb Gender: Female BSA: 1.6 m2 : 1940 Age: 76 yrs BP: 138/61 mmHg Reason For Study: Chest pain Ordering Physician: HOSPITALIST [facility] Performed By: Mara Lancaster Referring Physician: BIPIN PEREZ Interpretation Summary Mild concentric left ventricular hypertrophy with ejection fraction 65-70%. Borderline left atrial enlargement. Mild aortic stenosis. Moderate mitral annular calcification. Comparison is made with the echocardiogram of 03/04/2014, aortic stenosis and mitral annular calcification have progressed. Procedure: A two-dimensional transthoracic echocardiogram with color flow and Doppler was performed. The study quality was technically adequate. Comparison is made with the echocardiogram of 03/04/2014. The patient was in normal sinus rhythm during the exam. Left Ventricle: The left ventricle is normal in size. There is mild concentric left ventricular hypertrophy. The ejection fraction is estimated to be 65-70%. There are no focal wall motion abnormalities. Spectral Doppler of the mitral valve shows a normal E/A wave ratio. Right Ventricle: The right ventricle is normal in size and function. Atria: Borderline left atrial enlargement. Right atrial size is normal. The interatrial septum is intact with no evidence for an atrial septal defect. Mitral Valve: The mitral valve leaflets appear mildly thickened, but open well. There is moderate mitral annular calcification. The mitral valve mean gradient is 3.5 mmHg. There is trace mitral regurgitation. Aortic Valve: The aortic valve is trileaflet. The aortic valve is mildly calcified. There is mild aortic stenosis. No aortic regurgitation is present. Tricuspid Valve: The tricuspid valve leaflets are thin and pliable. There is trace tricuspid regurgitation. The right ventricular systolic pressure is estimated at 35 mmHg assuming a right atrial pressure of 15 mm Hg. Pulmonic Valve: The pulmonic valve is normal in structure and function. There is a trace or physiologic amount of pulmonic regurgitation. Great Vessels: The aortic root is normal size. The ascending aorta is normal in size. The IVC is dilated (diameter is greater than 2.1 cm) and it collapses less than 50% with a sniff. This suggests a high right atrial pressure of 15 mm Hg. Pericardium/ Pleura There is no pericardial effusion. There is no pleural effusion. MMode/2D Measurements & Calculations LVIDd: 4.5 cm RA long axis LVOT diam LVIDs: 2.1 cm LA A2 area: 16.8 cm FS: 53.4 % LA A4 area: 22.0 cm RA area asc Aorta IVSd: 1.1 cm LA length (vol): 5.5 cm Diam: 3.3 cm LVPWd: 1.2 cm LA vol: 56.5 ml : 11.0 cm LA vol index RA vol: 21.7 ml RA : 13.2 mm2 IVC diam: 2.1 cm LV cervantes. diameter/BSA LV sys. diameter/BSA TAPSE: 2.5 cm (cm/m^2): 2.7 (cm/m^2): 1.3 Doppler Measurements & Calculations Ao V2 max: 207.8 cm/sec MV E max yo MV E/A: 1.3 TR max yo Ao max P.3 mmHg : 127.9 cm/sec : 227.7 cm/sec Ao mean P.4 mmHg MV A max yo TR max PG LVOT Max Yo : 99.9 cm/sec : 20.8 mmHg : 136.5 cm/sec PA V2 max MVA(VTI): 2.8 cm2 : 81.9 cm/sec FLAKITA(I,D): 2.2 cm PA mean PG sev ratio: 0.65 : 1.4 mmHg MV V2 mean: 87.9 cm/sec Ao V2 mean LV V1 max PG PA V2 mean MV mean P.5 mmHg : 144.5 cm/sec : 56.3 cm/sec MV V2 VTI: 42.1 cm Ao V2 VTI: 53.4 cm LV V1 VTI MV dec time: 0.20 sec : 34.6 cm FLAKITA(V,D): 2.3 cm2 FLAKITA indexed to BSA (cm^2/m^2): 1.4 Electronically signed by: Josh Franklin on Reading Physician:03/18/2017 05:05 PM
--- NOTE | 2017-03-18 17:40 | NUR ---
spiritual care: pt request pt received eucharistic visitor from [facility],
[2017-03-18] MEDS ORDERED: Insulin GLARgine 100 Unit/mL Syringe SUBQ SCH ×3 (21:00)
[2017-03-19] VITALS (9 sets, daily range): BP systolic 132–188; BP diastolic 62–81; PULSE 70–91; RESP 16–18; O2SAT 94–100
[2017-03-19] MEDS: Heparin 5,000 Unit/mL Inj SUBQ SCH ×3 (00:30→17:14)
[2017-03-19] MEDS: 0.9% Sodium Chloride 1,000 ML IV SCH (03:24)
[2017-03-19] MEDS: cefTRIAXone Inj 2,000 MG in Dextrose 5% Minibag Plus 50 ML IV SCH (03:29)
--- NOTE | 2017-03-19 06:45 | NUR ---
hypoglycemia Pt was c/o SOB, chest pain, and choking in the beginning of shift. Pt is noted to be anxious and diaphoretic. VSS, BG was 67. Pt was able to drink 120mL of apple juice and couldn't drink further due to being full. Pt reported feeling better but her BG when rechecked was 65. 25mL of D50 given IV. BG went up to 137. HS lantus was held due to BG being 105 and dropping. had a couple of toast at HS. BG was monitored closely. NPO since midnight for stress test. [place] Protection Maintainer was used multiple times tonight to explain and remind pt of the plan of care. bed alarm on for safety.
[2017-03-19] MEDS: Insulin LISPRO 300 Unit/3 mL Inj SUBQ SCH ×4 (07:30→22:00)
[2017-03-19] MEDS: Pantoprazole 40 mg ER24 Tablet PO SCH (08:30)
[2017-03-19] MEDS: Sodium Chloride LOK Flush 10 mL Syringe IVFLUSH SCH ×2 (08:30→16:11)
[2017-03-19] MEDS: Isosorbide Mononitrate 60 mg ER24 Tablet PO SCH (09:12)
--- NOTE | 2017-03-19 10:36 | NUR ---
off unit Pt off unit to stress test at 1030. TELE off, nuclear medical tech aware. Coat Joiner at bedside to explain plan to pt who reports understanding and agrees. Addendum: 03/19/17 at 1137 by DAKOTA MERINO RN Laura from [facility] called, pt has completed the stress test and will be going directly to [facility] for dialysis, not returning to unit first.
--- NOTE | 2017-03-19 12:30 | PCM.PNNEPH ---
Subjective Date of Service Mar 19, 2017 Subjective She is seen during HD today. She offered no new complaints. She is comfortably lying down, no CP/SOB. Exam Vital Signs Vital Sign - Last Date Time Temp Pulse Resp B/P Pulse Ox O2 Delivery O2 Flow Rate FiO2 03/19/17 09:38 36.8 83 18 153/62 94 Room Air Intake and Output 03/18/17 03/18/17 03/19/17 Cumulative From/Thru 15:00 23:00 07:00 03/17/17 22:15 - 03/19/17 06:31 Intake Total 1504 ml 726 ml 2230 ml Output Total 0 ml 0 ml 0 ml Balance 1504 ml 726 ml 2230 ml Intake Oral 400 ml 400 ml 800 ml IV Total 1104 ml 326 ml 1430 ml Output Urine Total 0 ml 0 ml 0 ml # Bowel Movements 0 0 Exam General appearance: Awake, alert, oriented x3. In no acute distress. HEENT: No pallor. No jaundice. No JVD. No lymphadenopathy. No thyroid enlargement. Heart: Regular rhythm. Normal S1, S2. Systolic murmur noted. No rubs. No gallops. Lungs: Clear to auscultation bilaterally. No wheezing. No rhonchi. Good air entry bilaterally. No accessory muscle use. Abdomen is soft. Mild tenderness on the suprapubic area. No rebound. No guarding. Active bowel sounds. Extremities: No edema, cyanosis or clubbing of fingers. Left AV fistula noted with good thrill and bruit. Lab and Diagnostics Result Diagram: 03/18/1747 03/18/1747 Plan Impression 1. Atypical chest pain. 2. End-stage renal disease, on hemodialysis every Tuesday, , Tuesday. 3.5 hr, 3K, 35HCO3, UF 1L. Revaclear, DFR 600, BFR 400, AVF. 3. E.coli UTI. 4. Hypertension with hypertensive nephrosclerosis. 5. Diabetes with diabetic nephropathy. 6. Renal osteodystrophy. PLAN: Next HD in am. Follow cardiology rec. Continue her BP meds, PO4 binders and cinacalcet. Sravani Santos MD Mar 19, 2017 12:30
--- NOTE | 2017-03-19 15:25 | NUR ---
Social Work-attempted assessment: Data:EMR reviewed. Pt is a 76 y/o female who was admitted on 03/18/17 for CP R/O MO per H&P. Pt's insurance is [facility] and PCP is not listed. EMR reviewed. Pt's readmission score is 3. SW attempted to see pt and complete assessment, but pt out of the room at this time. SW to follow up later tomorrow to complete Assessment. SW will continue to follow. Assessment:Pt who is independent at baseline. Plan:Pt to discharge home when medically stable. SW to follow up tomorrow for assessment. SW will continue to follow. PIETER Asif
--- NOTE | 2017-03-19 15:39 | NUR ---
Dialysis note 3.5 hr HD tx 1000ml net UF removed 2 15 g needles to JENNIFER fistula QB 500 See DTR for complete vitals trends Pt rested comfortably and stable thru tx Report given and pt returned to floor stable.
--- NOTE | 2017-03-19 16:11 | NUR ---
Back on unit Pt back on unit from dialysis. Denies any pain/discomfort. IV flushing easily. Blood sugar 130. BP elevated, afternoon BP meds given. Bed in lowest, locked position.
--- NOTE | 2017-03-19 17:24 | PCM.PNMED ---
Subjective Date of Service Mar 19, 2017 Subjective reports mild frontal headache after her dialysis earlier today. Denies any chest pain, SOB. Exam Vital Signs Vital Sign - Last Date Time Temp Pulse Resp B/P Pulse Ox O2 Delivery O2 Flow Rate FiO2 03/19/17 16:02 36.8 91 18 188/81 95 Room Air Intake and Output 03/18/17 03/18/17 03/19/17 Cumulative From/Thru 15:00 23:00 07:00 03/17/17 22:15 - 03/19/17 06:31 Intake Total 1504 ml 726 ml 2230 ml Output Total 0 ml 0 ml 0 ml Balance 1504 ml 726 ml 2230 ml Intake Oral 400 ml 400 ml 800 ml IV Total 1104 ml 326 ml 1430 ml Output Urine Total 0 ml 0 ml 0 ml # Bowel Movements 0 0 General: Alert, Cooperative, No Acute Distress Head: Normal Eyes: PERRLA, EOMI, Scleral Anicteric Nose: Mucous Membr Moist/[place] Mouth: Mucous Membr Moist/[place] Neck: Supple Chest & Lungs: Chest Wall Normal, Clear to auscultation & percussion Cardiovascular: Regular Rate/Rhythm Abdomen: Tender (mostly mid abd. no rebound. no guarding), Non-distended, Normoactive bowel tones, Soft Extremities: No cyanosis/clubbing/edma bilat Neurological: Grossly Neurologically Intact, Normal Speech Additional Information: Psych: Normal affect IVs and Medications Medications Reviewed: Medications were reviewed in detail Lab and Diagnostics Result Diagram: 03/18/17 0647 03/18/17 0647 X-Rays, CTs and MRIs Date of Service: 03/17/17 2241 PROCEDURE: X-RAY CHEST ONE VIEW, PORTABLE ([id number]) IMPRESSION: No acute cardiopulmonary disease. Dictated by: Zhou Lino RRA Interpreted: Ca Kapadia MD on 03/18/2017 at 8:28 Transcribed by: SANDEEP on 03/18/2017 at 8:29 Approved by: Ca Kapadia MD, PhD on 03/18/2017 at 10:34 Cardiac Echo Impressions Date of Service: 03/18/17 0800 Echocardiogram Report Interpretation Summary Mild concentric left ventricular hypertrophy with ejection fraction 65-70%. Borderline left atrial enlargement. Mild aortic stenosis. Moderate mitral annular calcification. Comparison is made with the echocardiogram of 03/04/2014, aortic stenosis and mitral annular calcification have progressed. Electronically signed by: Josh Franklin on Reading Physician:03/18/2017 05:05 PM Assessment & Plan 76 year old Turkish speaking female with a hx of ESRD on dialysis, HTN, DM, and recurrent UTI who presents to the ED complaining of chest pain. # Acute atypical chest pain. Present on admission. Resolved - She reports a burning pain in her chest and throat. - Echo without any focal wall motion abnormality - Trop staying stable despite ESRD - Followup stress test - Aspirin and Plavix - Atorvastatin 40 mg daily - Protonix 40 mg daily - Nitro PRN chest pain - Consider cardiology consult pending stress test finding # Acute urinary tract infection, present on admission. - In the context of recurrent UTIs in a non-urine producing pt with ESRD. - Pt allergic to cephalosporins but not to ceftriaxone. - Ceftriaxone 2g daily # Hypertension, chronic. Poorly controlled - Pt has significant history of HTN, on an extensive antihypertensive medication regimen, likely secondary to renal disease. - Continue amlodipine, hydralazine, isosorbide mononitrate, labetalol - Pt may not be taking metoprolol anymore - discontinued metoprolol - Resume Clonidine patch # Acute abdominal pain. Unclear if it was present on admission or not - CT abdomen - supportive care for now # Diabetes mellitus - Lantus 10 U qhs - Humalog medium dose correctional scale # End-stage renal disease. - Appreciate nephrology consult. Will followup with recs - Continue cinacalcet, calcium acetate, Sevelamer - Further HD per nephrology Other Chronic Conditions # Hyperlipidemia # Ileus with prior small bowel obstruction # Aortic stenosis. # GERD Dispo: 1-2 days Abdi Shah Mar 19, 2017 17:24 Healthcare associated pneumonia DVT Diverticulitis Ileus with prior small bowel obstruction Aortic stenosis. GERD - Bowel regimen as needed - Antiemetic as needed Patient is admitted under inpatient status with expected length of stay greater than 2 midnights due to severity of presenting symptoms, risk of adverse event, and complexity of treatment plan. Abdi Shah Mar 19, 2017 17:24
--- NOTE | 2017-03-19 17:57 | NUR ---
Activity/pain/blood sugars Pt has been transferring from bed-w/c and vice versa with 1 person assist, tolerating activity well. Via jukebox checker pt states, "I can't walk but I can stand." Pt is able to take a few steps. One c/o PAYNE following dialysis, PRN acetaminophen given with effective results. AM blood sugar 130, pt off unit to stress test and dialysis until 1600. Upon return, blood sugar once again 130. Communication done via iPad and jukebox checker. Bed in lowest, locked position and call light in reach.
--- NOTE | 2017-03-19 21:05 | NUR ---
PT TO CT Pt transported to CT via wheelchair at 2099. Pt saline locked. Pt on RA. Telemetry removed, air sampling and monitoring notified. Await pts return. Addendum: 03/19/17 at 2126 by NIKI MENDENHALL RN Pt arrived back from CT @ 2124.
--- NOTE | 2017-03-19 22:46 | DRSVH ---
PROCEDURE: CT ABDOMEN AND PELVIS WITH CONTRAST ([id number]) INDICATIONS: Abdominal pain TECHNIQUE: After the administration of oral and intravenous contrast, 5 mm thick sections acquired from the diap hragms to the symphysis. 5 mm thick coronal and sagittal reformats were performed. For radiation do se reduction, the following was used: automated exposure control, adjustment of mA and/or kV accordi ng to patient size. COMPARISON: Pancreas [facility], CT, ABD/PELVIS W/O CON (PNL), 04/15/2014, 18:37. [facility], CT, CT ABD PELVIS W CON, 10/05/2015, 20:43. FINDINGS: Image quality: Excellent. ABDOMEN: Lung bases: There are small to moderate-sized bilateral pleural effusions with associated compressive atelectasis. A small 5 mm nodule is demonstrated in the right lower lobe, new from the prior study. Heart size is normal overall with left atrial enlargement. There is prominent coronary arterial va scular calcification. Solid organs: Liver and spleen are normal in size and enhancement. The gallbladder is surgically ab sent. There is intra-and extra hepatic biliary ductal dilatation redemonstrated, with the common stephanie e duct measuring up to approximately 9 mm distally. No calcified common duct stones identified. A s mall cystic lesion anteriorly in the body of the pancreas measuring up to 9 mm appear stable in size compared to the prior study. No abnormal dilatation of the pancreatic duct. There is thickening of the general glands bilaterally. The kidneys are atrophic in size with numerous cysts bilaterally. N o hydronephrosis. Peritoneum and bowel: Stomach and small bowel loops are normal in caliber and wall thickness. There is moderate colonic stool distention distally in the rectum which may reflect constipation or fecal impaction. No free fluid or air. Nodes and vessels: No retroperitoneal or mesenteric adenopathy. Aorta and inferior vena cava are no rmal in caliber. Miscellaneous: No ventral hernias. PELVIS: Genitourinary: There is prominent concentric bladder wall thickening. Miscellaneous: No inguinal hernias or adenopathy. Bones: No suspicious bony lesions. No vertebral body compression fractures. IMPRESSION: 1. Concentric bladder wall thickening consistent with a nonspecific cystitis. Recommend correlation with urinalysis. 2. Moderate plaque still distention distally most prominent in the rectum may reflect constipation o r fecal impaction. No evidence of bowel obstruction. 3. Intra-and extrahepatic biliary dilatation redemonstrated likely related to prior cholecystectomy. 4. Stable appearance of a small cystic lesion in the body of the pancreas most likely representing a small sidebranch IPMN. 5. Small to moderate size bilateral pleural effusions with associated compressive atelectasis. Dictated by: Brice Araujo M.D. on 03/19/2017 at 22:36 Approved by: Brice Araujo M.D. on 03/19/2017 at 22:44
[2017-03-19] MEDS: Insulin GLARgine 100 Unit/mL Syringe SUBQ SCH (22:51)
[2017-03-20] MEDS: Sodium Chloride LOK Flush 10 mL Syringe IVFLUSH SCH ×2 (00:32→08:58)
[2017-03-20] MEDS: Heparin 5,000 Unit/mL Inj SUBQ SCH ×2 (00:33→08:56)
[2017-03-20] MEDS: cefTRIAXone Inj 2,000 MG in Dextrose 5% Minibag Plus 50 ML IV SCH (03:08)
[2017-03-20 04:26] VITALS: BP 174/73; PULSE 81; RESP 16; O2SAT 95
--- NOTE | 2017-03-20 04:33 | NUR ---
GI During physical assessment, pts abdomen rounded. RN asked pt when her last BM was, pt states, "the day before yesterday". Pt states that she does get constipated, but does not feel that way at this time. Pt given prn dose of senna. Later in shift, pt did have bowel movement. Continue to monitor. Call light in reach. Bed alarm on. Intentional rounding.
[2017-03-20 06:10] LABS: Mean Corpuscular Hemoglobin 31.9 pg (27.0-35.0); Mean Corpuscular Volume 97.8 fL (81-100)
[2017-03-20] MEDS: Insulin LISPRO 300 Unit/3 mL Inj SUBQ SCH ×2 (08:54→11:56)
[2017-03-20] MEDS: Isosorbide Mononitrate 60 mg ER24 Tablet PO SCH (08:56)
[2017-03-20 08:58] VITALS: PULSE 80
[2017-03-20] MEDS: Pantoprazole 40 mg ER24 Tablet PO SCH (08:58)
[2017-03-20 09:24] VITALS: BP 185/77; PULSE 80; RESP 18; O2SAT 96
[2017-03-20 11:18] VITALS: BP 118/81; PULSE 67; RESP 18; O2SAT 96
[2017-03-20] MEDS ORDERED: PANT20T PO (12:12)
[2017-03-20] MEDS ORDERED: CEFP200T3 PO (12:20)
--- NOTE | 2017-03-20 12:24 | PCM.DIMED ---
Discharge Instructions Date of Service Mar 20, 2017 Dates of Hospitalization Mar 18, 2017 at 01:45 Discharge Diagnosis Discharge Diagnosis # Acute atypical chest pain. Present on admission. Resolved - Cardiac workup including Echocardiogram and stress test negative and unremarkable # Acute E. Coli urinary tract infection, present on admission. # Hypertension, chronic. # Diabetes mellitus # End-stage renal disease on hemodialysis. Other Chronic Conditions # Hyperlipidemia # Aortic stenosis. # GERD Diet Discharge Diet: Low fat, Low Sodium, Heart Healthy, Diabetic Activity Discharge Activity: No restrictions Call your provider Call your provider for: Fever or Chills, Shortness of breath, Bleeding, Chest pain, Vomitting Patient Instructions Patient Instructions Seek immediate medical attention if any new or worsening signs or symptoms occur. Follow-up plan 1. Followup with primary care provider within one week 2. Followup with hemodialysis as previously scheduled 3. Followup with your rn eligibility within one week Follow-up Provider: Halima Seymour MD Follow-up with PCP in: Other ( within one week) Provider: Trina Farrell MD Follow-up in: Other ( within one week) Abdi Shah Mar 20, 2017 12:24
--- NOTE | 2017-03-20 12:27 | NUR ---
Social Work- Initial Assessment/discharge: Data: See initial assessment. Pt is a 76 y/o female admitted for UTI per H&P. Pt's PCP is not listed. Pt's insurance is [facility] Medicaid. EMR reviewed, Readmit score is 3-high risk. SW met with pt and family at bedside, SW role explained. Pt lives at home with son in a single level home. Pt does not drive and uses a fww at baseline. Pt has no HH or SNF history. Pt has no buttermaker care insurance or VA benefits. Pt has not completed DPOA/ advanced directive, declining information. Pt goes to dialysis T/TH/ Sat. Pt is medically stable for discharge home today. Pt's family to provide transport home. All updated and agreeable to plan. Assessment: Pt who is independent at baseline. Plan: Pt to discharge home today via POV. Pt's family to provide support at home. Pt to continue with dialysis T/TH/Sat. No discharge needs identified. All updated and agreeable to plan. PIETER Asif Addendum: 03/20/17 at 1231 by FARHANA NANCE SS Amended: Links added.
--- NOTE | 2017-03-20 13:23 | NUR ---
DISCHARGE Pt dc'd home at 1310, off unit in w/c accompanied by MECHANICAL MAINTENANCE SUPERVISOR and pt's family. All dc instructions done via Buffing And Polishing Wheel Repairer on the iPad. Vital signs stable, denies any pain and in no apparent distress. IV dc'd intact, all belongings returned. All instructions for diet, activity, medications, prescriptions and follow up reviewed with pt and family, who report understanding.
--- NOTE | 2017-03-20 16:23 | PCM.DC.MED ---
Discharge Summary Date of Service Mar 20, 2017 Dates of Hospitalization Date of Hospital Admission Mar 18, 2017 at 01:45 Date of Discharge: Mar 20, 2017 Providers: Admitting Physician: Abdi Perez Primary Care Physician: Anuj Attending Physician: Abdi Perez Diagnosis at Time of Discharge Diagnosis at Time of Discharge # Acute atypical chest pain. Present on admission. Resolved - Cardiac workup including Echocardiogram and stress test negative and unremarkable # Acute E. Coli urinary tract infection, present on admission. # Hypertension, chronic. # Diabetes mellitus # End-stage renal disease on hemodialysis. Other Chronic Conditions # Hyperlipidemia # Aortic stenosis. # GERD Consultations 1. Nephrology Procedures XRay, CTs & MRIs Date of Service: 03/17/17 2241 PROCEDURE: X-RAY CHEST ONE VIEW, PORTABLE ([id number]) IMPRESSION: No acute cardiopulmonary disease. Dictated by: Zhou Lino [facility] Interpreted: Ca Kapadia MD on 03/18/2017 at 8:28 Transcribed by: SANDEEP on 03/18/2017 at 8:29 Approved by: Ca Kapadia MD, PhD on 03/18/2017 at 10:34 Date of Service: 03/19/17 1729 PROCEDURE: CT ABDOMEN AND PELVIS WITH CONTRAST ([id number]) IMPRESSION: 1. Concentric bladder wall thickening consistent with a nonspecific cystitis. Recommend correlation with urinalysis. 2. Moderate plaque still distention distally most prominent in the rectum may reflect constipation or fecal impaction. No evidence of bowel obstruction. 3. Intra-and extrahepatic biliary dilatation redemonstrated likely related to prior cholecystectomy. 4. Stable appearance of a small cystic lesion in the body of the pancreas most likely representing a small sidebranch IPMN. 5. Small to moderate size bilateral pleural effusions with associated compressive atelectasis. Dictated by: Brice Araujo M.D. on 03/19/2017 at 22:36 Approved by: Brice Araujo M.D. on 03/19/2017 at 22:44 Cardiac Echo Impression Date of Service: 03/18/17 0800 Echocardiogram Report Interpretation Summary Mild concentric left ventricular hypertrophy with ejection fraction 65-70%. Borderline left atrial enlargement. Mild aortic stenosis. Moderate mitral annular calcification. Comparison is made with the echocardiogram of 03/04/2014, aortic stenosis and mitral annular calcification have progressed. Electronically signed by: Josh Franklin on Reading Physician:03/18/2017 05:05 PM Invasive Procedures Hemodialysis Other Diagnostics NM cardiac stress test was performed on 03/19/17 and reported as negative by Dr. Garces (cardiology) but the official electronic report not available at time of discharge due to electronic issues. Brief History As noted in H&P by Husam: Patient is a 76 year old Georgian speaking female with a hx of ESRD on dialysis, HTN, DM, and recurrent UTI who presents to the ED complaining of chest pain. She describes a burning sensation in her chest and throat like acid. Her pain does not seem to be related to activity but she is in her wheelchair most of the time. She states this pain has been intermittent for 2 months, but worsened over the last 2 days. She states it is improved now on admission and is 0/10, when it was 8-9/10 before. She also reports abdominal bloating, back pain, dry mouth, chills, sweats, mild headache, and chronic constipation. She had a hard BM this morning followed my a normal BM later today but had not had a BM for 3- 4 days prior. She has had similar symptoms previously and her son reports that these are the same symptoms she has with a kidney infection. Her symptoms are improved with belching. She denies dysuria, cough, vomiting, fever, or any other symptoms. She does not make urine at baseline and has a hx of frequent kidney infections. In the ED, BP was 143/62. WBC was 8.1. Na 131, Cl 88, BUN 17, Cr 2.41, glucose 331, Trop 0.027. UA showed packed WBCs, 11-50 RBC, large occult blood, negative nitrite, moderate leukocyte esterase, moderate bacteria. Income Tax Advisor: Dr. Clifton [place] [facility] Course # Acute atypical chest pain. Present on admission. Resolved - She reports a burning pain in her chest and throat similar to reflux. - Echo without any focal wall motion abnormality - Trop staying stable despite ESRD - Cardiac stress test on 03/19/17 negative as noted above - Continued Aspirin and Atorvastatin - Will d/c home with Protonix 20 mg daily # Acute E. Coli urinary tract infection, present on admission. - In the context of recurrent UTIs in a non-urine producing pt with ESRD. - Pt reportedly allergic to cephalosporins but tolerated 3 days of IV Ceftriaxone without any difficulty - Per discussion with Nephrology consult will d/c home with PO Cefpodoxime 200mg 3 x weekly (after each HD) for total of 6 tabs or 2 weeks. # Hypertension, chronic. Poorly controlled - Pt has significant history of HTN, on an extensive antihypertensive medication regimen, likely secondary to renal disease. - Continued amlodipine, hydralazine, isosorbide mononitrate, labetalol - Resumed Clonidine patch on 03/20/17 with significant improvement in BP # Acute abdominal pain. Unclear if it was present on admission or not - CT abdomen with findings as noted above and suggestive of cystitis and constipation. - Constipation resolved by day of discharge and patient reported resolution of her abdominal pain # Diabetes mellitus - Continue with home meds # End-stage renal disease. - Appreciate nephrology consult. Will followup with recs - Further HD was continued per nephrology Other Chronic Conditions # Hyperlipidemia # Aortic stenosis. # GERD Exam Vital Signs (Last) Date Time Temp Pulse Resp B/P Pulse Ox O2 Delivery O2 Flow Rate FiO2 03/20/17 11:18 67 18 118/81 96 Room Air 03/20/17 09:24 36.7 Exam General: Alert, Cooperative, No Acute Distress Head: Normal Eyes: Scleral Anicteric Nose: Mucous Membr Moist/[place] Mouth: Mucous Membr Moist/[place] Neck: Supple Chest & Lungs: Chest Wall Normal, Clear to auscultation bilat Cardiovascular: Regular Rate/Rhythm Abdomen: Non-tender, Non-distended, Normoactive bowel tones, Soft Extremities: No cyanosis/clubbing/edema bilat Neurological: Grossly Neurologically Intact, Normal Speech Psych: Normal affect Test 03/17/17 22:49 03/17/17 23:11 03/17/17 23:12 03/18/17 06:47 Urine Color Dark yellow (YELLOW) Urine Appearance Turbid (CLEAR,HAZY) Urine pH 8.0 (5.0-8.0) Urine Specific [place] 1.020 (1.003-1.035) Urine Protein 300mg/dL (NEG,TRACE) Urine Glucose (UA) 100mg/dL (NEGATIVE) Urine Ketones Negativemg/dL (NEGATIVE) Urine Occult Blood Large (NEGATIVE) Urine Nitrite Negative (NEGATIVE) Urine Bilirubin Negative (NEGATIVE) Urine Urobilinogen Normalmg/dL (NORMAL) Urine Leukocyte Esterase Moderate (NEGATIVE) Urine RBC 11-50/hpf (0-2) Urine WBC Packed/hpf (0-5) Urine Epithelial Cells Occasional/hpf (NONE-MOD) Urine Crystals None seen (NONE SEEN) Urine Bacteria Moderate/hpf (NONE-FEW) Urine Hyaline Casts None/lpf (NONE) Urine Granular Casts None seen (NONE SEEN) Urine Waxy Casts None seen (NONE SEEN) Urine Red Blood Cell Casts None seen (NONE SEEN) Urine White Blood Cell Casts None seen (NONE SEEN) Urine Mucus None seen (None Seen) Urine Trichomonas None seen (NONE SEEN) Urine Yeast None (NONE SEEN) Urinalysis Comment None Urine Culture Reflexed Indicated Prothrombin Time 10.0sec (8.1-12.5) Prothromb Time International Ratio 0.94ratio Phosphorus Level 2.6mg/dL (2.5-4.9) Magnesium Level 1.8mg/dL (1.6-2.6) Hold [place] Top Tube Received (Received) Neutrophils (%) (Auto) 66.0% (40-74) Lymphocytes (%) (Auto) 19.8% (14-46) Monocytes (%) (Auto) 10.0% (4-12) Eosinophils (%) (Auto) 3.3% (0-5) Basophils (%) (Auto) 0.6% (0-3) Total Bilirubin 0.2mg/dL (0.0-1.2) Aspartate Amino Transf (AST/SGOT) 12U/L (0-50) Alanine Aminotransferase (ALT/SGPT) 5U/L (0-32) Alkaline Phosphatase 137U/L (25-165) Total Protein 6.2g/dL (6.4-8.4) Albumin 3.4g/dL (3.4-5.0) Test 03/18/17 10:40 7/1/17 06:25 03/20/17 05:50 Troponin T 0.029ug/L (0.0-0.011) Triglycerides Level 127mg/dL (0-149) Cholesterol Level 111mg/dL (100-199) LDL Cholesterol, Calculated 43.600mg/dL (0-99) VLDL Cholesterol 25.400mg/dL HDL Cholesterol 42mg/dL (>39) Cholesterol/HDL Ratio 2.64 (0.0-4.4) White Blood Count 10.5th/mm3 (3.8-10.1) Red Blood Count 4.08mil/mm3 (3.90-5.20) Hemoglobin 13.0g/dL (12.0-15.6) Hematocrit 39.9% (35.0-46.0) Mean Corpuscular Volume 97.8fL (81-100) Mean Corpuscular Hemoglobin 31.9pg (27.0-35.0) Mean Corpuscular Hemoglobin Concent 32.6% (32.0-37.0) Red Cell Distribution Width 13.1% (12.3-15.4) Platelet Count 202bil/L (150-400) Sodium Level 134mEq/L (134-144) Potassium Level 4.5mEq/L (3.5-5.2) Chloride Level 90mEq/L (97-108) Carbon Dioxide Level 28mmol/L (18-29) Blood Urea Nitrogen 13mg/dL (8-27) Creatinine 2.98mg/dL (0.57-1.00) Estimat Glomerular Filtration Rate 22mL/min (>59) Glucose Level 148mg/dL (60-99) Calcium Level 8.9mg/dL (8.5-10.1) Discharge Medications Discharge Medications Amlodipine (Amlodipine) 10 Mg Tablet 10 MG PO QAM (Reported) Aspirin (Aspirin) 325 Mg Tablet.dr 325 MG PO QAM (Reported) Calcium Acetate (Calcium Acetate) 667 Mg Capsule 667 MG PO TIDWM (Reported) Cefpodoxime Proxetil (Cefpodoxime Proxetil) 200 Mg Tablet 200 MG PO DIRECTED 3 times per week (on Tuesday, , Tuesday) after each dialysis Prescribed by: ABDI PEREZ MD Cinacalcet HCl (Sensipar) 90 Mg Tablet 60 MG PO BID (Reported) Clonidine 0.2 mg/day Patch (Catapres TTS-2) 1 Each Patch 1 PATCH TRANSDERM WEEKLY (Reported) Folic Acid (Folic Acid) 1 Mg Tablet 5 MG PO DAILY Prescribed by: TONY ROD MD Hydralazine (Hydralazine) 50 Mg Tablet 50 MG PO TID (Reported) Insulin Glargine (Lantus U100 Solostar Insulin Pen) 100 Unit/1 Ml Insuln.pen 5- 10 UNIT SUBQ HS (Reported) Insulin Lispro (HumaLOG U100 Insulin Pen) 100 Unit/1 Ml Insuln.pen 1-12 UNITS SUBQ TID-INSULIN (Reported) Blood Sugar Lispro Correction <151 0 units 151-175 1 unit 176-200 2 units 201-225 3 units 226-250 4 units 251-275 5 units 276-300 6 units 301-325 7 units 326-350 8 units 351-375 9 units 376-400 10 units >400 12 units Check blood sugars before meals and at bedtime. Use correction factor only before meals. Isosorbide MN ER (Isosorbide MN ER) 120 Mg Tab.er.24h 120 MG PO QAM (Reported) Labetalol (Labetalol) 200 Mg Tablet 200 MG PO TID Prescribed by: RAGHAVENDRA PINTO MD Metoprolol Tartrate (Metoprolol Tartrate) 50 Mg Tablet 50 MG PO BID (Reported) Multivitamin, Min Cmb#25/FA/D3 (Dialyvite [place] D Tablet) 1 Each Tablet 1 EACH PO QAM (Reported) Pantoprazole DR (Protonix) 20 Mg Tablet 20 MG PO DAILY Prescribed by: ABDI PEREZ MD Sevelamer Carbonate (Renvela) 800 Mg Tablet 800 MG PO TIDWM (Reported) WITH MEALS AND SNACKS Followup Plan Disposition: Home Follow-up plan 1. Followup with primary care provider within one week 2. Followup with hemodialysis as previously scheduled 3. Followup with your coding compliance specialist within one week Discharge Diet: Low fat, Low Sodium, Heart Healthy, Diabetic Discharge Activity: No restrictions Patient Instructions Seek immediate medical attention if any new or worsening signs or symptoms occur. Follow-up Provider: Halima Seymour MD Follow-up with PCP in: Other ( within one week) Provider: Trina Farrell MD Follow-up in: Other ( within one week) Time spent 40 min copies to: Trina Farrell MD; Halima Seymour MD, [place] Mar 20, 2017 16:23
--- NOTE | 2017-03-20 19:33 | DRSVH ---
PROCEDURE: EITHER REST OR STRESS ONLY INDICATIONS: CHEST PAIN. COMPARISON: None. Radiopharmaceutical: stress dose 22.1 mCi Tc 99 Tetrofosmin FINDINGS: Pharmacologic stress test: Following informed consent Lexiscan was infused per protocol. No ST changes or ectopy seen Pt developed chest discomfort following Lexiscan infusion. Symptoms resolved with Aminophylline. Raw data: normal myocardial tracer uptake. Lung heart ratio is normal. Quantitative gated SPECT: At peak stress ejection fraction is 79%. Normal end-diastolic dimension. Myocardial perfusion imaging: There is no evidence of ischemia or prior infarct IMPRESSION: Normal pharmacologic stress test for myocardial perfusion imaging. There is no evidence of ischemia or prior infarct. Normal wall motion and left ventricular systolic function. Compared to prior study performed November 15, 2014, no significant changes have occurred Dictated by: Becka Garces M.D. on 03/20/2017 at 19:15 Approved by: Becka Garces M.D. on 03/20/2017 at 19:31
== END 2017-03-20 13:15 | disposition home or self-care (01) | DRG 689 ==
LOC: SED 21:30 → MPC 03-18 01:45
PROVIDERS: ADMIT Internal Medicine; ATTEND Internal Medicine
PROC: 5A1D00Z (ICD-10-PCS; principal; 2017-03-19)
DX: N39.0 Urinary tract infection, site not specified (principal); N18.6 End stage renal disease; I12.0 Hypertensive chronic kidney disease with stage 5 chronic kidney disease or end stage renal disease; E11.21 Type 2 diabetes mellitus with diabetic nephropathy; D63.1 Anemia in chronic kidney disease; R07.89 Other chest pain; E11.22 Type 2 diabetes mellitus with diabetic chronic kidney disease; I35.0 Nonrheumatic aortic (valve) stenosis; E78.5 Hyperlipidemia, unspecified; K21.9 Gastro-esophageal reflux disease without esophagitis; K59.00 Constipation, unspecified; Z79.4 Long term (current) use of insulin; Z79.82 Long term (current) use of aspirin; Z99.2 Dependence on renal dialysis

== ENCOUNTER 2017-03-23 18:58 | Emergency (ER) | payer MEDICAID ==
[~2017-03-23] VITALS: Ht 144.8 cm; Wt 72.0 kg
[~2017-03-23 18:58] MED LIST changes: +CEFP200T3 PO; -CICL15CR12 TP; -ERYT1OIN7 TOPICAL; +PANT20T PO
[2017-03-23 19:19] VITALS: BP 148/66; PULSE 84; RESP 16; O2SAT 100
--- NOTE | 2017-03-23 20:06 | ED.REPORT ---
HPI-General Illness Date of Service Mar 23, 2017 ED Provider: Sourav Griggs MD Patient is a 76 year old female with a history of ESRD on dialysis, hypertension , recurrent UTI's, GERD and diabetes mellitus who presents to the ED complaining of intermittent abdominal discomfort that began 2 days ago. She was recently admitted to [facility] from 03/18/2017-03/20/2017 for chest pain related to GERD. Echocardiogram revealed no focal wall abnormalities. Patient was also treated for an E.coli UTI with IV ceftriaxone. She was discharged in good condition with a prescription for ceftriaxone. She has been taking a PPI since discharge. Patient presents today with multiple complaints including similar pain to what she was experiencing before her recent admission which has been coming/going without any apparent pattern since discharge. The pain feels like a burning and radiates up to her throat. The pain is associated with nausea and belching. There is no exertional component to her pain. She also reports experiencing burning in her feet that is similar to her chronic neuropathy pain. Nursing Notes Stated Complaint: ABDOMINAL PAIN Chief Complaint: Female Abdominal Pain Nursing Notes Reviewed: Yes Allergies: Coded Allergies: cefazolin sodium (Verified Allergy, Unknown, NO ADR WITH CEFTRIAXONE IN ER , 01/04/17) morphine (Verified Adverse Reaction, Intermediate, Hallucinations, 01/04/17 ) Family reported morphine caused hallucination Cephalosporins (Verified Adverse Reaction, Unknown, 01/11/17) causes confusion Scheduled Amlodipine (Amlodipine) 10 Mg Tablet 10 MG PO QAM Aspirin (Aspirin) 325 Mg Tablet.dr 325 MG PO QAM Calcium Acetate (Calcium Acetate) 667 Mg Capsule 667 MG PO TIDWM Cefpodoxime Proxetil (Cefpodoxime Proxetil) 200 Mg Tablet 200 MG PO DIRECTED 3 times per week (on Tuesday, , Tuesday) after each dialysis Cinacalcet HCl (Sensipar) 90 Mg Tablet 60 MG PO BID Clonidine 0.2 mg/day Patch (Catapres TTS-2) 1 Each Patch 1 PATCH TRANSDERM WEEKLY Folic Acid (Folic Acid) 1 Mg Tablet 5 MG PO DAILY Hydralazine (Hydralazine) 50 Mg Tablet 50 MG PO TID Insulin Glargine (Lantus U100 Solostar Insulin Pen) 100 Unit/1 Ml Insuln.pen 5- 10 UNIT SUBQ HS Insulin Lispro (HumaLOG U100 Insulin Pen) 100 Unit/1 Ml Insuln.pen 1-12 UNITS SUBQ TID-INSULIN Blood Sugar Lispro Correction <151 0 units 151-175 1 unit 176-200 2 units 201-225 3 units 226-250 4 units 251-275 5 units 276-300 6 units 301-325 7 units 326-350 8 units 351-375 9 units 376-400 10 units >400 12 units Check blood sugars before meals and at bedtime. Use correction factor only before meals. Isosorbide MN ER (Isosorbide MN ER) 120 Mg Tab.er.24h 120 MG PO QAM Labetalol (Labetalol) 200 Mg Tablet 200 MG PO TID Metoprolol Tartrate (Metoprolol Tartrate) 50 Mg Tablet 50 MG PO BID Multivitamin, Min Cmb#25/FA/D3 (Dialyvite Dubberly D Tablet) 1 Each Tablet 1 EACH PO QAM Pantoprazole DR (Protonix) 20 Mg Tablet 20 MG PO DAILY Sevelamer Carbonate (Renvela) 800 Mg Tablet 800 MG PO TIDWM WITH MEALS AND SNACKS Sucralfate Susp (Carafate Susp) 1 Gm/10 Ml Oral.susp 1 GM PO QID Scheduled PRN Ondansetron ODT (Zofran ODT) 4 Mg Tablet 4 MG PO Q4H PRN PRN For Nausea General Time Seen by MD: 20:05 Chief Complaint Abdominal pain Hx Obtained From: Patient Arrived By: Walk-in Sudden in Onset?: No Onset Occurred: 2 days ago Symptom Duration: Since onset Location: : Abdomen Quality: Painful Radiation: : Does not radiate Severity: Current: Severe Severity: Maximum: Moderate Associated with: Reports: Abdominal pain, Pain (feet ) Pertinent Negative: Pt denies other symptoms Recent Healthcare: Recent doctor visit, Recent hospitalization Past Medical History 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 Dyslipidemia. 2. End-stage renal disease. a. Secondary hyperparathyroidism. b. 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 3. Recurrent urinary tract infections. Urine culture (December 25, 2013) yielded E. coli resistant to Unasyn, ampicillin, piperacillin, and quinolones. 4. Clostridium difficile colitis. 5. Healthcare associated pneumonia 6. DVT 7. diverticulitis 8. ileus with prior small bowel obstruction Aortic stenosis. Reports: Diabetes mellitus, GERD, Hyperlipidemia, Hypertension Past Surgical History 1. diverticular perforation requiring laparotomy and small-bowel resection and primary anastomosis with postoperative abscess and prolonged antibiotics. 2. AV fistula 3. patellar fracture repair 4. traumatic finger amputation Reports: Cataract surgery, Cholecystectomy Smoking History Never Smoker Social History Alcohol Use: Denies alcohol use Other Social History: Good social support, Local resident Ambulatory Status Wheelchair Review of Systems Full Review of Systems GI: Reports: Abdominal pain Female: Reports: Urinary urgency, Urination increased Musculoskeletal: Reports: Extremity pain (burning in her feet) Complete sys rev & neg: except as marked. Physical Exam Vital Signs Vital Signs Date Time Temp Pulse Resp B/P Pulse Ox O2 Delivery O2 Flow Rate FiO2 03/23/17 23:20 65 16 143/57 96 Room Air 03/23/17 23:20 65 16 143/57 100 Room Air 03/23/17 19:19 36.6 84 16 148/66 100 Initial VS: Reviewed Neck: Supple, Non-tender, Full range of motion Neurologic: Alert, Oriented, Nonfocal Psychiatric: Mood/affect normal, Behavior normal, Normal thought content General/Constitutional: Awake, Alert, No acute distress, Well appearing, Well developed Head / Eyes: Atraumatic, Normocephalic, PERRL Respiratory / Chest: Atraumatic, Breath sounds NL, Breath sounds = bilat, No respiratory distress Cardiovascular: Heart rate NL, Regular rhythm, No gallop, No murmurs, No rubs Heart Sounds / Murmur: Positive: Systolic murmur present.. (III/; best heard in L sternal border) CARDIO: Trace edema in bilateral LE Multiple thrills No calf swelling or tenderness Abdomen: Atraumatic, Soft, Non-tender (Tolerates firm palpation), No guarding, No rebound, BS normoactive, No distention No rigidity Upper Extremities Upper Extremity / MS: Atraumatic, Neurologic intact (Good cap refill), Vascular intact Lower Extremity / Pelvis / MS: Atraumatic, Neurologic intact (Sensation intact) , Vascular intact Skin: Atraumatic, Color NL, No rash, Warm, Dry, Intact Interpretation & Diagnostics Lab Results Interpretation Result Diagram: 03/23/17 2200 03/23/17 2200 Test 03/23/17 22:00 White Blood Count 11.6th/mm3 (3.8-10.1) Red Blood Count 3.47mil/mm3 (3.90-5.20) Hemoglobin 10.8g/dL (12.0-15.6) Hematocrit 33.8% (35.0-46.0) Mean Corpuscular Volume 97.4fL (81-100) Mean Corpuscular Hemoglobin 31.1pg (27.0-35.0) Mean Corpuscular Hemoglobin Concent 32.0% (32.0-37.0) Red Cell Distribution Width 13.1% (12.3-15.4) Platelet Count 211bil/L (150-400) Neutrophils (%) (Auto) 76.6% (40-74) Lymphocytes (%) (Auto) 14.2% (14-46) Monocytes (%) (Auto) 6.7% (4-12) Eosinophils (%) (Auto) 1.9% (0-5) Basophils (%) (Auto) 0.3% (0-3) Sodium Level 132mEq/L (134-144) Potassium Level 3.9mEq/L (3.5-5.2) Chloride Level 89mEq/L (97-108) Carbon Dioxide Level 25mmol/L (18-29) Blood Urea Nitrogen 23mg/dL (8-27) Creatinine 4.67mg/dL (0.57-1.00) Estimat Glomerular Filtration Rate 13mL/min (>59) Glucose Level 194mg/dL (60-99) Calcium Level 8.3mg/dL (8.5-10.1) Magnesium Level 1.9mg/dL (1.6-2.6) Total Bilirubin 0.2mg/dL (0.0-1.2) Aspartate Amino Transf (AST/SGOT) 28U/L (0-50) Alanine Aminotransferase (ALT/SGPT) 10U/L (0-32) Alkaline Phosphatase 152U/L (25-165) Total Protein 6.9g/dL (6.4-8.4) Albumin 3.6g/dL (3.4-5.0) Lipase 75U/L (13-60) Hold [place] Top Tube Received (Received) CT Abd / Pelvis Interpretation IMPRESSION: No definite renal calculi. Numerous bilateral renal vascular calcifications as before. No evidence of urinary obstruction Possible posterior rectal wall mass suspicious for malignancy. Please correlate clinically and to exam findings. Recommend further evaluation with endoscopy if clinically warranted. Appendix not visualized. Please correlate clinically. Numerous bilateral renal cysts. Status post cholecystectomy. Small bilateral pleural effusions with adjacent atelectasis. Dictated by: Kingsley Dailey M.D. on 03/23/2017 at 21:35 Study type: Abdominal CT no contrast Interpretation / Wet Read by: Interpret - Radiologist Re-Eval/Medical Decision Med Decision/Clinical Course Patient is a 76 year old female with a history of ESRD on dialysis, hypertension , recurrent UTI's, GERD and diabetes mellitus who presents to the ED complaining of intermittent abdominal discomfort that began 2 days ago. She was recently admitted to [facility] from 03/18/2017-03/20/2017 for chest pain related to GERD. Echocardiogram revealed no focal wall abnormalities. Patient was also treated for an E.coli UTI with IV ceftriaxone. She was discharged in good condition with a prescription for ceftriaxone. She has been taking a PPI since discharge. Patient presents today with multiple complaints including similar pain to what she was experiencing before her recent admission which has been coming/going without any apparent pattern since discharge. The pain feels like a burning and radiates up to her throat. The pain is associated with nausea and belching. There is no exertional component to her pain. Here in the emergency department the patient is afebrile, hemodynamically stable with examination as above. She was treated with the below medications and thereafter afforded significant symptom improvement. GI cocktail Zofran Upper studies notable as below: leukocytosis 11.6 Hct 33.8 stable Creat 2.98 (near baseline) BUN 13 no significant electrolyte abnormalities Coag norm Given the patient's end-stage renal disease we proceeded with a noncontrast CT scan as below: No definite renal calculi. Numerous bilateral renal vascular calcifications as before. No evidence of urinary obstruction Possible posterior rectal wall mass suspicious for malignancy. Please correlate clinically and to exam findings. Recommend further evaluation with endoscopy if clinically warranted. Appendix not visualized. Please correlate clinically. Numerous bilateral renal cysts. Status post cholecystectomy. Small bilateral pleural effusions with adjacent atelectasis. After above interventions patient reported dramatic improvement. I see no evidence of acute surgical intra-abdominal process so imaging is limited due to lack of contrast. Patient states that she feels better and would like to go home. He said provided with a prescription for Zofran as well as Carafate. She will follow up closely with her primary care physician. Given the findings of possible rectal wall mass she has been referred to GI for consideration of endoscopy.Prior to discharge follow-up and return precautions were reviewed in detail with the patient as well as her son who verbalized understanding and agreement with the plan. The patient was discharged in stable condition. Time of Eval: 20:47 Patient Status: Condition improved Re-Evaluation/Progress Note: Patient is rechecked. She is informed of her results and diagnosis. All questions about the intended treatment plan are addressed. She understands and agrees with the plan. Counseled Regarding: Diagnosis, Lab results, Need for follow-up, When/why to return to ED Discharge & Departure Primary Impression: Abdominal pain Abdominal location: generalized Qualified Code: R10.84 - Generalized abdominal pain Additional Impressions: GERD with esophagitis Epigastric pain Peripheral neuropathy Peripheral neuropathy type: polyneuropathy, unspecified Qualified Code: G62.9 - Polyneuropathy, unspecified Hemodialysis patient Rectal mass Disposition: Home Discharge Condition All VS Reviewed: Yes Condition: Stable Patient Instructions: Acute Abdominal Pain (ED) Additional Instructions: Thank you for seeking care at emergency room. Our primary goal today in the ED was to evaluate you for any life-threatening conditions. Your evaluation was reassuring. Your CT revealed a mass in the rectum and this will require follow up. See the referred GI doctor (Dr. Serrano) to schedule an endoscopy. Continue to take ceftriaxone and Carafate. You should follow-up with your primary doctor in the next week. You should return to the ED immediately if you develop worsening abdominal pain , blood in your stool, fevers, vomiting, cough, shortness of breath, chest pain , lightheadedness, weakness or any other concerning signs or symptoms. Thank you for letting us partake in your care today. Referrals: NOPCP (PCP) Jd Serrano MD Attestation Portions of this note were transcribed by Tonny Villanueva. I, Dr. Griggs personally performed the history, physical exam and medical decision-making; I reviewed and confirmed the accuracy of the information in the transcribed note. Signed by: Kevin Turner, 03/23/17 [id number]. Sourav Griggs MD Mar 23, 2017 20:06 TONNY VILLANUEVA Mar 23, 2017 20:35
[2017-03-23] MEDS ORDERED: LidocaineVisc 2%:Antacid 1:1 10 mL Syringe PO ONE (21:05)
[2017-03-23] MEDS ORDERED: Ondansetron 2 mg/mL 2 mL Inj IVPUSH ONE (21:05)
--- NOTE | 2017-03-23 21:46 | DRSVH ---
PROCEDURE: CT KUB ([id number]) INDICATIONS: abd pain, cannot get contrast TECHNIQUE: Noncontrast 5 mm thick sections acquired from the diaphragms to the symphysis. 5 mm thick coronal an d sagittal reformats were then performed. For radiation dose reduction, the following was used: aut omated exposure control, adjustment of mA and/or kV according to patient size. COMPARISON: [facility], CT, KUB - CT ([facility]), 03/19/2013, 12:12. FINDINGS: Image quality: Excellent. Lung bases: Small bilateral pleural effusions with adjacent atelectasis. The heart is enlarged Urinary system: There are numerous bilateral renal cysts which appear simple in appearance although s ome of these are too small to characterize definitively There are numerous bilateral vascular calcifi cations. No definite renal calculi is seen.. No hydronephrosis or perinephric fat stranding. Both u reters appear non-dilated throughout their expected courses. Bladder is decompressed; no calcified bl adder stones. Other solid organs: Liver and spleen are normal in size. Gallbladder surgically absent. Possible 8 mm pancreatic cyst on image 27 is unchanged since 2013. No adrenal nodules. Peritoneum and bowel: There is possible posterior rectal wall thickening on image 79 series 4 No free fluid or air. Appendix not seen Nodes and vessels: No retroperitoneal or mesenteric adenopathy by size criteria. Aorta unremarkable except for atheromatous calcifications. The IVC is decompressed Abdominal wall: No ventral hernias. Pelvis: No free pelvic fluid. No inguinal hernias or adenopathy. Numerous uterine calcifications w hich are probably vascular. Bones: No suspicious bony lesions. No vertebral body compression fractures. IMPRESSION: No definite renal calculi. Numerous bilateral renal vascular calcifications as before. No evidence of urinary obstruction Possible posterior rectal wall mass suspicious for malignancy. Please correlate clinically and to exa m findings. Recommend further evaluation with endoscopy if clinically warranted. Appendix not visualized. Please correlate clinically. Numerous bilateral renal cysts. Status post cholecystectomy. Small bilateral pleural effusions with adjacent atelectasis. Dictated by: Kingsley Dailey M.D. on 03/23/2017 at 21:35 Approved by: Kingsley Dailey M.D. on 03/23/2017 at 21:45
[2017-03-23 22:10] LABS: BASOPHILS % (AUTO) 0.3 % (0-3); EOSINOPHILS % (AUTO) 1.9 % (0-5); MONOCYTES % (AUTO) 6.7 % (4-12); Mean Corpuscular Hemoglobin 31.1 pg (27.0-35.0); Mean Corpuscular Volume 97.4 fL (81-100); NEUTROPHILS % (AUTO) 76.6 % (40-74); Platelet Count 211 bil/L (150-400)
[2017-03-23 22:29] LABS: Magnesium 1.9 mg/dL (1.6-2.6)
[2017-03-23] MEDS ORDERED: SUCR1ORA2 PO (22:42)
[2017-03-23] MEDS ORDERED: ONDA4TAB9 PO (23:06)
[2017-03-23 23:20] VITALS: BP 143/57; PULSE 65; RESP 16; O2SAT 100; O2SAT 96
== END 2017-03-23 23:21 | disposition home or self-care (01) ==
LOC: SED 18:58
DX: R10.13 Epigastric pain (principal); K21.0 Gastro-esophageal reflux disease with esophagitis; G62.9 Polyneuropathy, unspecified; K62.89 Other specified diseases of anus and rectum; I12.0 Hypertensive chronic kidney disease with stage 5 chronic kidney disease or end stage renal disease; E11.22 Type 2 diabetes mellitus with diabetic chronic kidney disease; N18.6 End stage renal disease; E78.5 Hyperlipidemia, unspecified; Z99.2 Dependence on renal dialysis; Z87.440 Personal history of urinary (tract) infections; Z87.01 Personal history of pneumonia (recurrent); Z90.49 Acquired absence of other specified parts of digestive tract; Z79.82 Long term (current) use of aspirin; Z79.4 Long term (current) use of insulin; Z88.1 Allergy status to other antibiotic agents; Z88.5 Allergy status to narcotic agent

== ENCOUNTER 2017-03-26 12:18 | Emergency (ER) | payer MEDICAID ==
[~2017-03-26] VITALS: Ht 147.3 cm; Wt 72.0 kg
[~2017-03-26 12:18] MED LIST changes: +ONDA4TAB9 PO; +SUCR1ORA2 PO
--- NOTE | 2017-03-26 12:34 | ED.REPORT ---
HPI-Chest Pain 40 and Over Date of Service Mar 26, 2017 ED Provider: Steve Jenkins Pt is a 76 year old female with a history of DM, HTN, and hyperlipidemia who presents to the ED via EMS complaining of SOB. She c/o associated dry throat and mouth, diarrhea (onset 15 days ago), shaking, subjective fever, and neck pain. She denies chest pain, cold-related symptoms, and any other symptoms. Although she denies chest pain, she states while pointing to her chest, "it feels like there is something right here" describing it as "tight." Pt reports that her diarrhea wakes her up at night, and that the medication she was given 2 weeks ago induces pain. Nursing Notes Stated Complaint: CHEST PAIN Chief Complaint: Female Abdominal Pain Nursing Notes Reviewed: Yes Allergies: Coded Allergies: cefazolin sodium (Verified Allergy, Unknown, NO ADR WITH CEFTRIAXONE IN ER , 03/26/17) morphine (Verified Adverse Reaction, Intermediate, Hallucinations, 03/26/17) Family reported morphine caused hallucination Cephalosporins (Verified Adverse Reaction, Unknown, 03/26/17) causes confusion Scheduled Amlodipine (Amlodipine) 10 Mg Tablet 10 MG PO QAM Aspirin (Aspirin) 325 Mg Tablet.dr 325 MG PO QAM Calcium Acetate (Calcium Acetate) 667 Mg Capsule 667 MG PO TIDWM Cefpodoxime Proxetil (Cefpodoxime Proxetil) 200 Mg Tablet 200 MG PO DIRECTED 3 times per week (on Tuesday, , Tuesday) after each dialysis Cinacalcet HCl (Sensipar) 90 Mg Tablet 60 MG PO BID Clonidine 0.2 mg/day Patch (Catapres TTS-2) 1 Each Patch 1 PATCH TRANSDERM WEEKLY Folic Acid (Folic Acid) 1 Mg Tablet 5 MG PO DAILY Hydralazine (Hydralazine) 50 Mg Tablet 50 MG PO TID Insulin Glargine (Lantus U100 Solostar Insulin Pen) 100 Unit/1 Ml Insuln.pen 5- 10 UNIT SUBQ HS Insulin Lispro (HumaLOG U100 Insulin Pen) 100 Unit/1 Ml Insuln.pen 1-12 UNITS SUBQ TID-INSULIN Blood Sugar Lispro Correction <151 0 units 151-175 1 unit 176-200 2 units 201-225 3 units 226-250 4 units 251-275 5 units 276-300 6 units 301-325 7 units 326-350 8 units 351-375 9 units 376-400 10 units >400 12 units Check blood sugars before meals and at bedtime. Use correction factor only before meals. Isosorbide MN ER (Isosorbide MN ER) 120 Mg Tab.er.24h 120 MG PO QAM Labetalol (Labetalol) 200 Mg Tablet 200 MG PO TID Metoprolol Tartrate (Metoprolol Tartrate) 50 Mg Tablet 50 MG PO BID Multivitamin, Min Cmb#25/FA/D3 (Dialyvite [place] D Tablet) 1 Each Tablet 1 EACH PO QAM Pantoprazole DR (Protonix) 20 Mg Tablet 20 MG PO DAILY Sevelamer Carbonate (Renvela) 800 Mg Tablet 800 MG PO TIDWM WITH MEALS AND SNACKS Sucralfate Susp (Carafate Susp) 1 Gm/10 Ml Oral.susp 1 GM PO QID Scheduled PRN Ondansetron ODT (Zofran ODT) 4 Mg Tablet 4 MG PO Q4H PRN PRN For Nausea General Time Seen by MD: 12:34 Chief Complaint Shortness of breath Hx Obtained From: Patient, EMS Arrived By: Ambulance Sudden in Onset?: No Onset Occurred: Just prior to arrival Symptom Duration: Since onset Location: : Neck Quality: Painful Severity: Current: Moderate Severity: Maximum: Moderate Recent Healthcare: Recent doctor visit Similar Sx Previous: No Past Medical History Past Medical History Notes: [place] 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 Dyslipidemia. 2. End-stage renal disease. a. Secondary hyperparathyroidism. b. 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 3. Recurrent urinary tract infections. Urine culture (December 25, 2013) yielded E. coli resistant to Unasyn, ampicillin, piperacillin, and quinolones. 4. Clostridium difficile colitis. 5. Healthcare associated pneumonia 6. DVT 7. diverticulitis 8. ileus with prior small bowel obstruction Aortic stenosis. Reports: Diabetes mellitus, GERD, Hyperlipidemia, Hypertension, Denies: Cancer Past Surgical History 1. diverticular perforation requiring laparotomy and small-bowel resection and primary anastomosis with postoperative abscess and prolonged antibiotics. 2. AV fistula 3. patellar fracture repair 4. traumatic finger amputation Reports: Cataract surgery, Cholecystectomy Smoking History Never Smoker Social History Alcohol Use: Denies alcohol use Other Social History: Good social support, Local resident Ambulatory Status Wheelchair Review of Systems + Throat and mouth feel dry Respiratory: Reports: Shortness of breath, Denies: Non-productive cough Cardiovascular: Denies: Chest pain GI: Reports: Diarrhea Neurologic: Reports: Shaking Complete sys rev & neg: except as marked. Ears / Nose / Throat: Denies: Nasal congestion Allergy / Immune: Denies: Rhinorrhea, Sneezing Physical Exam Initial Vital Signs Vital Signs (First) Date Time Temp Pulse Resp B/P Pulse Ox O2 Delivery O2 Flow Rate FiO2 03/26/17 12:37 37.1 72 12 118/55 97 Room Air Initial VS: Reviewed Head / Eyes: Atraumatic, Normocephalic Neck: Supple, Full range of motion Extremities: Vascular intact, Neuro intact Skin: Warm, Dry, No cyanosis Neurologic: Alert, Oriented, Nonfocal Psychiatric: Mood/affect normal, Behavior normal General/Constitutional: Awake, Alert, Cooperative Respiratory / Chest: Atraumatic, Breath sounds NL, Breath sounds = bilat Cardiovascular: Heart rate NL, Regular rhythm, Heart sounds NL No edema Abdomen: Atraumatic, Soft, Non-tender Interpretation & Diagnostics Lab Results Interpretation Result Diagram: 03/26/17 1235 03/26/17 1235 Test 03/26/17 12:35 White Blood Count 8.6th/mm3 (3.8-10.1) Red Blood Count 3.41mil/mm3 (3.90-5.20) Hemoglobin 10.7g/dL (12.0-15.6) Hematocrit 33.5% (35.0-46.0) Mean Corpuscular Volume 98.2fL (81-100) Mean Corpuscular Hemoglobin 31.4pg (27.0-35.0) Mean Corpuscular Hemoglobin Concent 31.9% (32.0-37.0) Red Cell Distribution Width 13.3% (12.3-15.4) Platelet Count 205bil/L (150-400) Neutrophils (%) (Auto) 73.2% (40-74) Lymphocytes (%) (Auto) 17.0% (14-46) Monocytes (%) (Auto) 7.1% (4-12) Eosinophils (%) (Auto) 2.1% (0-5) Basophils (%) (Auto) 0.3% (0-3) Sodium Level 135mEq/L (134-144) Potassium Level 4.0mEq/L (3.5-5.2) Chloride Level 88mEq/L (97-108) Carbon Dioxide Level 24mmol/L (18-29) Blood Urea Nitrogen 27mg/dL (8-27) Creatinine 5.15mg/dL (0.57-1.00) Estimat Glomerular Filtration Rate 12mL/min (>59) Glucose Level 188mg/dL (60-99) Calcium Level 8.0mg/dL (8.5-10.1) Magnesium Level 2.0mg/dL (1.6-2.6) Total Bilirubin 0.2mg/dL (0.0-1.2) Aspartate Amino Transf (AST/SGOT) 19U/L (0-50) Alanine Aminotransferase (ALT/SGPT) 8U/L (0-32) Alkaline Phosphatase 145U/L (25-165) Troponin T 0.026ug/L (0.0-0.011) Total Protein 7.3g/dL (6.4-8.4) Albumin 3.7g/dL (3.4-5.0) Lipase 63U/L (13-60) ECG Interpretation ECG Interpretation: Sinus rhythm with a rate of 65 Nonspecific T abnormalities, diffuse leads Time: 12:44 Interpreted by: ED physician Re-Eval/Medical Decision Med Decision/Clinical Course This patient has many complaints at the time of discharge telling me that she feels like she is not getting enough oxygen, she tells me she cannot swallow, she says that she is not able to tolerate the symptoms in her abdomen and begins to cry out. Before I told her that she was leaving however she was resting calmly and conversing normally. I observed her swallow water without difficulty and her oxygen saturation and respiratory rate are entirely normal. Testing done in the ER today is really quite reassuring other than her known renal failure. I believe that outpatient follow-up for these problems the next appropriate step. She was telling me about continuous diarrhea and I thought that given her recent antibiotic use that PCR testing of the stool would be appropriate, but she has been unable to produce a stool specimen which of course argue somewhat against C. difficile colitis. I will leave further workup to the outpatient realm. Source of Hx: Old records Counseled Regarding: Diagnosis, Lab results, Need for follow-up, When/why to return to ED Discharge & Departure Primary Impression: Painful swallowing Additional Impression: Diarrhea Disposition: Home Discharge Condition All VS Reviewed: Yes Condition: Stable Patient Instructions: Chest Pain (ED) Additional Instructions: I was not able to discover the cause for your painful swallowing and heaviness in your chest, nor was able to discover a dangerous cause for the abdominal symptoms that you have. You may require further evaluation for these problems but this should be done in the clinic this coming week. You should go directly to dialysis right now for your regular dialysis. Try Tessalon Perles to see if this helps the difficulty in your throat. Referrals: [facility] Scribe Attestation Portions of this note were transcribed by Claudette Campos. I, Dr. Jenkins personally performed the history, physical exam and medical decision-making; I reviewed and confirmed the accuracy of the information in the transcribed note. Signed by: Kevin Martinez, 03/26/17 and 13:50. copies to: [facility] Steve Jenkins MD Mar 26, 2017 12:34 Claudette Garza Mar 26, 2017 12:46
[2017-03-26 12:37] VITALS: BP 118/55; PULSE 72; RESP 12; O2SAT 97
[2017-03-26 12:48] LABS: BASOPHILS % (AUTO) 0.3 % (0-3); EOSINOPHILS % (AUTO) 2.1 % (0-5); MONOCYTES % (AUTO) 7.1 % (4-12); Mean Corpuscular Hemoglobin 31.4 pg (27.0-35.0); Mean Corpuscular Volume 98.2 fL (81-100); NEUTROPHILS % (AUTO) 73.2 % (40-74); Platelet Count 205 bil/L (150-400)
[2017-03-26 14:01] VITALS: BP 102/44; PULSE 66; RESP 19; O2SAT 98
[2017-03-26] MEDS ORDERED: BENZ-12 PO (15:58)
[2017-03-26 16:03] VITALS: BP 106/45; PULSE 67; RESP 17; O2SAT 98
== END 2017-03-26 16:00 | disposition home or self-care (01) ==
LOC: SED 12:18 → EDBD 12:18 → SED 16:00
DX: R13.10 Dysphagia, unspecified (principal); R19.7 Diarrhea, unspecified; R50.9 Fever, unspecified; M54.2 Cervicalgia; I13.11 Hypertensive heart and chronic kidney disease without heart failure, with stage 5 chronic kidney disease, or end stage renal disease; E11.22 Type 2 diabetes mellitus with diabetic chronic kidney disease; N18.6 End stage renal disease; E78.5 Hyperlipidemia, unspecified; E11.9 Type 2 diabetes mellitus without complications; K21.9 Gastro-esophageal reflux disease without esophagitis; Z87.440 Personal history of urinary (tract) infections; Z79.4 Long term (current) use of insulin; Z79.82 Long term (current) use of aspirin; Z88.1 Allergy status to other antibiotic agents; Z88.5 Allergy status to narcotic agent

== ENCOUNTER 2017-06-02 16:36 | Emergency (ER) | payer MEDICAID ==
[~2017-06-02 16:36] MED LIST changes: +BENZ-12 PO
[2017-06-02 16:43] VITALS: BP 150/66; PULSE 76; RESP 20; O2SAT 97
--- NOTE | 2017-06-02 17:36 | ED.REPORT ---
HPI-General Illness Date of Service Jun 02, 2017 ED Provider: Sourav Griggs MD Patient is a 76 year old female with a history of hypertension, ESRD and diabetes who presents to the ED complaining of suprapubic abdominal pain onset 3 days ago. She reports that she has been belching a lot and having acid come up her throat as well. She has been prescribed pantoprazole for reflux and this is not her primary complaint today though she would like additional medication to help with her reflux symptoms. The patient denies fever or vomiting. She has tried taking Tums this morning and this afternoon without relief of her reflux. The patient's son states that last time she had suprapubic pain that she had a urinary tract infection. While she is on dialysis and she still makes a small amount of urine. The patient reports that she has had a catheterized urine specimen that showed a UTI before and states that her pain feels similar to this. Nursing Notes Stated Complaint: ABD PAIN Chief Complaint: Female Abdominal Pain Nursing Notes Reviewed: Yes Allergies: Coded Allergies: cefazolin sodium (Verified Allergy, Unknown, NO ADR WITH CEFTRIAXONE IN ER , 03/26/17) morphine (Verified Adverse Reaction, Intermediate, Hallucinations, 03/26/17) Family reported morphine caused hallucination Cephalosporins (Verified Adverse Reaction, Unknown, 03/26/17) causes confusion Scheduled Amlodipine (Amlodipine) 10 Mg Tablet 10 MG PO QAM Aspirin (Aspirin) 325 Mg Tablet.dr 325 MG PO QAM Calcium Acetate (Calcium Acetate) 667 Mg Capsule 667 MG PO TIDWM Cefpodoxime Proxetil (Cefpodoxime Proxetil) 200 Mg Tablet 200 MG PO DIRECTED 3 times per week (on Tuesday, , Tuesday) after each dialysis Cefpodoxime Proxetil (Cefpodoxime Proxetil) 200 Mg Tablet 200 MG PO DAILY Cinacalcet HCl (Sensipar) 90 Mg Tablet 60 MG PO BID Clonidine 0.2 mg/day Patch (Catapres TTS-2) 1 Each Patch 1 PATCH TRANSDERM WEEKLY Folic Acid (Folic Acid) 1 Mg Tablet 5 MG PO DAILY Hydralazine (Hydralazine) 50 Mg Tablet 50 MG PO TID Insulin Glargine (Lantus U100 Solostar Insulin Pen) 100 Unit/1 Ml Insuln.pen 5- 10 UNIT SUBQ HS Insulin Lispro (HumaLOG U100 Insulin Pen) 100 Unit/1 Ml Insuln.pen 1-12 UNITS SUBQ TID-INSULIN Blood Sugar Lispro Correction <151 0 units 151-175 1 unit 176-200 2 units 201-225 3 units 226-250 4 units 251-275 5 units 276-300 6 units 301-325 7 units 326-350 8 units 351-375 9 units 376-400 10 units >400 12 units Check blood sugars before meals and at bedtime. Use correction factor only before meals. Isosorbide MN ER (Isosorbide MN ER) 120 Mg Tab.er.24h 120 MG PO QAM Labetalol (Labetalol) 200 Mg Tablet 200 MG PO TID Metoprolol Tartrate (Metoprolol Tartrate) 50 Mg Tablet 50 MG PO BID Multivitamin, Min Cmb#25/FA/D3 (Dialyvite [place] D Tablet) 1 Each Tablet 1 EACH PO QAM Pantoprazole DR (Protonix) 20 Mg Tablet 20 MG PO DAILY Sevelamer Carbonate (Renvela) 800 Mg Tablet 800 MG PO TIDWM WITH MEALS AND SNACKS Sucralfate Susp (Carafate Susp) 1 Gm/10 Ml Oral.susp 1 GM PO QID Scheduled PRN Benzonatate (Tessalon Perle) 100 Mg Capsule 100 MG PO TID PRN PRN For Pain Mag Hydrox/Al Hydrox/Simeth (Antacid M Liquid) 355 Ml Oral.susp 355 ML PO BID PRN PRN For Pain Ondansetron ODT (Zofran ODT) 4 Mg Tablet 4 MG PO Q4H PRN PRN For Nausea General Time Seen by MD: 17:33 Chief Complaint Abdominal pain Hx Obtained From: Patient, Son, Program Management Specialist Arrived By: Walk-in Sudden in Onset?: Yes Onset Occurred: 3 days ago Symptom Duration: Since onset Location: : Abdomen Quality: Burning, Painful Severity: Current: Moderate Recent Healthcare: Recent doctor visit, Recent hospitalization Similar Sx Previous: Yes Past Medical History 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 Dyslipidemia. 2. End-stage renal disease. a. Secondary hyperparathyroidism. b. 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 3. Recurrent urinary tract infections. Urine culture (December 25, 2013) yielded E. coli resistant to Unasyn, ampicillin, piperacillin, and quinolones. 4. Clostridium difficile colitis. 5. Healthcare associated pneumonia 6. DVT 7. diverticulitis 8. ileus with prior small bowel obstruction Aortic stenosis. Reports: Diabetes mellitus, GERD, Hyperlipidemia, Hypertension Past Surgical History 1. diverticular perforation requiring laparotomy and small-bowel resection and primary anastomosis with postoperative abscess and prolonged antibiotics. 2. AV fistula 3. patellar fracture repair 4. traumatic finger amputation Reports: Cataract surgery, Cholecystectomy Smoking History Never Smoker Social History Alcohol Use: Denies alcohol use Other Social History: Good social support, Local resident Ambulatory Status Wheelchair Review of Systems Full Review of Systems Constitutional: Denies: Fever Ears / Nose / Throat: Reports: Throat pain GI: Reports: Abdominal pain, Belching, Denies: Vomiting Neurologic: Reports: Confusion Complete sys rev & neg: except as marked. Physical Exam Vital Signs Vital Signs Date Time Temp Pulse Resp B/P Pulse Ox O2 Delivery O2 Flow Rate FiO2 06/02/17 19:40 37.1 79 18 167/57 96 Room Air 06/02/17 16:43 36.9 76 20 150/66 97 Room Air Initial VS: Reviewed General/Constitutional: Awake, Alert Head / Eyes: Atraumatic, Normocephalic, PERRL, EOMI Respiratory / Chest: Atraumatic, Breath sounds NL, Breath sounds = bilat, No respiratory distress Cardiovascular: Heart rate NL, Regular rhythm, Heart sounds NL, No gallop, No murmurs, No rubs Abdomen: Atraumatic, Soft tolerates firm palpation in all quadrants tender in the suprapubic region Back: Atraumatic right flank percussive tenderness, patient attributes this to falling in the past Upper Extremities Upper Extremity / MS: Atraumatic, Inspection NL diaylsis fistula in the left proximal arm with a palpable thrill Wrist / Hand: Atraumatic Left Thumb: Positive: Amputation..., Deformity present..., Dislocation present..., Ecchymosis present, Erythema present, Felon present, High-press punct wound, Joint effusion present, Nail avulsion..., Neuro deficit present, Open fracture present, Paronychia, ROM reduced, Subungual hematoma, Swelling present..., Tenderness present..., Tendon injury extensor, Tendon injury flexor , Ulnar collat lig laxity, Warmth present amputation to the distal aspects of the first through fourth fingers good radial pulses Lower Extremity / Pelvis / MS: Atraumatic, No swelling, Non-tender Skin: Atraumatic, Color NL, No rash, Warm, Dry Neurologic: Oriented X3, Speech NL Interpretation & Diagnostics Lab Results Interpretation Result Diagram: 06/02/17190106/02/171901 Test 06/02/17 18:55 06/02/17 19:02 Urine Color Dark yellow (YELLOW) Urine Appearance Turbid (CLEAR,HAZY) Urine pH 8.5 (5.0-8.0) Urine Specific [place] 1.020 (1.003-1.035) Urine Protein 300mg/dL (NEG,TRACE) Urine Glucose (UA) Negativemg/dL (NEGATIVE) Urine Ketones Negativemg/dL (NEGATIVE) Urine Occult Blood Moderate (NEGATIVE) Urine Nitrite Positive (NEGATIVE) Urine Bilirubin Negative (NEGATIVE) Urine Urobilinogen 1.0mg/dL (NORMAL) Urine Leukocyte Esterase Moderate (NEGATIVE) Urine RBC 3-10/hpf (0-2) Urine WBC 6-10/hpf (0-5) Urine Epithelial Cells Few/hpf (NONE-MOD) Urine Crystals None seen (NONE SEEN) Urine Bacteria Few/hpf (NONE-FEW) Urine Hyaline Casts None/lpf (NONE) Urine Granular Casts None seen (NONE SEEN) Urine Waxy Casts None seen (NONE SEEN) Urine Red Blood Cell Casts None seen (NONE SEEN) Urine White Blood Cell Casts None seen (NONE SEEN) Urine Mucus None seen (None Seen) Urine Trichomonas None seen (NONE SEEN) Urine Yeast None (NONE SEEN) Urinalysis Comment None Urine Culture Reflexed Indicated White Blood Count 6.2th/mm3 (3.8-10.1) Red Blood Count 3.25mil/mm3 (3.90-5.20) Hemoglobin 10.3g/dL (12.0-15.6) Hematocrit 31.0% (35.0-46.0) Mean Corpuscular Volume 95.4fL (81-100) Mean Corpuscular Hemoglobin 31.7pg (27.0-35.0) Mean Corpuscular Hemoglobin Concent 33.2% (32.0-37.0) Red Cell Distribution Width 13.8% (12.3-15.4) Platelet Count 191bil/L (150-400) Neutrophils (%) (Auto) 69.7% (40-74) Lymphocytes (%) (Auto) 18.7% (14-46) Monocytes (%) (Auto) 9.5% (4-12) Eosinophils (%) (Auto) 1.4% (0-5) Basophils (%) (Auto) 0.5% (0-3) Sodium Level 135mEq/L (134-144) Potassium Level 4.2mEq/L (3.5-5.2) Chloride Level 94mEq/L (97-108) Carbon Dioxide Level 29mmol/L (18-29) Blood Urea Nitrogen 13mg/dL (8-27) Creatinine 2.03mg/dL (0.57-1.00) Estimat Glomerular Filtration Rate 34mL/min (>59) Glucose Level 203mg/dL (60-99) Lactic Acid Level 0.9mmol/L (0.4-2.0) Calcium Level 9.6mg/dL (8.5-10.1) Magnesium Level 1.6mg/dL (1.6-2.6) Total Bilirubin 0.2mg/dL (0.0-1.2) Aspartate Amino Transf (AST/SGOT) 16U/L (0-50) Alanine Aminotransferase (ALT/SGPT) 5U/L (0-32) Alkaline Phosphatase 182U/L (25-165) Total Protein 7.0g/dL (6.4-8.4) Albumin 4.1g/dL (3.4-5.0) Lipase 54U/L (13-60) CT Abd / Pelvis Interpretation IMPRESSION: Suspect chronic renal failure or renal insufficiency. Extensive renal cystic change is present, without hydronephrosis or obstructive nephrolithiasis. Bibasilar alveolar consolidation may reflect compressive atelectasis or superimposed mild pneumonia associated with the bilateral simple appearing pleural effusions discussed above. Dictated by: Ashutosh Sue M.D. on 06/02/2017 at 19:44 Approved by: Ashutosh Sue M.D. on 06/02/2017 at 19:48 Interpretation / Wet Read by: Interpret - Radiologist Re-Eval/Medical Decision Med Decision/Clinical Course Patient is a 76 year old female with a history of hypertension, ESRD and diabetes who presents to the ED complaining of suprapubic abdominal pain for the last 3 days as well as belching and burping stomach acid. Her primary concern today is possible urinary tract infection that she would also like help managing her reflux. Here in the emergency department the patient is alert/awake and nontoxic in appearance. She received a GI cocktail which she reports dramatically improved her reflux symptoms. CT abdomen: Suspect chronic renal failure or renal insufficiency. Extensive renal cystic change is present, without hydronephrosis or obstructive nephrolithiasis. Bibasilar alveolar consolidation may reflect compressive atelectasis or superimposed mild pneumonia associated with the bilateral simple appearing pleural effusions discussed above. Labs: CBC showed no leukocytosis, hematocrit of 31, which is near baseline of 33 coag studies normal, CMP showed no significant electrolyte abnormalities, mild alkaline phosphatase 182, LFTs otherwise unremarkable, glucose 203, BUN 13, creatinine of 2.03 consistent with known kidney disease Urinalysis showed turbid urine with few bacteria, 6-10 WBC, moderate leukocyte esterase. Was sent for culture, equivocal for infection There are no signs this time of any acute surgical intra-abdominal process. I reviewed the patient's previous urine cultures and she was treated here in the emergency department with 1 g of ceftriaxone. Based upon previous culture and sensitivity results she has been prescribed a 7 day course of cefpodoxime advised to take this after dialysis on her dialysis days. She has additionally been prescribed Maalox that she may use for breakthrough GERD symptoms though advised not to take this at the same time as her medications. At this time she is tolerating PO and is nontoxic in appearance with stable vital signs. I feel that she is appropriate for outpatient management with close follow-up with her primary care physician. Prior to discharge follow-up and return precautions were reviewed in detail with the patient who verbalized understanding and agreement with the plan. The patient was discharged in stable condition. Time of Eval: 21:20 Re-Evaluation/Progress Note: Discussed results and plan for discharge. Patient understands and agrees to plan. All questions were addressed. Counseled Regarding: Diagnosis, Lab results, Need for follow-up, When/why to return to ED Discharge & Departure Primary Impression: UTI (urinary tract infection) Urinary tract infection type: site unspecified Hematuria presence: without hematuria Qualified Code: N39.0 - Urinary tract infection, site not specified Additional Impressions: GERD (gastroesophageal reflux disease) Esophagitis presence: esophagitis presence not specified Qualified Code: K21.9 - Gastro-esophageal reflux disease without esophagitis End stage renal disease Hemodialysis patient Disposition: Home Discharge Condition All VS Reviewed: Yes Condition: Stable Patient Instructions: Urinary Tract Infection in Women (ED) Additional Instructions: larissa you for seeking care at the emergency room. Our primary goal today in the Emergency Department was to evaluate you for any life-threatening conditions. Your evaluation was reassuring. Your urine showed evidence of a UTI You will be discharged with a prescription for Cefpodoxime which is an antibiotic, please take as directed. On days 3 you get dialysis this antibiotic should be taken after your dialysis. You can use Mylanta for continued abdominal discomfort. You should follow-up with your primary doctor in the next week. If you continue to experience abdominal pain, you can discuss the being referred to a GI doctor. You should return to the Emergency Department immediately if you develop fevers , vomiting, cough, increasing abdominal pain, lightheadedness or any other concerning signs or symptoms. Thank you for letting us partake in your care today. Referrals: [facility]CP (PCP) [place] Attestation Portions of this note were transcribed by Elenita Rea. I, Dr. Griggs personally performed the history, physical exam and medical decision-making; I reviewed and confirmed the accuracy of the information in the transcribed note. Signed by: Kevin Flores, 06/02/17 Sourav Griggs MD Jun 02, 2017 17:36 Pearl Rea Jun 02, 2017 18:08
[2017-06-02] MEDS ORDERED: HYDROmorphone 0.5 mg/0.5 mL iSecure Syringe IVPUSH PRN (17:40)
[2017-06-02] MEDS ORDERED: Ondansetron 2 mg/mL 2 mL Inj IVPUSH ONE (17:40)
[2017-06-02] MEDS ORDERED: LidocaineVisc 2%:Antacid 1:1 10 mL Syringe PO ONE (18:10)
[2017-06-02 19:02] LABS: APPEARANCE,URINE TURBID (CLEAR,HAZY); COLOR,URINE DARK YELLOW (YELLOW); PH,URINE 8.5 (5.0-8.0)
[2017-06-02 19:03] LABS: OCCULT BLOOD,URINE MODERATE (NEGATIVE)
[2017-06-02 19:13] LABS: BASOPHILS % (AUTO) 0.5 % (0-3); EOSINOPHILS % (AUTO) 1.4 % (0-5); MONOCYTES % (AUTO) 9.5 % (4-12); Mean Corpuscular Hemoglobin 31.7 pg (27.0-35.0); Mean Corpuscular Volume 95.4 fL (81-100); NEUTROPHILS % (AUTO) 69.7 % (40-74); Platelet Count 191 bil/L (150-400)
[2017-06-02 19:34] LABS: Magnesium 1.6 mg/dL (1.6-2.6)
[2017-06-02 19:40] VITALS: BP 167/57; PULSE 79; RESP 18; O2SAT 96
--- NOTE | 2017-06-02 19:49 | DRSVH ---
PROCEDURE: CT KUB ([id number]) INDICATIONS: flank/abd pain.cannot give contrast TECHNIQUE: Noncontrast 5 mm thick sections acquired from the diaphragms to the symphysis. 5 mm thick coronal an d sagittal reformats were then performed. For radiation dose reduction, the following was used: aut omated exposure control, adjustment of mA and/or kV according to patient size. COMPARISON: [facility], CT, CT KUB, 03/23/2017, 21:14. FINDINGS: Image quality: Excellent. Lung bases: Lung bases are abnormal with atelectasis and/or pneumonia at each lung base associated w ith bilateral pleural effusions relatively small on the left than small to moderate in size on the ri ght. Heart size is normal. Urinary system: Both kidneys are diminished in size and associated with a multitude of punctate mari l calcifications and cysts, to the degree that underlying renal insufficiency and chronic renal atrop hy is suspected. No kidney stones. No hydronephrosis or perinephric fat stranding. Both ureters ap pear non-dilated throughout their expected courses. Bladder wall thickness is normal; no calcified b ladder stones. Other solid organs: Liver and spleen are normal in size. Gallbladder appears previously resected. Pancreas is normal in contours. No adrenal nodules. Peritoneum and bowel: Unenhanced bowel loops demonstrate normal wall thickness and caliber. No free fluid or air. Nodes and vessels: No retroperitoneal or mesenteric adenopathy by size criteria. Aorta and inferior vena cava are normal in caliber. Abdominal wall: No ventral hernias. Pelvis: No free pelvic fluid. No inguinal hernias or adenopathy. Bones: No suspicious bony lesions. No vertebral body compression fractures. IMPRESSION: Suspect chronic renal failure or renal insufficiency. Extensive renal cystic change is present, without hydronephrosis or obstructive nephrolithiasis. Bibasilar alveolar consolidation may reflect compressive atelectasis or superimposed mild pneumonia a ssociated with the bilateral simple appearing pleural effusions discussed above. Dictated by: Ashutosh Sue M.D. on 06/02/2017 at 19:44 Approved by: Ashutosh Sue M.D. on 06/02/2017 at 19:48
[2017-06-02] MEDS ORDERED: CEFP200T3 PO (20:28)
[2017-06-02] MEDS ORDERED: cefTRIAXone Inj 1,000 MG in Dextrose 5% Minibag Plus 50 ML IV ONE (20:30)
[2017-06-02] MEDS ORDERED: MAG355OR31 PO (21:17)
== END 2017-06-02 21:23 | disposition home or self-care (01) ==
LOC: SED 16:36
DX: N39.0 Urinary tract infection, site not specified (principal); K21.9 Gastro-esophageal reflux disease without esophagitis; I12.0 Hypertensive chronic kidney disease with stage 5 chronic kidney disease or end stage renal disease; E11.22 Type 2 diabetes mellitus with diabetic chronic kidney disease; N18.6 End stage renal disease; E78.5 Hyperlipidemia, unspecified; Z87.440 Personal history of urinary (tract) infections; D63.1 Anemia in chronic kidney disease; Z79.82 Long term (current) use of aspirin; Z79.4 Long term (current) use of insulin; Z99.2 Dependence on renal dialysis; Z88.1 Allergy status to other antibiotic agents; Z88.5 Allergy status to narcotic agent
CPT/HCPCS: 36415; 74176; 80053; 81000; 83605; 83690; 83735; 85025; 87086; 96365; 99285; J0696